=== PATIENT | male | born 1940 | race Caucasian/White ===

== ENCOUNTER 2016-10-26 12:14 | Emergency (ER) | payer MEDICARE, MEDICAID ==
[2016-10-26 12:51] VITALS: BP 154/45
--- NOTE | 2016-10-26 13:08 | EDM.PDOC ---
ED HPI DIZZINESS - General Time Seen by Provider: 10/26/16 12:30 Source of Information: Reports: Patient Exam Limitations: Reports: No limitations - History of Present Illness INITIAL COMMENTS - FREE TEXT/NARRATIVE: Patient presents with dizziness that has been worsening the last four days. A few days before that he noticed he felt dizzy when first standing up from sitting or lying; now he notices it when sitting up from lying but not from standing to sitting. He denies spinning but says it is lightheaded and almost like he could black out. This lasts 1-2 minutes if he remains standing but after resolving can recur while standing or walking. He has a chronic loose, unproductive cough that is unchanged with his COPD. Chronic dyspnea that seems a little worse lately. He denies any chest pain or pressure, N/V, diarrhea but has been constipated the last few days; did pass stool last night. He hasn't been eating much the last 2-3 days and says he just has no appetite. He had half a piece of chicken pot pie last night but really only fluids (water, manpreet- aid and milk) the last 2 days. He denies alcohol but smokes hand-rolled cigarettes about 20-30 a day for the last 65 years. For the last 18 months he has had a Pierce catheter that gets changed monthly; this is for prostate hypertrophy and cancer that was causing kidney failure due to urine retention/ obstruction. He hasn't noticed any cloudy urine but says he saw blood in it two weeks ago. He saw his PCP in [place] a week ago for the dizziness and when it worsened 4 days ago was told to stop his Atenolol which he did. He has hypertension, prostate cancer that failed treatment and is currently untreated, untreated kidney disease. He lived much of his life homeless, on the streets of [place] and [place], but has been living in a house provided by some friends the last 14 years. - Related Data Allergies/ADRs: Allergies Allergy/AdvReac Type Severity Reaction Status Date / Time No Known Drug Allergies Allergy Cannot Verified 03/11/15 13:55 Remember Home Meds: Home Meds Atenolol [Tenormin] 25 mg PO DAILY 03/11/15 [History] Finasteride [Proscar] 5 mg PO DAILY 03/11/15 [History] Hydrocodone/Acetaminophen [[place] 10-325] 1 each PO Q6H PRN 03/11/15 [History] Sertraline [Zoloft] 25 mg PO DAILY 03/11/15 [History] Tamsulosin [Flomax] 0.4 mg PO DAILY 03/11/15 [History] atorvaSTATin [Lipitor] 10 mg PO DAILY 03/11/15 [History] Warfarin [Coumadin] 2.5 mg PO DAILY 10/26/16 [History] Past Medical History Other Genitourinary History: chronic kidney disease, prostate CA Social & Family History - Tobacco Use Smoking Status *Q: Current Every Day Smoker Years of Tobacco use: 63 - Alcohol Use Days Per Week of Alcohol Use: 2 Number of Drinks Per Day: 5 Total Drinks Per Week: 10 - Recreational Drug Use Recreational Drug Use: No ED ROS GENERAL - Review of Systems Review Of Systems: See Below Constitutional: Denies: fever, diaphoresis HEENT: Denies: Vertigo, Vision change Respiratory: Reports: Shortness of Breath, Cough. Denies: Sputum Cardiovascular: Reports: Lightheadedness. Denies: Chest pain, Edema, Syncope Endocrine: Denies: fatigue GI/Abdominal: Reports: Anorexia, Constipation. Denies: Abdominal pain, Diarrhea , Nausea, Vomiting : Denies: dysuria, flank pain Musculoskeletal: Reports: no symptoms Skin: Denies: cyanosis, jaundice, mottled, pallor, diaphoresis Neurological: Reports: Dizziness. Denies: Confusion, Seizure, Trouble Speaking , Change in Speech Psychiatric: Denies: Agitation, Anxiety, Confusion ED EXAM, DIZZINESS - Physical Exam Exam: See Below Exam Limited By: No limitations General Appearance: alert, WD/WN, no apparent distress Eye Exam: bilateral eye: EOMI, normal inspection, PERRL Ears: normal external exam, hearing grossly normal Nose: normal inspection Throat/Mouth: Normal lips, Normal voice, No airway compromise Head Exam: atraumatic, normocephalic Neck: normal inspection, supple, non-tender, full range of motion Respiratory/Chest: no respiratory distress, no accessory muscle use, other ( mild crackles and transient inspiratory wheeze heard throughout). No: decreased breath sounds, stridor Cardiovascular: normal peripheral pulses, regular rate, rhythm, no murmur GI/Abdominal: normal bowel sounds, soft, non tender, no organomegaly, no distention, no mass Neurological: alert, normal mood/affect, CN II-XII intact, no motor/sensory deficits, oriented x 3 Extremities: normal inspection, normal range of motion, no pedal edema Psychiatric: normal affect, normal mood Skin Exam: Warm, Dry, Intact, Normal color, No rash EKG INTERPRETATION Rhythm: NSR Course - Vital Signs Last Recorded V/S: Last Vital Signs Temp 98.0 F 10/26/16 12:32 Pulse 98 10/26/16 12:32 Resp 22 H 10/26/16 12:32 BP 154/45 H 10/26/16 12:32 Pulse Ox 95 10/26/16 12:32 Orthostatic Blood Pressure [ 117/70 Standing] Orthostatic Blood Pressure [ 115/50 Sitting] Orthostatic Blood Pressure [ 146/59 Supine] - Orders/Labs/Meds Orders: Active Orders 24 hr Category Date Time Status EKG Documentation Completion [RC] ASDIRECTED Care 10/26/16 12:47 Active Chest 2V [CR] Stat Exams 10/26/16 12:44 Taken Chest wo Cont [CT] Stat Exams 10/26/16 14:09 Taken CULTURE URINE [RM] Stat Lab 10/26/16 13:40 Received EKG 12 Lead [EK] Routine Ther 10/26/16 12:44 Ordered Labs: Laboratory Tests 10/26/16 10/26/16 10/26/16 Range/Units 13:00 13:00 13:00 WBC 15.1 H (5.0-10.0) 10^3/uL RBC 3.57 L (4.50-6.00) 10^6/uL Hgb 10.7 L (13.0-17.0) g/dL Hct 32.5 L (40.0-52.0) % MCV 91.2 (82.0-92.0) fL MCH 30.1 (27.0-31.0) pg MCHC 33.0 (32.0-36.0) g/dL RDW 14.2 (11.5-14.5) % Plt Count 366 H (150-300) 10^3/uL MPV 8.1 (7.4-10.4) fL Neut % (Auto) 87.6 H (50.0-70.0) % Lymph % (Auto) 8.2 L (20.0-40.0) % [place] % (Auto) 3.9 (2.0-8.0) % Eos % (Auto) 0.3 L (1.0-3.0) % Baso % (Auto) 0.0 (0.0-1.0) % Neut # 13.3 H (2.5-7.0) 10^3/uL Lymph # 1.2 (1.0-4.0) 10^3/uL [place] # 0.6 (0.1-0.8) 10^3/uL Eos # 0.0 L (0.1-0.3) 10^3/uL Baso # 0.0 (0.0-0.1) 10^3/uL PT 37.5 H (8.9-11.4) SEC INR 3.5 H (0.9-1.1) Sodium 141 (136-145) mmol/L Potassium 5.4 H (3.3-5.3) mmol/L Chloride 102 (98-115) mmol/L Carbon Dioxide 20.7 L (21.0-32.0) mmol/L BUN 47 H (6-25) mg/dL Creatinine 2.38 H (0.51-1.17) mg/dL Est Cr Clr Drug Dosing 26.41 mL/min Estimated GFR (MDRD) 27 mL/min Glucose 125 H (70-110) mg/dL Calcium 8.4 L (8.7-10.3) mg/dL Total Bilirubin 0.2 (0.2-1.0) mg/dL AST 40 H (15-37) U/L ALT 20 (12-78) U/L Alkaline Phosphatase 730 H (46-116) IU/L Total Protein 6.4 (6.4-8.2) g/dL Albumin 2.30 L (3.00-4.80) g/dL Specimen Type Urine Color (YELLOW) Urine Appearance (CLEAR) Urine pH (5.0-9.0) Ur Specific [place] (1.005-1.030) Urine Protein (NEGATIVE) mg/dL Urine Glucose (UA) (NEGATIVE) mg/dL Urine Ketones (NEGATIVE) mg/dL Urine Occult Blood (NEGATIVE) Urine Nitrite (NEGATIVE) Urine Bilirubin (NEGATIVE) Urine Urobilinogen (0.2-1.0) E.U./dL Ur Leukocyte Esterase (NEGATIVE) Urine RBC /HPF Urine WBC /HPF Ur Epithelial Cells /LPF Other Crystals /HPF Amorphous Sediment (0/HPF) /HPF Urine Bacteria (NONE TO FEW) /HPF Urine Other Urine Yeast (NEGATIVE) /HPF Urinalysis Comment 10/26/16 Range/Units 13:40 WBC (5.0-10.0) 10^3/uL RBC (4.50-6.00) 10^6/uL Hgb (13.0-17.0) g/dL Hct (40.0-52.0) % MCV (82.0-92.0) fL MCH (27.0-31.0) pg MCHC (32.0-36.0) g/dL RDW (11.5-14.5) % Plt Count (150-300) 10^3/uL MPV (7.4-10.4) fL Neut % (Auto) (50.0-70.0) % Lymph % (Auto) (20.0-40.0) % [place] % (Auto) (2.0-8.0) % Eos % (Auto) (1.0-3.0) % Baso % (Auto) (0.0-1.0) % Neut # (2.5-7.0) 10^3/uL Lymph # (1.0-4.0) 10^3/uL [place] # (0.1-0.8) 10^3/uL Eos # (0.1-0.3) 10^3/uL Baso # (0.0-0.1) 10^3/uL PT (8.9-11.4) SEC INR (0.9-1.1) Sodium (136-145) mmol/L Potassium (3.3-5.3) mmol/L Chloride (98-115) mmol/L Carbon Dioxide (21.0-32.0) mmol/L BUN (6-25) mg/dL Creatinine (0.51-1.17) mg/dL Est Cr Clr Drug Dosing mL/min Estimated GFR (MDRD) mL/min Glucose (70-110) mg/dL Calcium (8.7-10.3) mg/dL Total Bilirubin (0.2-1.0) mg/dL AST (15-37) U/L ALT (12-78) U/L Alkaline Phosphatase (46-116) IU/L Total Protein (6.4-8.2) g/dL Albumin (3.00-4.80) g/dL Specimen Type Urinfol Urine Color Dark yellow H (YELLOW) Urine Appearance Turbid H (CLEAR) Urine pH >= 9.0 (5.0-9.0) Ur Specific [place] 1.015 (1.005-1.030) Urine Protein 100 H (NEGATIVE) mg/dL Urine Glucose (UA) Negative (NEGATIVE) mg/dL Urine Ketones Negative (NEGATIVE) mg/dL Urine Occult Blood Small H (NEGATIVE) Urine Nitrite Negative (NEGATIVE) Urine Bilirubin Negative (NEGATIVE) Urine Urobilinogen 0.2 (0.2-1.0) E.U./dL Ur Leukocyte Esterase Large H (NEGATIVE) Urine RBC 0-5 /HPF Urine WBC Packed /HPF Ur Epithelial Cells Rare /LPF Other Crystals Few /HPF Amorphous Sediment Few (0/HPF) /HPF Urine Bacteria Many H (NONE TO FEW) /HPF Urine Other See note H Urine Yeast Few H (NEGATIVE) /HPF Urinalysis Comment Meds: Medications Discontinued Medications Generic Name Dose Route Start Last Admin Trade Name Freq PRN Reason Stop Dose Admin Sodium Chloride 1,000 mls @ 999 mls/hr 10/26/16 14:00 10/26/16 13:55 Normal Saline IV 10/26/16 15:00 999 mls/hr .BOLUS ONE Administration Sodium Chloride 1,000 mls @ 999 mls/hr 10/26/16 13:42 10/26/16 15:11 Normal Saline IV 10/26/16 14:42 Not Given .BOLUS ONE Ciprofloxacin/Dextrose 400 mg/ 200 mls @ 200 mls/hr 10/26/16 14:24 10/26/16 14:45 Premix IV 10/26/16 15:23 200 mls/hr ONETIME ONE Administration - Re-Assessments/Exams Free Text/Narrative Re-Assessment/Exam: 10/26/16 16:10 CXR showed possible paratracheal mass but 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 CT does indicate concern for likely metastatic cancer from prostate to vertebrae and lung. Recommend bone scan. Discussed this with patient and he already has been aware of likely metastatic disease and continues to wish no further testing or treatment for it. Will treat the UTI and follow up with PCP. Orthostatic blood pressures have improved following IV fluids. Treated with IV Cipro in ER also. His dizziness is much improved as well. Patient discharged in stable condition. Departure - Departure Time of Disposition: 16:04 Disposition: Home, Self-Care 01 Condition: good Clinical Impression: Prostatic cancer UTI (urinary tract infection) Qualifiers: Urinary tract infection type: acute cystitis Hematuria presence: without hematuria Qualified Code(s): N30.00 - Acute cystitis without hematuria Additional Instructions: 1. Take the Cipro antibiotic as directed. 2. Drink 8 cups of water daily. 3. Follow up with your PCP in 7-10 days for recheck; sooner if worsening. 4. Call the Coumadin clinic to see when you should take coumadin based on your INR of 3.5 and treatment with Cipro. - My Orders Last 24 Hours: My Active Orders 10/26/16 12:44 Chest 2V [CR] Stat EKG 12 Lead [EK] Routine 10/26/16 12:47 EKG Documentation Completion [RC] ASDIRECTED 10/26/16 13:40 CULTURE URINE [RM] Stat 10/26/16 14:09 Chest wo Cont [CT] Stat - Assessment/Plan Last 24 Hours: My Active Orders 10/26/16 12:44 Chest 2V [CR] Stat EKG 12 Lead [EK] Routine 10/26/16 12:47 EKG Documentation Completion [RC] ASDIRECTED 10/26/16 13:40 CULTURE URINE [RM] Stat 10/26/16 14:09 Chest wo Cont [CT] Stat
[2016-10-26] MEDS ORDERED: Sodium Chloride 0.9% 1,000 ML IV ONE ×2 (13:42→14:00)
[2016-10-26] MEDS ORDERED: Ciprofloxacin in D5W 400 MG in Premix Bag 1 BAG IV ONE ×2 (14:24)
== END 2016-10-26 16:27 | disposition home or self-care (01) ==
LOC: KA.ED 12:14
DX: R42 Dizziness and giddiness (principal); N39.0 Urinary tract infection, site not specified; C61 Malignant neoplasm of prostate; J44.9 Chronic obstructive pulmonary disease, unspecified; N18.9 Chronic kidney disease, unspecified; Z79.01 Long term (current) use of anticoagulants; Z79.899 Other long term (current) drug therapy; F17.210 Nicotine dependence, cigarettes, uncomplicated; Z93.6 Other artificial openings of urinary tract status
CPT/HCPCS: 36415; 71020; 71250; 80053; 81001; 85025; 85610; 87086; J0744; J7030; 87088; 87186; 93005; 96361; 96365; 99284

== ENCOUNTER 2016-12-23 12:10 | Inpatient (IN) | payer MEDICARE, MEDICAID ==
[2016-12-23] MEDS ORDERED: Sodium Chloride 0.9% 1,000 ML IV ONE (12:54)
--- NOTE | 2016-12-23 13:19 | EDM.PDOC ---
ED HPI GENERAL MEDICAL PROBLEM - General Time Seen by Provider: 12/23/16 12:50 Source of Information: Reports: Patient History Limitations: Reports: No Limitations - History of Present Illness INITIAL COMMENTS - FREE TEXT/NARRATIVE: Patient presents with gross hematuria in his larry bag. He has had chronic anemia and is on warfarin. He denies any pain or fever. - Related Data Allergies Allergy/AdvReac Type Severity Reaction Status Date / Time No Known Drug Allergies Allergy Cannot Verified 12/23/16 13:03 Remember Home Meds: Home Meds Finasteride [Proscar] 5 mg PO DAILY 03/11/15 [History] Hydrocodone/Acetaminophen [[place] 10-325] 1 each PO Q6H PRN 03/11/15 [History] Sertraline [Zoloft] 25 mg PO DAILY 03/11/15 [History] Tamsulosin [Flomax] 0.4 mg PO DAILY 03/11/15 [History] atorvaSTATin [Lipitor] 10 mg PO DAILY 03/11/15 [History] Warfarin [Coumadin] 2.5 mg PO DAILY 10/26/16 [History] Past Medical History Cardiovascular History: Reports: Blood Clots/VTE/DVT Respiratory History: Reports: COPD Genitourinary History: Reports: Other (See Below) Other Genitourinary History: chronic kidney disease, prostate CA Musculoskeletal History: Reports: Arthritis Neurological History: Reports: Vertigo Oncologic (Cancer) History: Reports: Prostate - Past Surgical History HEENT Surgical History: Reports: Cataract Surgery Social & Family History - Family History Family Medical History: Noncontributory - Tobacco Use Smoking Status *Q: Current Every Day Smoker Years of Tobacco use: 63 Packs/Tins Daily: 1 Used Tobacco, but Quit: No Second Hand Smoke Exposure: No - Caffeine Use Caffeine Use: Reports: Coffee - Alcohol Use Days Per Week of Alcohol Use: 2 Number of Drinks Per Day: 5 Total Drinks Per Week: 10 - Recreational Drug Use Recreational Drug Use: No ED ROS GENERAL - Review of Systems Review Of Systems: See Below Constitutional: Denies: Fever, Chills, Malaise, Weakness HEENT: Denies: Throat Pain, Vision Change Respiratory: Denies: Shortness of Breath, Cough Cardiovascular: Denies: Chest Pain, Lightheadedness, Syncope GI/Abdominal: Denies: Abdominal Pain, Nausea, Vomiting : Reports: Hematuria. Denies: Dysuria, Flank Pain Musculoskeletal: Denies: Neck Pain, Shoulder Pain Skin: Reports: Pallor. Denies: Cyanosis, Jaundice, Mottled, Diaphoresis Neurological: Denies: Confusion, Dizziness, Headache, Seizure, Syncope Psychiatric: Denies: Agitation, Anxiety, Confusion ED EXAM, RENAL/ - Physical Exam Exam: See Below Exam Limited By: No Limitations General Appearance: Alert, WD/WN, No Apparent Distress Eye Exam: Bilateral Eye: EOMI, Normal Inspection, PERRL Ears: Normal External Exam, Hearing Grossly Normal Nose: Normal Inspection, No Blood Throat/Mouth: Normal Lips, Normal Voice, No Airway Compromise Head: Atraumatic, Normocephalic Neck: Normal Inspection, Full Range of Motion Respiratory/Chest: No Respiratory Distress, Lungs Clear Cardiovascular: Regular Rate, Rhythm, No Murmur GI/Abdominal: Normal Bowel Sounds, Soft, Non-Tender, No Organomegaly, No Distention Back Exam: CVA Tenderness (R) (mild to moderate). No: CVA Tenderness (L) Extremities: Normal Range of Motion, Non-Tender, No Pedal Edema Neurological: Alert, Oriented, Normal Cognition, No Motor/Sensory Deficits Psychiatric: Normal Affect, Normal Mood Skin Exam: Warm, Dry, Intact, No Rash, Pallor Course - Orders/Labs/Meds Orders: Active Orders 24 hr Category Date Time Status BASIC METABOLIC PANEL,BMP [CHEM] Stat Lab 12/23/16 12:10 Received INR,PT,PROTHROMBIN TIME [COAG] Stat Lab 12/23/16 12:10 Received RED BLOOD CELLS LP [BBK] Stat Lab 12/23/16 12:40 Ordered TYPE AND SCREEN [BBK] Stat Lab 12/23/16 12:40 Ordered TYPE AND SCREEN [BBK] Stat Lab 12/23/16 12:53 Ordered UA W/MICROSCOPIC [URIN] Stat Lab 12/23/16 12:35 Received Sodium Chloride 0.9% [Normal Saline] 1,000 ml Med 12/23/16 12:54 Active IV .BOLUS Blood Transfusion Reflex Orders [OM.PC] Routine Oth 12/23/16 12:53 Ordered Medication Orders Sodium Chloride (Normal Saline) 1,000 mls @ 999 mls/hr IV .BOLUS ONE Stop: 12/23/16 13:54 Last Admin: 12/23/16 13:04 Dose: 999 mls/hr Labs: Laboratory Tests 12/23/16 Range/Units 12:10 WBC 16.6 H (5.0-10.0) 10^3/uL RBC 2.61 L (4.50-6.00) 10^6/uL Hgb 7.7 L (13.0-17.0) g/dL Hct 23.2 L (40.0-52.0) % MCV 89.0 (82.0-92.0) fL MCH 29.4 (27.0-31.0) pg MCHC 33.0 (32.0-36.0) g/dL RDW 16.0 H (11.5-14.5) % Plt Count 330 H (150-300) 10^3/uL MPV 7.8 (7.4-10.4) fL Neut % (Auto) 88.0 H (50.0-70.0) % Lymph % (Auto) 6.4 L (20.0-40.0) % [place] % (Auto) 4.8 (2.0-8.0) % Eos % (Auto) 0.4 L (1.0-3.0) % Baso % (Auto) 0.4 (0.0-1.0) % Neut # (Auto) 14.5 H (2.5-7.0) 10^3/uL Lymph # (Auto) 1.1 (1.0-4.0) 10^3/uL [place] # (Auto) 0.8 (0.1-0.8) 10^3/uL Eos # (Auto) 0.1 (0.1-0.3) 10^3/uL Baso # (Auto) 0.1 (0.0-0.1) 10^3/uL Meds: Medications Generic Name Dose Route Start Last Admin Trade Name Freq PRN Reason Stop Dose Admin Sodium Chloride 1,000 mls @ 999 mls/hr 12/23/16 12:54 12/23/16 13:04 Normal Saline IV 12/23/16 13:54 999 mls/hr .BOLUS ONE Administration - Re-Assessments/Exams Free Text/Narrative Re-Assessment/Exam: 12/23/16 13:46 The gross hematuria made lab analysis difficult but was run on the supernatant they told me. We will give 2 units of blood after the type/cross. I talked with Dr. Dyer who will admit patient. He wants to use Vit K rather than FFP ( which is not in house currently). Giving a gram of Rocephin which showed susceptible on urine culture two months ago. Cipro was also susceptible but has higher risk of increasing the warfarin effect so will avoid today. Patient stable. 12/23/16 14:57 Patient will be admitted for transfusion and management of anemia, coumadin therapy and UTI. Departure - Departure Time of Disposition: 14:57 Disposition: Admitted As Inpatient 66 Condition: good Clinical Impression: Hematuria, Elevated international normalized ratio (INR) due to prior anticoagulant medication ingestion Anemia Qualifiers: Anemia type: iron deficiency Iron deficiency anemia type: chronic blood loss Qualified Code(s): D50.0 - Iron deficiency anemia secondary to blood loss ( chronic) UTI (urinary tract infection) due to urinary indwelling Larry catheter Qualifiers: Indwelling urinary catheter type: indwelling urethral catheter Encounter type: initial encounter Qualified Code(s): T83.511A - Infection and inflammatory reaction due to indwelling urethral catheter, initial encounter; N39.0 - Urinary tract infection, site not specified Chronic renal failure Qualifiers: Chronic kidney disease stage: unspecified stage Qualified Code(s): N18.9 - Chronic kidney disease, unspecified - Discharge Information - My Orders Last 24 Hours: My Active Orders 12/23/16 12:10 BASIC METABOLIC PANEL,BMP [CHEM] Stat INR,PT,PROTHROMBIN TIME [COAG] Stat 12/23/16 12:35 UA W/MICROSCOPIC [URIN] Stat 12/23/16 12:40 RED BLOOD CELLS LP [BBK] Stat TYPE AND SCREEN [BBK] Stat 12/23/16 12:53 TYPE AND SCREEN [BBK] Stat Blood Transfusion Reflex Orders [OM.PC] Routine 12/23/16 12:54 Sodium Chloride 0.9% [Normal Saline] 1,000 ml IV .BOLUS - Assessment/Plan Last 24 Hours: My Active Orders 12/23/16 12:10 BASIC METABOLIC PANEL,BMP [CHEM] Stat INR,PT,PROTHROMBIN TIME [COAG] Stat 12/23/16 12:35 UA W/MICROSCOPIC [URIN] Stat 12/23/16 12:40 RED BLOOD CELLS LP [BBK] Stat TYPE AND SCREEN [BBK] Stat 12/23/16 12:53 TYPE AND SCREEN [BBK] Stat Blood Transfusion Reflex Orders [OM.PC] Routine 12/23/16 12:54 Sodium Chloride 0.9% [Normal Saline] 1,000 ml IV .BOLUS
[2016-12-23 13:25] LABS: CHLORIDE,CL 106 mmol/L (98-115); SODIUM,NA 141 mmol/L (136-145)
[2016-12-23] MEDS: cefTRIAXone 1 GM Vial IVPUSH SCH (14:03)
[2016-12-23] MEDS ORDERED: Sodium Chloride 0.9% 250 ML IV SCH (15:30)
[2016-12-23] MEDS: Acetaminophen/HYDROcodone 325-10 MG Tab PO PRN (23:37)
[2016-12-24] MEDS: Finasteride 5 MG Tab PO SCH (09:32)
[2016-12-24] MEDS: Tamsulosin 0.4 MG Cap.ER PO SCH (09:32)
[2016-12-24] MEDS: Acetaminophen/HYDROcodone 325-10 MG Tab PO PRN ×2 (09:32→19:31)
[2016-12-24] MEDS: Sertraline 50 MG Tab PO SCH (09:34)
--- NOTE | 2016-12-24 09:42 | PCM.HP ---
H&P History of Present Illness - General Date of Service: 12/24/16 Admit Problem/Dx: Admission Diagnosis/Problem Admission Diagnosis/Problem Anemia due to blood loss Source of Information: Provider History Limitations: Reports: No Limitations Bilateral Shoulder Pain Score (Numeric/FACES): 6 - Related Data Allergies/Adverse Reactions: Allergies Allergy/AdvReac Type Severity Reaction Status Date / Time No Known Drug Allergies Allergy Cannot Verified 12/23/16 13:03 Remember Home Medications: Home Meds Finasteride [Proscar] 5 mg PO DAILY 03/11/15 [History] Hydrocodone/Acetaminophen [[place] 10-325] 1 each PO Q6H PRN 03/11/15 [History] Sertraline [Zoloft] 25 mg PO DAILY 03/11/15 [History] Tamsulosin [Flomax] 0.4 mg PO DAILY 03/11/15 [History] atorvaSTATin [Lipitor] 10 mg PO DAILY 03/11/15 [History] Warfarin [Coumadin] 2.5 mg PO DAILY 10/26/16 [History] Past Medical History HEENT History: Reports: Hard of Hearing Cardiovascular History: Reports: Blood Clots/VTE/DVT Respiratory History: Reports: COPD Other Respiratory History: Denies dyspnea today Genitourinary History: Reports: Other (See Below) Other Genitourinary History: chronic kidney disease, prostate CA Musculoskeletal History: Reports: Arthritis Neurological History: Reports: Vertigo Psychiatric History: Reports: Anxiety, Depression Hematologic History: Reports: Blood Transfusion(s) Oncologic (Cancer) History: Reports: Prostate - Infectious Disease History Infectious Disease History: Reports: Chicken Pox, Influenza, Measles, Mumps - Past Surgical History HEENT Surgical History: Reports: Cataract Surgery Social & Family History - Family History HEENT: Reports: None Cardiac: Reports: Other (See Below) (Both mother father unknown etiology) Respiratory: Reports: None GI: Reports: None : Reports: None OBGYN: Reports: None Musculoskeletal: Reports: None Neurological: Reports: None Psychiatric: Reports: None Endocrine/Metabolic: Reports: None Hematologic: Reports: None Immunologic: Reports: None Dermatologic: Reports: None Oncologic: Reports: None - Tobacco Use Smoking Status *Q: Current Every Day Smoker Years of Tobacco use: 63 Packs/Tins Daily: 1.5 Used Tobacco, but Quit: No Second Hand Smoke Exposure: No - Caffeine Use Caffeine Use: Reports: Coffee, Soda Caffeine Use Comment: coffee daily, seldom soda - Alcohol Use Days Per Week of Alcohol Use: 2 Number of Drinks Per Day: 1 Total Drinks Per Week: 2 Date of Last Drink: 12/20/16 - Recreational Drug Use Recreational Drug Use: No H&P Review of Systems - Review of Systems: Review Of Systems: See Below General: Reports: Weakness, Other (loss of balance at times, headaches on/off started about a week ago. ) HEENT: Reports: Headaches, Vertigo. Denies: Sore Throat Pulmonary: Reports: Cough, Sputum Cardiovascular: Denies: Chest Pain, Palpitations Gastrointestinal: Reports: Constipation (2 days last BM. ) Genitourinary: Reports: Other (Pierce catherter--chronic--gets changed monthly. ) Musculoskeletal: Reports: Shoulder Pain, Arm Pain, Back Pain, Muscle Pain. Denies: Muscle Stiffness Skin: Reports: Dryness, Bruising Psychiatric: Reports: No Symptoms Exam - Exam Exam: See Below - Vital Signs Vital Signs: Last Vital Signs Temp 97.0 F 12/24/16 06:51 Pulse 67 12/24/16 06:51 Resp 20 12/24/16 06:51 BP 123/67 12/24/16 06:51 Pulse Ox 97 12/24/16 06:51 Weight: 174 lb 11.2 oz - Exam General: Alert, Oriented, 4 HEENT: EOMI, Hearing Intact, Pupils Reactive, Other (mucous in eyes. ) Neck: Supple Lungs: Rhonchi. No: Wheezing Cardiovascular: Regular Rate, Regular Rhythm Abdomen: Normal Bowel Sounds, Soft (Male) Exam: Deferred Back Exam: No: CVA Tenderness (L), CVA Tenderness (R) Neurological: Cranial Nerves Intact, Reflexes Equal Bilateral Neuro Extensive - Mental Status: Alert, Oriented x3, Normal Mood/Affect, Normal Cognition Neuro Extensive - Motor, Sensory, Reflexes: CN II-XII Intact, Normal Gait, Normal Reflexes Psychiatric: Alert, Normal Affect, Normal Mood. No: Anxious - Patient Data Lab Results last 24 hrs: Laboratory Results - last 24 hr 12/24/16 12/24/16 Range/Units 07:00 07:00 WBC 14.0 H (5.0-10.0) 10^3/uL RBC 3.06 L (4.50-6.00) 10^6/uL Hgb 8.7 L (13.0-17.0) g/dL Hct 27.0 L (40.0-52.0) % MCV 88.3 (82.0-92.0) fL MCH 28.4 (27.0-31.0) pg MCHC 32.2 (32.0-36.0) g/dL RDW 15.3 H (11.5-14.5) % Plt Count 278 (150-300) 10^3/uL MPV 8.6 (7.4-10.4) fL Neut % (Auto) 78.5 H (50.0-70.0) % Lymph % (Auto) 13.7 L (20.0-40.0) % [place] % (Auto) 6.0 (2.0-8.0) % Eos % (Auto) 0.8 L (1.0-3.0) % Baso % (Auto) 1.0 (0.0-1.0) % Neut # (Auto) 11.1 H (2.5-7.0) 10^3/uL Lymph # (Auto) 1.9 (1.0-4.0) 10^3/uL [place] # (Auto) 0.8 (0.1-0.8) 10^3/uL Eos # (Auto) 0.1 (0.1-0.3) 10^3/uL Baso # (Auto) 0.1 (0.0-0.1) 10^3/uL PT 49.4 H (8.9-11.4) SEC INR 4.6 H* (0.9-1.1) Result Diagrams: 12/25/16 09:15 12/23/16 12:10 *Q Meaningful Use (ADM) - VTE *Q VTE Criteria *Q: - Stroke *Q Stroke Criteria *Q: - AMI *Q AMI Criteria *Q: Problem List Initiated/Reviewed/Updated: Yes Orders Last 24hrs: Active Orders 24 hr Category Date Time Status Patient Status [ADT] Routine ADT 12/23/16 14:51 Ordered Bedrest Bathroom Privileges [RC] ASDIRECTED Care 12/23/16 15:15 Active Intake and Output [RC] 1400,2200,0600 Care 12/23/16 15:15 Active Up ad Jana [RC] ASDIRECTED Care 12/23/16 15:15 Active Vital Signs [RC] 0300,0700,1100,1500,1900,2300 Care 12/23/16 15:15 Active Regular Diet [DIET] Diet 12/23/16 Dinner Active INR,PT,PROTHROMBIN TIME [COAG] AM Lab 12/25/16 05:11 Ordered Acetaminophen/HYDROcodone [[place] 325-10 MG] Med 12/23/16 19:45 Active 1 tab PO Q6H PRN Finasteride [Proscar] Med 12/24/16 09:00 Active 5 mg PO DAILY Sertraline [Zoloft] Med 12/24/16 09:00 Active 25 mg PO DAILY Sodium Chloride 0.9% [Normal Saline] 250 ml Med 12/23/16 15:30 Active IV ASDIRECTED Tamsulosin [Flomax] Med 12/24/16 09:00 Active 0.4 mg PO DAILY Transfuse RBC [Transfuse Red Blood Cells] [COMM] Urgent Oth 12/23/16 15:16 Ordered Medication Orders Hydrocodone Bitart/Acetaminophen ([place] 325-10 Mg) 1 tab PO Q6H PRN PRN Reason: Pain Last Admin: 12/23/16 23:37 Dose: 1 tab Ceftriaxone Sodium (Rocephin) 1 gm IVPUSH Q24H ANI Last Admin: 12/23/16 14:03 Dose: 1 gm Finasteride (Proscar) 5 mg PO DAILY ANI Sodium Chloride (Normal Saline) 250 mls @ 100 mls/hr IV ASDIRECTED ANI Sertraline HCl (Zoloft) 25 mg PO DAILY ANI Tamsulosin HCl (Flomax) 0.4 mg PO DAILY [facility] Assessment/Plan Comment:: HISTORY OF PRESENT ILLNESS 76-year-old gentleman was admitted through the ED do to gross hematuria in his indwelling Pierce catheter. He does have a history of anemia with prostate CA and renal disease however I do not see he has ever had an anemia workup. He no longer takes Lupron injections for prostate CA. He's had an indwelling Pierce catheter for over a year as he refused a suprapubic catheter. His initial hemoglobin was 7.7 and he did receive 2 units of transfusion upon admission. He does have a history of DVT right lower extremities (2 years ago due to edema right lower extremity) without pulmonary embolism history and he is been on 3 mg of Coumadin daily. His INR was elevated to 7 and since he did have some gross hematuria he was treated with vitamin K. UROLOGICAL HISTORY Most recent urological consultation was October 2015; due to the patient's castrate resistant metastatic prostate cancer, urologist recommended medical oncology evaluation at that time however Efrain had refused. He does have a history of bilateral hydroureteronephrosis along with a history of urinary retention however he has refused suprapubic catheter and has agreed for indwelling Pierce catheterization--to be changed monthly. CODE STATUS full code IMPRESSION/PLAN Hematuria, gross, elevated INR. Will hold Coumadin, monitor for any hemodynamic instability. Vitamin K given last night we'll assess INR in a.m. History of DVT; right, common femoral vein, proximal deep femoral vein, proximal to more vein and popliteal veins, has been on Coumadin since September, Chronic kidney disease, BUN elevated likely due to hemolysis/bleeding, baseline creatinine 2.2-2.4 History of bilateral hydroureteronephrosis along with a history of urinary retention, indwelling Pierce catheter, due for catheter change, Dizziness, with recent recent history of orthostatic hypotension, blood pressure slightly low, since indwelling Pierce catheter no longer requiring Alpha -minh medication, discontinue both finasteride and Flomax Tobacco dependency, 28 mg combined nicotine patch applied SECONDARY DIAGNOSIS Hyperlipidemia Hypertension, blood pressure slightly low, discontinue alpha-minh medication History of prostate CA, no longer on Lupron. Depression, Secondary hyperparathyroidism COPD, stable. Ongoing smoker
[2016-12-24] MEDS ORDERED: Nicotine 21 MG/24 Hr Patch TRDERM ONE (09:45)
[2016-12-24] MEDS: Nicotine 7 MG/24 Hr Patch TRDERM SCH (10:20)
[2016-12-24] MEDS: Magnesium Hydroxide 400 MG/5 ML Susp 30 ML Cup PO SCH (10:20)
[2016-12-24] MEDS: Docusate Sodium 100 MG Cap PO SCH (10:20)
[2016-12-24] MEDS: cefTRIAXone 1 GM Vial IVPUSH SCH (13:56)
[2016-12-25] MEDS: Magnesium Hydroxide 400 MG/5 ML Susp 30 ML Cup PO SCH (08:13)
[2016-12-25] MEDS: Acetaminophen/HYDROcodone 325-10 MG Tab PO PRN ×2 (08:14→18:48)
[2016-12-25] MEDS: Tamsulosin 0.4 MG Cap.ER PO SCH (08:15)
[2016-12-25] MEDS: Docusate Sodium 100 MG Cap PO SCH (08:15)
[2016-12-25] MEDS: Nicotine 7 MG/24 Hr Patch TRDERM SCH (08:15)
[2016-12-25] MEDS: Finasteride 5 MG Tab PO SCH (08:16)
[2016-12-25] MEDS: Sertraline 50 MG Tab PO SCH (08:17)
[2016-12-25] MEDS: Nicotine 21 MG/24 Hr Patch TRDERM SCH (08:19)
--- NOTE | 2016-12-25 10:09 | PCM.PN ---
- General Info Date of Service: 12/25/16 Functional Status: Reports: new symptoms (New symptoms including left elbow pain and bilateral shoulder pain,). Denies: pain controlled - Review of Systems General: Denies: Fever, Weakness HEENT: Reports: no symptoms Pulmonary: Reports: cough. Denies: shortness of breath, wheezing Cardiovascular: Reports: No Symptoms Gastrointestinal: Reports: No symptoms Genitourinary: Reports: hematuria, other (Indwelling Pierce catheter--bloody urine) Musculoskeletal: Reports: shoulder pain, arm pain (Right arm pain). Denies: joint swelling Skin: Reports: bruising Neurological: Reports: Dizziness, Difficulty Walking. Denies: Confusion, Change in Speech Psychiatric: Denies: agitation, cravings - Patient Data Vitals - most recent: Last Vital Signs Temp 96.8 F 12/25/16 06:52 Pulse 66 12/25/16 06:52 Resp 20 12/25/16 06:52 BP 124/65 12/25/16 06:52 Pulse Ox 98 12/25/16 06:52 Weight - most recent: 174 lb 11.2 oz I&O - last 24 hours: Intake & Output 12/24/16 12/25/16 12/25/16 22:59 06:59 14:59 Intake Total 990 200 Output Total 700 800 Balance 290 -600 Lab Results last 24 hrs: Laboratory Results - last 24 hr 12/25/16 12/25/16 Range/Units 07:49 09:15 WBC 14.4 H (5.0-10.0) 10^3/uL RBC 3.19 L (4.50-6.00) 10^6/uL Hgb 9.2 L (13.0-17.0) g/dL Hct 28.5 L (40.0-52.0) % MCV 89.4 (82.0-92.0) fL MCH 28.8 (27.0-31.0) pg MCHC 32.2 (32.0-36.0) g/dL RDW 16.0 H (11.5-14.5) % Plt Count 350 H (150-300) 10^3/uL MPV 8.1 (7.4-10.4) fL Neut % (Auto) 82.6 H (50.0-70.0) % Lymph % (Auto) 12.3 L (20.0-40.0) % [place] % (Auto) 3.8 (2.0-8.0) % Eos % (Auto) 0.9 L (1.0-3.0) % Baso % (Auto) 0.4 (0.0-1.0) % Neut # (Auto) 11.9 H (2.5-7.0) 10^3/uL Lymph # (Auto) 1.8 (1.0-4.0) 10^3/uL [place] # (Auto) 0.5 (0.1-0.8) 10^3/uL Eos # (Auto) 0.1 (0.1-0.3) 10^3/uL Baso # (Auto) 0.1 (0.0-0.1) 10^3/uL PT TNP INR 2.4 H (0.9-1.1) Med Orders - Current: Current Medications Hydrocodone Bitart/Acetaminophen ([place] 325-10 Mg) 1 tab PO Q6H PRN PRN Reason: Pain Last Admin: 12/25/16 08:14 Dose: 1 tab Ceftriaxone Sodium (Rocephin) 1 gm IVPUSH Q24H [facility] Last Admin: 12/24/16 13:56 Dose: 1 gm Docusate Sodium (Colace) 100 mg PO DAILY [facility] Last Admin: 12/25/16 08:15 Dose: 100 mg Finasteride (Proscar) 5 mg PO DAILY [facility] Last Admin: 12/25/16 08:16 Dose: 5 mg Magnesium Hydroxide (Milk Of Magnesia) 30 ml PO DAILY [facility] Last Admin: 12/25/16 08:13 Dose: 30 ml Nicotine (Habitrol) 7 mg TRDERM DAILY [facility] Last Admin: 12/25/16 08:15 Dose: 7 mg Nicotine (Habitrol) 21 mg TRDERM DAILY [facility] Last Admin: 12/25/16 08:19 Dose: 21 mg Sertraline HCl (Zoloft) 25 mg PO DAILY [facility] Last Admin: 12/25/16 08:17 Dose: 25 mg Tamsulosin HCl (Flomax) 0.4 mg PO DAILY [facility] Last Admin: 12/25/16 08:15 Dose: 0.4 mg Discontinued Medications Sodium Chloride (Normal Saline) 1,000 mls @ 999 mls/hr IV .BOLUS ONE Stop: 12/23/16 13:54 Last Admin: 12/23/16 13:04 Dose: 999 mls/hr Sodium Chloride (Normal Saline) 250 mls @ 100 mls/hr IV ASDIRECTED [facility] Nicotine (Habitrol) 21 mg TRDERM ONETIME ONE Stop: 12/24/16 09:46 Last Admin: 12/24/16 10:20 Dose: 21 mg Phytonadione (Aquamephyton) 5 mg SUBCUT ONETIME ONE Stop: 12/23/16 14:51 Last Admin: 12/23/16 16:21 Dose: 5 mg - Exam Quality Assessment: No: supplemental oxygen General: alert, oriented, cooperative, no acute distress Neck: supple Lungs: Rhonchi Cardiovascular: Regular Rate, Regular Rhythm (Male) Exam: Other (Suprapubic catheter intact) Back Exam: No: CVA Tenderness (L), CVA Tenderness (R) Extremities: normal pulses, other (Right elbow nonbloody this, no effusion-- tender to touch). No: edema Neurological: no new focal deficit Psy/Mental Status: alert, normal affect, normal mood - Problem List Review Problem List Initiated/Reviewed/Updated: Yes - My Orders Last 24 Hours: My Active Orders 12/24/16 09:45 Docusate Sodium [Colace] 100 mg PO DAILY Magnesium Hydroxide [Milk of Magnesia] 30 ml PO DAILY 12/24/16 10:00 Nicotine [Habitrol] 7 mg TRDERM DAILY 12/24/16 16:36 Resuscitation Status Routine 12/25/16 09:00 Nicotine [Habitrol] 21 mg TRDERM DAILY 12/25/16 09:15 SEDIMENTATION RATE MANUAL [HEME] Routine - Plan Plan:: HISTORY OF PRESENT ILLNESS 76-year-old gentleman was admitted through the ED do to gross hematuria in his indwelling Pierce catheter. He does have a history of anemia with prostate CA and renal disease however I do not see he has ever had an anemia workup. He no longer takes Lupron injections for prostate CA. He's had an indwelling Pierce catheter for over a year as he refused a suprapubic catheter. His initial hemoglobin was 7.7 and he did receive 2 units of transfusion upon admission. He does have a history of DVT right lower extremities (2 years ago due to edema right lower extremity) without pulmonary embolism history and he is been on 3 mg of Coumadin daily. His INR was elevated to 7 and since he did have some gross hematuria he was treated with vitamin K. UROLOGICAL HISTORY Most recent urological consultation was October 2015; due to the patient's castrate resistant metastatic prostate cancer, urologist recommended medical oncology evaluation at that time however Efrain had refused. He does have a history of bilateral hydroureteronephrosis along with a history of urinary retention however he has refused suprapubic catheter and has agreed for indwelling Pierce catheterization--to be changed monthly. CODE STATUS full code Update today, INR trending downward, hematuria remains however slightly improving, patient did not have a good night, had quite a bit of pain in his right arm and right elbow. Also complains of some dizziness was recently evaluated for orthostatic hypotension. IMPRESSION/PLAN Hematuria, gross, INR trending down, discontinue Coumadin. Blood pressure slightly low however no hemodynamic instability. History of DVT; right, common femoral vein, proximal deep femoral vein, proximal to more vein and popliteal veins, has been on Coumadin since September,. Undetermined provocation however patient did have prostate cancer, likely has received full benefit however risks versus benefit has been discussed with the patient will start him on aspirin upon discharge. Chronic kidney disease, stage 3/4 BUN elevated likely due to hemolysis/bleeding , baseline creatinine 2.2-2.4. Continuing to anemia status History of bilateral hydroureteronephrosis along with a history of urinary retention, indwelling Pierce catheter, due for catheter change, Dizziness, with recent recent history of orthostatic hypotension, blood pressure slightly low, since indwelling Pierce catheter no longer requiring Alpha -minh medication, discontinue both finasteride and Flomax Anemia; status post 2 units packed red blood cells--hemoglobin 9.2 with corresponding hematocrit, anisocytosis; normocytic, normochromic--likely ACD induced with reduced erythrpoietin response/synthesis--especially in patients with GFR less than 40 which he is 24. If this is the case expected to see normal to elevated ferritin, iron, with reduced TIBC. TIBC may be more valuable in this situation due to acute inflammatory state. Anemia workup-- also sedimentation rate today--will also assess for TSH level. Acute arthropathy, sedimentation rate today, begin 20 mg of prednisone daily. Added PPI Tobacco dependency, 28 mg combined nicotine patch applied SECONDARY DIAGNOSIS Hyperlipidemia Hypertension, blood pressure slightly low, discontinue alpha-minh medication History of prostate CA, no longer on Lupron. Depression, Secondary hyperparathyroidism COPD, stable. Ongoing smoker Overall plan today, start prednisone, added PPI, discontinue alpha-minh's, anemia study, discontinued Coumadin, will add aspirin on discharge
[2016-12-25] MEDS: Omeprazole 20 MG Cap.CR PO SCH (10:46)
[2016-12-25] MEDS: predniSONE 20 MG Tab PO SCH (10:46)
[2016-12-25] MEDS: cefTRIAXone 1 GM Vial IVPUSH SCH (13:46)
[2016-12-25] MEDS ORDERED: Simethicone 80 MG Tab.Chew PO PRN (23:18)
[2016-12-26] MEDS: Ondansetron 4 MG/2 ML SDV IVPUSH PRN ×5 (03:33→23:10)
[2016-12-26] MEDS: Sodium Chloride 0.9% 5 ML Syringe FLUSH PRN (03:33)
[2016-12-26] MEDS: Nicotine 7 MG/24 Hr Patch TRDERM SCH (08:00)
[2016-12-26] MEDS: Nicotine 21 MG/24 Hr Patch TRDERM SCH (08:00)
[2016-12-26] MEDS: predniSONE 20 MG Tab PO SCH (09:24)
[2016-12-26] MEDS: Sertraline 50 MG Tab PO SCH (09:25)
[2016-12-26] MEDS: Magnesium Hydroxide 400 MG/5 ML Susp 30 ML Cup PO SCH (09:25)
[2016-12-26] MEDS: Docusate Sodium 100 MG Cap PO SCH (09:25)
[2016-12-26] MEDS: Omeprazole 20 MG Cap.CR PO SCH ×2 (09:25→14:27)
--- NOTE | 2016-12-26 10:51 | PCM.PN ---
- General Info Date of Service: 12/26/16 Admission Dx/Problem (Free Text): Admission Diagnosis/Problem Admission Diagnosis/Problem Anemia due to blood loss Patient is a 76-year-old gentleman who was admitted after he emergency room evaluation secondary to gross hematuria-history of indwelling Pierce catheter. Patient has a history of anemia with prostate carcinoma and renal disease. No prior history or workup of anemia. Patient no longer takes Lupron injections for prostate carcinoma. Patient has had an indwelling Pierce catheter for greater than one year-refused suprapubic catheter. His initial hemoglobin was 7.7-thereafter received 2 units of blood transfusion upon admission. He does have a history of DVT right lower extremity-2 years ago due to edema right lower extremity-without pulmonary embolism history, he has been on Coumadin 3 mg every day. His INR was very elevated at 7 and since he did have gross hematuria he was treated with vitamin K. Urological history Most recent urology consultation October 2015-patient's resistant metastatic prostate carcinoma, urology recommended medical oncology evaluation and patient refused. He does have a history of bilateral hydroureteronephrosis along with a history of urinary retention however he has refused suprapubic catheter and therefore has indwelling Pierce catheter-changed monthly Patient was evaluated, admitted for further evaluation and treatment-also noted to have component of urinary tract infection-Enterobacter cloacae-treated with IV Rocephin-sensitive. Pierce catheter removed and due to be changed today Patient reports today: Patient reports he does not feel optimal today Very weak Increased nausea-dry heaves vomiting at different intervals-vomited multiple times while I was in the room-minimal production of clear phlegm Patient reports he has not defecated yet today although he is passing good flatus-simethicone really seem to help with the gas buildup Reports he chronically wheezes and short of breath-no acute change Denied any chest pain Abdominal pain-less marked today since he is moving gas Decreased appetite-not eating and drinking today-feels miserable Nurses report today: Pierce removed and now due to be replaced today-replaced Persistent hematuria-gross Intermittent nausea Functional Status: Reports: pain controlled, urinating (Per Pierce). Denies: tolerating diet - Review of Systems General: Reports: Weakness, Fatigue, Malaise, Appetite (Decreased significantly today-very minimal oral intake). Denies: Fever, Chills HEENT: Reports: no symptoms Pulmonary: Reports: shortness of breath (Chronic), cough (Chronic), wheezing ( Chronic) Cardiovascular: Denies: Chest Pain, Palpitations, Edema Gastrointestinal: Reports: Abdominal pain (Less marked), Constipation (Good stool yesterday but no blood stools today but passing flatus), Decreased appetite, Flatus, Nausea, Vomiting. Denies: Diarrhea, Hematochezia, Melena Genitourinary: Reports: other (Pierce catheter in place) Musculoskeletal: Reports: no symptoms Skin: Reports: no symptoms Neurological: Reports: No Symptoms Psychiatric: Reports: no symptoms - Patient Data Vitals - most recent: Last Vital Signs Temp 97.5 F 12/26/16 06:39 Pulse 97 12/26/16 06:39 Resp 20 12/26/16 06:39 BP 147/79 H 12/26/16 06:39 Pulse Ox 94 L 12/26/16 06:39 Weight - most recent: 174 lb 11.2 oz I&O - last 24 hours: Intake & Output 12/25/16 12/26/16 12/26/16 22:59 06:59 14:59 Intake Total 560 100 Output Total 25 1250 Balance 535 -1150 Med Orders - Current: Current Medications Hydrocodone Bitart/Acetaminophen ([place] 325-10 Mg) 1 tab PO Q6H PRN PRN Reason: Pain Last Admin: 12/25/16 18:48 Dose: 1 tab Ceftriaxone Sodium (Rocephin) 1 gm IVPUSH Q24H [facility] Last Admin: 12/25/16 13:46 Dose: 1 gm Docusate Sodium (Colace) 100 mg PO DAILY [facility] Last Admin: 12/26/16 09:25 Dose: Not Given Magnesium Hydroxide (Milk Of Magnesia) 30 ml PO DAILY [facility] Last Admin: 12/26/16 09:25 Dose: Not Given Nicotine (Habitrol) 7 mg TRDERM DAILY [facility] Last Admin: 12/26/16 08:00 Dose: 7 mg Nicotine (Habitrol) 21 mg TRDERM DAILY [facility] Last Admin: 12/26/16 08:00 Dose: 21 mg Omeprazole (Omeprazole) 20 mg PO DAILY [facility] Last Admin: 12/26/16 09:25 Dose: Not Given Ondansetron HCl (Zofran) 4 mg IVPUSH Q4H PRN PRN Reason: Nausea/Vomiting Last Admin: 12/26/16 08:03 Dose: 4 mg Prednisone (Prednisone) 20 mg PO WITHBREAKFAST [facility] Stop: 12/28/16 23:59 Last Admin: 12/26/16 09:24 Dose: Not Given Sertraline HCl (Zoloft) 25 mg PO DAILY [facility] Last Admin: 12/26/16 09:25 Dose: Not Given Simethicone (Simethicone) 80 mg PO QIDACANDBED PRN PRN Reason: stomach upset Last Admin: 12/26/16 07:57 Dose: 80 mg Sodium Chloride (Syrex Flush) 5 ml FLUSH Q8HR PRN PRN Reason: Keep Vein Open Last Admin: 12/26/16 03:33 Dose: 5 ml Discontinued Medications Finasteride (Proscar) 5 mg PO DAILY [facility] Last Admin: 12/25/16 08:16 Dose: 5 mg Sodium Chloride (Normal Saline) 1,000 mls @ 999 mls/hr IV .BOLUS ONE Stop: 12/23/16 13:54 Last Admin: 12/23/16 13:04 Dose: 999 mls/hr Sodium Chloride (Normal Saline) 250 mls @ 100 mls/hr IV ASDIRECTED [facility] Nicotine (Habitrol) 21 mg TRDERM ONETIME ONE Stop: 12/24/16 09:46 Last Admin: 12/24/16 10:20 Dose: 21 mg Phytonadione (Aquamephyton) 5 mg SUBCUT ONETIME ONE Stop: 12/23/16 14:51 Last Admin: 12/23/16 16:21 Dose: 5 mg Tamsulosin HCl (Flomax) 0.4 mg PO DAILY [facility] Last Admin: 12/25/16 08:15 Dose: 0.4 mg - Exam General: alert, oriented, cooperative, no acute distress, other (Audible wheezing-patient reports that his chronic secondary to his COPD history, appears much older than expected for age, very weak in general) HEENT: Pupils equal, Pupils reactive, EOMI, Mucous membr. moist/pink. No: Scleral icterus Neck: supple, trachea midline, no JVD, no thyromegaly. No: lymphadenopathy Lungs: Decreased breath sounds, Crackles, Wheezing. No: Rhonchi Cardiovascular: Regular Rate, Regular Rhythm, Murmurs (Questionable 1/6 systolic ) Abdomen: bowel sounds present, soft, no tenderness, no distension. No: rigidity , rebound, guarding, tenderness, distension, abnormal bowel sounds, organomegaly Extremities: no edema Skin: warm, dry, intact Neurological: no new focal deficit, other (Generalized increased weakness) Psy/Mental Status: alert, normal affect, normal mood - Problem List Review Problem List Initiated/Reviewed/Updated: Yes - My Orders Last 24 Hours: My Active Orders 12/25/16 23:18 Ondansetron [Zofran] 4 mg IVPUSH Q4H PRN Simethicone 80 mg PO QIDACANDBED PRN - Assessment Assessment:: Olztjzutv-[id number] Nausea/Vomiting-persistent over last about 18 hours-question extending infection versus other etiology-constipation, metabolic abnormality, etc. Hyperanticoagulation Anemia-marked secondary to blood loss and chronic disease Post blood transfusion-tolerated well Urinary tract infection-question if extending considering nausea and vomiting Chronic kidney disease-stage III Bilateral hydroureteral nephrosis Chronic urinary retention-secondary Pierce Chronic Pierce catheter Acute arthropathy-doing well-no complaints Tobacco abuse disorder Dizziness secondary to hypotension Previous history of DVT Complex medical picture Secondary diagnoses: Chronic corticosteroid therapy Hyperlipidemia Hypertension Prostate carcinoma Depression Secondary hyperparathyroidism COPD-rule out exacerbation - Plan Plan:: Reviewed present treatment regimen-continue same regimen except changes as listed below CBC, CMP, INR today CBC, BMP, INR in a.m. Add Levaquin 500 mg IV every 24 hours Dulcolax 10 mg per rectum every 24 hours as needed for constipation
[2016-12-26] MEDS ORDERED: Levofloxacin/Dextrose 5%-Water 500 MG in Premix Bag 1 BAG IV SCH (11:00)
[2016-12-26] MEDS ORDERED: Bisacodyl 10 MG Supp RECTAL PRN (11:11)
[2016-12-26] MEDS: Sodium Chloride 0.9% 1,000 ML IV SCH ×2 (11:25→22:32)
[2016-12-26 12:08] LABS: CHLORIDE,CL 106 mmol/L (98-115); SODIUM,NA 138 mmol/L (136-145)
[2016-12-26] MEDS: cefTRIAXone 1 GM Vial IVPUSH SCH (13:09)
[2016-12-27] MEDS: Ondansetron 4 MG/2 ML SDV IVPUSH PRN ×2 (06:27→18:11)
[2016-12-27] MEDS: Acetaminophen/HYDROcodone 325-10 MG Tab PO PRN ×2 (06:31→20:47)
[2016-12-27] MEDS: Sodium Chloride 0.9% 1,000 ML IV SCH (07:22)
[2016-12-27] MEDS: predniSONE 20 MG Tab PO SCH (08:10)
[2016-12-27] MEDS: Docusate Sodium 100 MG Cap PO SCH (08:10)
[2016-12-27] MEDS: Omeprazole 20 MG Cap.CR PO SCH (08:11)
[2016-12-27] MEDS: Magnesium Hydroxide 400 MG/5 ML Susp 30 ML Cup PO SCH (08:12)
[2016-12-27] MEDS: Sertraline 50 MG Tab PO SCH (08:12)
[2016-12-27] MEDS: Nicotine 7 MG/24 Hr Patch TRDERM SCH (08:13)
[2016-12-27] MEDS: Nicotine 21 MG/24 Hr Patch TRDERM SCH (08:13)
[2016-12-27 08:42] LABS: CHLORIDE,CL 106 mmol/L (98-115); SODIUM,NA 137 mmol/L (136-145)
--- NOTE | 2016-12-27 09:40 | PCM.PN ---
- General Info Date of Service: 12/27/16 Admission Dx/Problem (Free Text): Admission Diagnosis/Problem Admission Diagnosis/Problem Anemia due to blood loss Patient is a 76-year-old gentleman who was admitted after he emergency room evaluation secondary to gross hematuria-history of indwelling Pierce catheter. Patient has a history of anemia with prostate carcinoma and renal disease. No prior history or workup of anemia. Patient no longer takes Lupron injections for prostate carcinoma. Patient has had an indwelling Pierce catheter for greater than one year-refused suprapubic catheter. His initial hemoglobin was 7.7-thereafter received 2 units of blood transfusion upon admission. He does have a history of DVT right lower extremity-2 years ago due to edema right lower extremity-without pulmonary embolism history, he has been on Coumadin 3 mg every day. His INR was very elevated at 7 and since he did have gross hematuria he was treated with vitamin K. Urological history Most recent urology consultation October 2015-patient's resistant metastatic prostate carcinoma, urology recommended medical oncology evaluation and patient refused. He does have a history of bilateral hydroureteronephrosis along with a history of urinary retention however he has refused suprapubic catheter and therefore has indwelling Pierce catheter-changed monthly Patient was evaluated, admitted for further evaluation and treatment-also noted to have component of urinary tract infection-Enterobacter cloacae-treated with IV Rocephin-sensitive. Pierce catheter removed and due to be changed today On 12/26/16 patient appeared ill-nausea, vomiting, appeared more septic-getting dehydrated-started IV fluids, added IV Levaquin Patient doing quite a bit better today-responding well to IV fluids and IV antibiotics-Levaquin/Rocephin-Levaquin really seem to make the difference Patient reports today: Patient reports he feels much much better today Coughed up a little clear phlegm but no significant nausea, vomiting today No good bowel movement yet Drinking a lot of oral fluids and tolerating them well Not eating a lot but did take a piece of toast and milk for breakfast and retaining it so far Passing good flatus Nurses report today: Pierce still blood tinged but improving-less marked Complains of some right shoulder and back pain at times-chronic No other complaints of significant nausea or vomiting Infection fighting cells count/WBC yesterday was 24.8 and down to 17.2 today, hemoglobin 8.9, INR 1.3 Functional Status: Reports: pain controlled, tolerating diet (Mainly oral fluids but did tolerate some toast), ambulating (To bathroom), urinating (Per Pierce-gross hematuria but less marked) - Review of Systems General: Reports: Weakness (Persistent but less marked), Fatigue (Less marked), Appetite (Improving). Denies: Fever, Chills, Night Sweats HEENT: Reports: no symptoms Pulmonary: Reports: no symptoms, wheezing (Chronic wheezing-no acute change) Cardiovascular: Reports: No Symptoms Gastrointestinal: Reports: No symptoms, Decreased appetite (But improving), Flatus, Other (Has not passed any good stool yet). Denies: Abdominal pain, Diarrhea, Nausea, Vomiting Genitourinary: Reports: hematuria, other (Chronic Pierce) Musculoskeletal: Reports: no symptoms Neurological: Reports: No Symptoms Psychiatric: Reports: no symptoms - Patient Data Vitals - most recent: Last Vital Signs Temp 97.4 F 12/27/16 07:00 Pulse 71 12/27/16 07:00 Resp 20 12/27/16 07:00 BP 124/48 L 12/27/16 07:00 Pulse Ox 96 12/27/16 07:00 Weight - most recent: 174 lb 11.2 oz I&O - last 24 hours: Intake & Output 12/26/16 12/27/16 12/27/16 22:59 06:59 14:59 Intake Total 935 1400 Output Total 700 375 Balance 235 1025 Lab Results last 24 hrs: Laboratory Results - last 24 hr 12/26/16 12/26/16 12/26/16 Range/Units 11:23 11:23 11:59 WBC 24.8 H (5.0-10.0) 10^3/uL RBC 3.12 L (4.50-6.00) 10^6/uL Hgb 9.2 L (13.0-17.0) g/dL Hct 27.5 L (40.0-52.0) % MCV 88.3 (82.0-92.0) fL MCH 29.5 (27.0-31.0) pg MCHC 33.4 (32.0-36.0) g/dL RDW 15.5 H (11.5-14.5) % Plt Count 365 H (150-300) 10^3/uL MPV 7.8 (7.4-10.4) fL Neut % (Auto) 93.8 H (50.0-70.0) % Lymph % (Auto) 4.1 L (20.0-40.0) % [place] % (Auto) 2.0 (2.0-8.0) % Eos % (Auto) 0.1 L (1.0-3.0) % Baso % (Auto) 0.0 (0.0-1.0) % Neut # (Auto) 23.3 H (2.5-7.0) 10^3/uL Lymph # (Auto) 1.0 (1.0-4.0) 10^3/uL [place] # (Auto) 0.5 (0.1-0.8) 10^3/uL Eos # (Auto) 0.0 L (0.1-0.3) 10^3/uL Baso # (Auto) 0.0 (0.0-0.1) 10^3/uL PT TNP INR 1.6 H (0.9-1.1) Sodium 138 (136-145) mmol/L Potassium 5.6 H (3.3-5.3) mmol/L Chloride 106 (98-115) mmol/L Carbon Dioxide 21.8 (21.0-32.0) mmol/L BUN 58 H* (6-25) mg/dL Creatinine 2.91 H (0.51-1.17) mg/dL Est Cr Clr Drug Dosing TNP Estimated GFR (MDRD) 21 mL/min Glucose 116 H (70-110) mg/dL Calcium 7.9 L (8.7-10.3) mg/dL Total Bilirubin 0.3 (0.2-1.0) mg/dL AST 59 H (15-37) U/L ALT 17 (12-78) U/L Alkaline Phosphatase 820 H (46-116) IU/L Total Protein 5.5 L (6.4-8.2) g/dL Albumin 1.61 L (3.00-4.80) g/dL 12/27/16 12/27/16 12/27/16 Range/Units 07:35 07:35 07:35 WBC 17.2 H (5.0-10.0) 10^3/uL RBC 3.16 L (4.50-6.00) 10^6/uL Hgb 8.9 L (13.0-17.0) g/dL Hct 28.0 L (40.0-52.0) % MCV 88.6 (82.0-92.0) fL MCH 28.3 (27.0-31.0) pg MCHC 31.9 L (32.0-36.0) g/dL RDW 15.8 H (11.5-14.5) % Plt Count 369 H (150-300) 10^3/uL MPV 8.5 (7.4-10.4) fL Neut % (Auto) 88.1 H (50.0-70.0) % Lymph % (Auto) 7.8 L (20.0-40.0) % [place] % (Auto) 3.2 (2.0-8.0) % Eos % (Auto) 0.4 L (1.0-3.0) % Baso % (Auto) 0.5 (0.0-1.0) % Neut # (Auto) 15.1 H (2.5-7.0) 10^3/uL Lymph # (Auto) 1.3 (1.0-4.0) 10^3/uL [place] # (Auto) 0.6 (0.1-0.8) 10^3/uL Eos # (Auto) 0.1 (0.1-0.3) 10^3/uL Baso # (Auto) 0.1 (0.0-0.1) 10^3/uL PT 13.2 H INR 1.3 H (0.9-1.1) Sodium 137 (136-145) mmol/L Potassium 5.1 (3.3-5.3) mmol/L Chloride 106 (98-115) mmol/L Carbon Dioxide 21.4 (21.0-32.0) mmol/L BUN 52 H* (6-25) mg/dL Creatinine 2.83 H (0.51-1.17) mg/dL Est Cr Clr Drug Dosing TNP Estimated GFR (MDRD) 22 mL/min Glucose 92 (70-110) mg/dL Calcium 7.6 L (8.7-10.3) mg/dL Total Bilirubin (0.2-1.0) mg/dL AST (15-37) U/L ALT (12-78) U/L Alkaline Phosphatase (46-116) IU/L Total Protein (6.4-8.2) g/dL Albumin (3.00-4.80) g/dL Med Orders - Current: Current Medications Hydrocodone Bitart/Acetaminophen ([place] 325-10 Mg) 1 tab PO Q6H PRN PRN Reason: Pain Last Admin: 12/27/16 06:31 Dose: 1 tab Bisacodyl (Dulcolax) 10 mg RECTAL DAILY PRN PRN Reason: Constipation Ceftriaxone Sodium (Rocephin) 1 gm IVPUSH Q24H [facility] Last Admin: 12/26/16 13:09 Dose: 1 gm Docusate Sodium (Colace) 100 mg PO DAILY [facility] Last Admin: 12/27/16 08:10 Dose: 100 mg Sodium Chloride (Normal Saline) 1,000 mls @ 100 mls/hr IV ASDIRECTED [facility] Last Admin: 12/27/16 07:22 Dose: 100 mls/hr Levofloxacin/Dextrose 250 mg/ (Premix) 50 mls @ 50 mls/hr IV Q24H [facility] Magnesium Hydroxide (Milk Of Magnesia) 30 ml PO DAILY [facility] Last Admin: 12/27/16 08:12 Dose: Not Given Nicotine (Habitrol) 7 mg TRDERM DAILY [facility] Last Admin: 12/27/16 08:13 Dose: 7 mg Nicotine (Habitrol) 21 mg TRDERM DAILY [facility] Last Admin: 12/27/16 08:13 Dose: 21 mg Omeprazole (Omeprazole) 20 mg PO DAILY [facility] Last Admin: 12/27/16 08:11 Dose: 20 mg Ondansetron HCl (Zofran) 4 mg IVPUSH Q4H PRN PRN Reason: Nausea/Vomiting Last Admin: 12/27/16 06:27 Dose: 4 mg Prednisone (Prednisone) 20 mg PO WITHBREAKFAST [facility] Stop: 12/28/16 23:59 Last Admin: 12/27/16 08:10 Dose: 20 mg Sertraline HCl (Zoloft) 25 mg PO DAILY [facility] Last Admin: 12/27/16 08:12 Dose: 25 mg Simethicone (Simethicone) 80 mg PO QIDACANDBED PRN PRN Reason: stomach upset Last Admin: 12/26/16 07:57 Dose: 80 mg Sodium Chloride (Syrex Flush) 5 ml FLUSH Q8HR PRN PRN Reason: Keep Vein Open Last Admin: 12/26/16 03:33 Dose: 5 ml Discontinued Medications Finasteride (Proscar) 5 mg PO DAILY [facility] Last Admin: 12/25/16 08:16 Dose: 5 mg Sodium Chloride (Normal Saline) 1,000 mls @ 999 mls/hr IV .BOLUS ONE Stop: 12/23/16 13:54 Last Admin: 12/23/16 13:04 Dose: 999 mls/hr Sodium Chloride (Normal Saline) 250 mls @ 100 mls/hr IV ASDIRECTED [facility] Levofloxacin/Dextrose 500 mg/ (Premix) 100 mls @ 100 mls/hr IV Q24H [facility] Last Admin: 12/26/16 11:37 Dose: 100 mls/hr Nicotine (Habitrol) 21 mg TRDERM ONETIME ONE Stop: 12/24/16 09:46 Last Admin: 12/24/16 10:20 Dose: 21 mg Phytonadione (Aquamephyton) 5 mg SUBCUT ONETIME ONE Stop: 12/23/16 14:51 Last Admin: 12/23/16 16:21 Dose: 5 mg Tamsulosin HCl (Flomax) 0.4 mg PO DAILY [facility] Last Admin: 12/25/16 08:15 Dose: 0.4 mg - Exam General: alert, oriented, cooperative, no acute distress, other (Patient looks markedly better today-appears better hydrated, less septic or toxic, no nausea or vomiting while I was in the room) HEENT: Pupils equal, Pupils reactive, EOMI, Mucous membr. moist/pink. No: Scleral icterus Neck: supple, trachea midline, no JVD, no thyromegaly. No: lymphadenopathy Lungs: Normal respiratory effort, Decreased breath sounds, Rhonchi (Chronic at times), Wheezing (Chronic) Cardiovascular: Regular Rate, Regular Rhythm, Murmurs (1/6 systolic) Abdomen: bowel sounds present, soft, no tenderness, no distension. No: rigidity , rebound, guarding, tenderness, distension Extremities: no edema, no calf tenderness Skin: warm, dry, intact, other (Appears better hydrated overall) Neurological: no new focal deficit Psy/Mental Status: alert, normal affect, normal mood - Problem List Review Problem List Initiated/Reviewed/Updated: Yes - My Orders Last 24 Hours: My Active Orders 12/26/16 11:11 Bisacodyl [Dulcolax] 10 mg RECTAL DAILY PRN 12/26/16 11:15 Sodium Chloride 0.9% [Normal Saline] 1,000 ml IV ASDIRECTED 12/27/16 11:00 Levofloxacin/Dextrose 5%-Water [Levaquin in D5W 250 MG/50 ML] 250 mg Premix Bag 1 bag IV Q24H - Assessment Assessment:: Nenmwjwkm-gcypj-ztnoxwbtsl-but improving-less marked hematuria-lightening in the Pierce tubing/bag Nausea/Vomiting/gastroenteritis-suspect infection was extending-responding well to IV fluids and IV Levaquin Drcsasaegiwh-quetie-iaezxeh secondary to urinary tract infection and above- responding nicely to IV Levaquin Hyperanticoagulation-resolved Dehydration-clinical component from yesterday-clinically much better today Anemia-marked secondary to blood loss and chronic disease-hemoglobin 8.9-slight decrease Post blood transfusion-tolerated well Urinary tract infection-suspect extended-improving clinically now Chronic kidney disease-stage III Bilateral hydroureteral her way to nephrosis Chronic urinary retention-secondary Pierce Chronic Pierce catheter Acute arthropathy-doing well-no complaints Tobacco abuse disorder Dizziness secondary to hypotension Previous history of DVT Complex medical picture Secondary diagnoses: Chronic corticosteroid therapy Hyperlipidemia Hypertension Prostate carcinoma Depression Secondary hyperparathyroidism COPD-rule out exacerbation - Plan Plan:: Reviewed present treatment regimen-continue same regimen except changes as listed below CBC, CMP, INR in am Continue Levaquin but decrease to 250 mg IV every 24 hours Discontinue IV fluids Saline lock Continue to work on increasing by mouth fluids and food intake
[2016-12-27] MEDS ORDERED: Sodium Chloride 0.9% 5 ML Syringe FLUSH PRN (09:54)
[2016-12-27] MEDS: Levofloxacin/Dextrose 5%-Water 250 MG in Premix Bag 1 BAG IV SCH (10:22)
[2016-12-27] MEDS: cefTRIAXone 1 GM Vial IVPUSH SCH (13:30)
[2016-12-27] MEDS ORDERED: Ondansetron 4 MG/2 ML SDV IVPUSH ONE (20:39)
[2016-12-27] MEDS: Sodium Chloride 0.9% 5 ML Syringe FLUSH PRN (20:46)
[2016-12-28] MEDS: Acetaminophen/HYDROcodone 325-10 MG Tab PO PRN ×3 (02:26→20:58)
[2016-12-28] MEDS: Ondansetron 4 MG/2 ML SDV IVPUSH PRN ×2 (02:26→06:16)
[2016-12-28] MEDS: Sodium Chloride 0.9% 5 ML Syringe FLUSH PRN ×2 (02:28→06:18)
[2016-12-28 07:55] LABS: CHLORIDE,CL 106 mmol/L (98-115); SODIUM,NA 140 mmol/L (136-145)
[2016-12-28] MEDS: Nicotine 7 MG/24 Hr Patch TRDERM SCH (08:25)
[2016-12-28] MEDS: Docusate Sodium 100 MG Cap PO SCH (08:25)
[2016-12-28] MEDS: predniSONE 20 MG Tab PO SCH (08:25)
[2016-12-28] MEDS: Omeprazole 20 MG Cap.CR PO SCH (08:29)
[2016-12-28] MEDS: Nicotine 21 MG/24 Hr Patch TRDERM SCH (08:29)
[2016-12-28] MEDS: Sertraline 50 MG Tab PO SCH (08:30)
[2016-12-28] MEDS: Magnesium Hydroxide 400 MG/5 ML Susp 30 ML Cup PO SCH (08:30)
--- NOTE | 2016-12-28 11:18 | PCM.PN ---
- General Info Date of Service: 12/28/16 Functional Status: Reports: pain controlled - Review of Systems General: Reports: Weakness Pulmonary: Reports: shortness of breath, wheezing. Denies: cough Cardiovascular: Reports: Dyspnea on Exertion Gastrointestinal: Reports: No symptoms Genitourinary: Reports: hematuria. Denies: retention Musculoskeletal: Reports: no symptoms Skin: Reports: pallor Neurological: Reports: No Symptoms Psychiatric: Reports: no symptoms - Patient Data Vitals - most recent: Last Vital Signs Temp 97.2 F 12/28/16 06:47 Pulse 75 12/28/16 06:47 Resp 20 12/28/16 06:47 BP 119/61 12/28/16 06:47 Pulse Ox 95 12/28/16 06:47 Weight - most recent: 174 lb 11.2 oz I&O - last 24 hours: Intake & Output 12/27/16 12/28/16 12/28/16 22:59 06:59 14:59 Intake Total 350 150 Output Total 100 1400 Balance 250 -1250 Lab Results last 24 hrs: Laboratory Results - last 24 hr 12/28/16 12/28/16 12/28/16 Range/Units 07:10 07:10 07:10 WBC 20.9 H (5.0-10.0) 10^3/uL RBC 2.68 L (4.50-6.00) 10^6/uL Hgb 7.7 L (13.0-17.0) g/dL Hct 23.8 L (40.0-52.0) % MCV 88.9 (82.0-92.0) fL MCH 28.7 (27.0-31.0) pg MCHC 32.3 (32.0-36.0) g/dL RDW 16.3 H (11.5-14.5) % Plt Count 353 H (150-300) 10^3/uL MPV 8.0 (7.4-10.4) fL Neut % (Auto) 89.7 H (50.0-70.0) % Lymph % (Auto) 5.1 L (20.0-40.0) % [place] % (Auto) 4.3 (2.0-8.0) % Eos % (Auto) 0.5 L (1.0-3.0) % Baso % (Auto) 0.4 (0.0-1.0) % Neut # (Auto) 18.7 H (2.5-7.0) 10^3/uL Lymph # (Auto) 1.1 (1.0-4.0) 10^3/uL [place] # (Auto) 0.9 H (0.1-0.8) 10^3/uL Eos # (Auto) 0.1 (0.1-0.3) 10^3/uL Baso # (Auto) 0.1 (0.0-0.1) 10^3/uL PT 12.5 H (8.9-11.4) SEC INR 1.2 H (0.9-1.1) Sodium 140 (136-145) mmol/L Potassium 5.6 H (3.3-5.3) mmol/L Chloride 106 (98-115) mmol/L Carbon Dioxide 21.3 (21.0-32.0) mmol/L BUN 55 H* (6-25) mg/dL Creatinine 3.14 H (0.51-1.17) mg/dL Est Cr Clr Drug Dosing TNP Estimated GFR (MDRD) 19 mL/min Glucose 82 (70-110) mg/dL Calcium 7.9 L (8.7-10.3) mg/dL Total Bilirubin 0.3 (0.2-1.0) mg/dL AST 42 H (15-37) U/L ALT 16 (12-78) U/L Alkaline Phosphatase 701 H (46-116) IU/L Total Protein 5.0 L (6.4-8.2) g/dL Albumin 1.58 L (3.00-4.80) g/dL Med Orders - Current: Current Medications Hydrocodone Bitart/Acetaminophen ([place] 325-10 Mg) 1 tab PO Q6H PRN PRN Reason: Pain Last Admin: 12/28/16 02:26 Dose: 1 tab Bisacodyl (Dulcolax) 10 mg RECTAL DAILY PRN PRN Reason: Constipation Last Admin: 12/27/16 20:49 Dose: 10 mg Ceftriaxone Sodium (Rocephin) 1 gm IVPUSH Q24H ANI Last Admin: 12/27/16 13:30 Dose: 1 gm Docusate Sodium (Colace) 100 mg PO DAILY ANI Last Admin: 12/28/16 08:25 Dose: 100 mg Levofloxacin/Dextrose 250 mg/ (Premix) 50 mls @ 50 mls/hr IV Q24H [facility] Last Admin: 12/27/16 10:22 Dose: 50 mls/hr Magnesium Hydroxide (Milk Of Magnesia) 30 ml PO DAILY [facility] Last Admin: 12/28/16 08:30 Dose: 30 ml Nicotine (Habitrol) 7 mg TRDERM DAILY [facility] Last Admin: 12/28/16 08:25 Dose: 7 mg Nicotine (Habitrol) 21 mg TRDERM DAILY [facility] Last Admin: 12/28/16 08:29 Dose: 21 mg Omeprazole (Omeprazole) 20 mg PO DAILY [facility] Last Admin: 12/28/16 08:29 Dose: 20 mg Ondansetron HCl (Zofran) 4 mg IVPUSH Q4H PRN PRN Reason: Nausea/Vomiting Last Admin: 12/28/16 06:16 Dose: 4 mg Prednisone (Prednisone) 20 mg PO WITHBREAKFAST [facility] Stop: 12/28/16 23:59 Last Admin: 12/28/16 08:25 Dose: 20 mg Sertraline HCl (Zoloft) 25 mg PO DAILY [facility] Last Admin: 12/28/16 08:30 Dose: 25 mg Simethicone (Simethicone) 80 mg PO QIDACANDBED PRN PRN Reason: stomach upset Last Admin: 12/26/16 07:57 Dose: 80 mg Sodium Chloride (Syrex Flush) 5 ml FLUSH Q8HR PRN PRN Reason: Keep Vein Open Last Admin: 12/28/16 06:18 Dose: 5 ml Discontinued Medications Finasteride (Proscar) 5 mg PO DAILY [facility] Last Admin: 12/25/16 08:16 Dose: 5 mg Sodium Chloride (Normal Saline) 1,000 mls @ 999 mls/hr IV .BOLUS ONE Stop: 12/23/16 13:54 Last Admin: 12/23/16 13:04 Dose: 999 mls/hr Sodium Chloride (Normal Saline) 250 mls @ 100 mls/hr IV ASDIRECTED [facility] Levofloxacin/Dextrose 500 mg/ (Premix) 100 mls @ 100 mls/hr IV Q24H [facility] Last Admin: 12/26/16 11:37 Dose: 100 mls/hr Sodium Chloride (Normal Saline) 1,000 mls @ 100 mls/hr IV ASDIRECTED [facility] Last Admin: 12/27/16 07:22 Dose: 100 mls/hr Nicotine (Habitrol) 21 mg TRDERM ONETIME ONE Stop: 12/24/16 09:46 Last Admin: 12/24/16 10:20 Dose: 21 mg Ondansetron HCl (Zofran) 4 mg IVPUSH ONETIME ONE Stop: 12/27/16 20:40 Last Admin: 12/27/16 20:46 Dose: 4 mg Phytonadione (Aquamephyton) 5 mg SUBCUT ONETIME ONE Stop: 12/23/16 14:51 Last Admin: 12/23/16 16:21 Dose: 5 mg Sodium Chloride (Syrex Flush) 5 ml FLUSH Q8HR PRN PRN Reason: Keep Vein Open Tamsulosin HCl (Flomax) 0.4 mg PO DAILY [facility] Last Admin: 12/25/16 08:15 Dose: 0.4 mg - Exam General: alert, oriented Neck: supple Lungs: Rhonchi, Wheezing Cardiovascular: Tachycardia Abdomen: bowel sounds present, soft, no tenderness, no distension (Male) Exam: Other (Significant hematuria) Back Exam: No: CVA Tenderness (L), CVA Tenderness (R) Extremities: no edema Skin: other (bruising) Psy/Mental Status: alert, normal affect, normal mood - Problem List Review Problem List Initiated/Reviewed/Updated: Yes - My Orders Last 24 Hours: My Active Orders 12/28/16 11:07 RED BLOOD CELLS LP [BBK] Routine TYPE AND SCREEN [BBK] Routine Transfuse Red Blood Cells [COMM] Routine 12/28/16 11:08 RT Aerosol Therapy [RC] ASDIRECTED 12/28/16 17:00 Albuterol/Ipratropium [DuoNeb 3.0-0.5 MG/3 ML] 3 ml NEB Q6HRRT - Plan Plan:: IMPRESSION/PLAN Fdjzkthii-ihgyl-qbzbogpzsz, was clear a day or 2 ago now back to gross hematuria. Transfused one unit packed red blood cells today. We'll set him up for cystoscopy, no longer on Coumadin. INR 1.2. Nausea/Vomiting/gastroenteritis-suspect infection was extending-responding well to IV fluids and IV Levaquin Kjzpzgwrudov-vlussy-mkzehos secondary to urinary tract infection and above- responding nicely to IV Levaquin COPD,appears stable however he is on no medication for this, and shortness of breath today we'll start duo nebs however he will need long-term beta 2 agonist Anemia-marked secondary to blood loss and chronic disease-hemoglobin 8.9-slight decrease Urinary tract infection, likely colonization since ongoing Pierce catheter however in light of pending cystoscopy/urological procedure will continue with Levaquin Chronic kidney disease-stage 3, history of Bilateral hydroureteral, indwelling Pierce. Draining well Chronic urinary retention-secondary Pierce Acute arthropathy-doing well-no complaints Tobacco abuse disorder Dizziness secondary to hypotension Previous history of DVT Secondary diagnoses: Chronic corticosteroid therapy Hyperlipidemia Hypertension Prostate carcinoma Depression Secondary hyperparathyroidism COPD-rule out exacerbation overall plan today, start duo nebs, continue IV antibiotics his urological procedure Wednesday. Set patient up for cystoscopy. Transfuse today 1 unit monitor hemoglobin the a.m.
[2016-12-28] MEDS: Levofloxacin/Dextrose 5%-Water 250 MG in Premix Bag 1 BAG IV SCH (11:40)
[2016-12-28] MEDS: cefTRIAXone 1 GM Vial IVPUSH SCH (15:11)
[2016-12-28] MEDS: Albuterol/Ipratropium 3.0-0.5 MG/3 ML Neb Soln NEB SCH ×2 (17:25→22:08)
[2016-12-29] MEDS: Albuterol/Ipratropium 3.0-0.5 MG/3 ML Neb Soln NEB SCH ×5 (06:08→21:20)
[2016-12-29] MEDS: Ondansetron 4 MG/2 ML SDV IVPUSH PRN (06:14)
[2016-12-29 07:56] LABS: CHLORIDE,CL 108 mmol/L (98-115); SODIUM,NA 141 mmol/L (136-145)
[2016-12-29] MEDS: Nicotine 21 MG/24 Hr Patch TRDERM SCH (09:03)
[2016-12-29] MEDS: Docusate Sodium 100 MG Cap PO SCH (09:03)
[2016-12-29] MEDS: Omeprazole 20 MG Cap.CR PO SCH (09:05)
[2016-12-29] MEDS: Sertraline 50 MG Tab PO SCH (09:05)
[2016-12-29] MEDS: Magnesium Hydroxide 400 MG/5 ML Susp 30 ML Cup PO SCH (09:42)
[2016-12-29] MEDS: Acetaminophen/HYDROcodone 325-10 MG Tab PO PRN ×2 (10:12→21:22)
--- NOTE | 2016-12-29 10:45 | PCM.PN ---
- General Info Date of Service: 12/29/16 Functional Status: Reports: pain controlled, tolerating diet, ambulating, incentive spirometry, other (respiratory status he is to be improving--does have hyperkalemia today beta-2 agonist did not bring it down). Denies: new symptoms - Review of Systems General: Denies: Fever, Weakness HEENT: Reports: no symptoms Pulmonary: Denies: shortness of breath (shortness of breath usually on exertion) , wheezing Cardiovascular: Reports: Dyspnea on Exertion Gastrointestinal: Reports: No symptoms Genitourinary: Reports: no symptoms Musculoskeletal: Reports: no symptoms Skin: Reports: bruising Neurological: Reports: No Symptoms Psychiatric: Reports: no symptoms - Patient Data Vitals - most recent: Last Vital Signs Temp 97.8 F 12/29/16 06:22 Pulse 64 12/29/16 06:22 Resp 18 12/29/16 06:22 BP 157/56 H 12/29/16 06:22 Pulse Ox 96 12/29/16 06:22 Weight - most recent: 174 lb 11.2 oz I&O - last 24 hours: Intake & Output 12/28/16 12/29/16 12/29/16 22:59 06:59 14:59 Intake Total 977 75 Output Total 725 1150 Balance 252 -1075 Lab Results last 24 hrs: Laboratory Results - last 24 hr 12/28/16 12/29/16 12/29/16 Range/Units 11:40 07:15 07:15 WBC 20.4 H (5.0-10.0) 10^3/uL RBC 3.05 L (4.50-6.00) 10^6/uL Hgb 8.8 L (13.0-17.0) g/dL Hct 27.2 L (40.0-52.0) % MCV 89.1 (82.0-92.0) fL MCH 28.6 (27.0-31.0) pg MCHC 32.2 (32.0-36.0) g/dL RDW 15.6 H (11.5-14.5) % Plt Count 345 H (150-300) 10^3/uL MPV 8.3 (7.4-10.4) fL Neut % (Auto) 86.4 H (50.0-70.0) % Lymph % (Auto) 8.8 L (20.0-40.0) % [place] % (Auto) 3.7 (2.0-8.0) % Eos % (Auto) 0.3 L (1.0-3.0) % Baso % (Auto) 0.8 (0.0-1.0) % Neut # (Auto) 17.5 H (2.5-7.0) 10^3/uL Lymph # (Auto) 1.8 (1.0-4.0) 10^3/uL [place] # (Auto) 0.8 (0.1-0.8) 10^3/uL Eos # (Auto) 0.1 (0.1-0.3) 10^3/uL Baso # (Auto) 0.2 H (0.0-0.1) 10^3/uL Sodium 141 (136-145) mmol/L Potassium 6.4 H (3.3-5.3) mmol/L Chloride 108 (98-115) mmol/L Carbon Dioxide 25.2 (21.0-32.0) mmol/L BUN 52 H* (6-25) mg/dL Creatinine 3.14 H (0.51-1.17) mg/dL Est Cr Clr Drug Dosing TNP Estimated GFR (MDRD) 19 mL/min Glucose 92 (70-110) mg/dL Calcium 7.9 L (8.7-10.3) mg/dL Blood Type A POSITIVE Gel Antibody Screen Negative Crossmatch See Detail Med Orders - Current: Current Medications Hydrocodone Bitart/Acetaminophen ([place] 325-10 Mg) 1 tab PO Q6H PRN PRN Reason: Pain Last Admin: 12/29/16 10:12 Dose: 1 tab Albuterol/Ipratropium (Duoneb 3.0-0.5 Mg/3 Ml) 3 ml NEB Q6HRRT ANI Last Admin: 12/29/16 06:08 Dose: 3 ml Bisacodyl (Dulcolax) 10 mg RECTAL DAILY PRN PRN Reason: Constipation Last Admin: 12/27/16 20:49 Dose: 10 mg Ceftriaxone Sodium (Rocephin) 1 gm IVPUSH Q24H ANI Last Admin: 12/28/16 15:11 Dose: 1 gm Docusate Sodium (Colace) 100 mg PO DAILY ANI Last Admin: 12/29/16 09:03 Dose: 100 mg Levofloxacin/Dextrose 250 mg/ (Premix) 50 mls @ 50 mls/hr IV Q24H [facility] Last Admin: 12/28/16 11:40 Dose: 50 mls/hr Lactated Ringer's (Ringers, Lactated) 1,000 mls @ 50 mls/hr IV ASDIRECTED [facility] Magnesium Hydroxide (Milk Of Magnesia) 30 ml PO DAILY [facility] Last Admin: 12/29/16 09:42 Dose: Not Given Nicotine (Habitrol) 21 mg TRDERM DAILY [facility] [place] Last Admin: 12/29/16 09:03 Dose: 21 mg Omeprazole (Omeprazole) 20 mg PO DAILY [facility] [place] Last Admin: 12/29/16 09:05 Dose: 20 mg Ondansetron HCl (Zofran) 4 mg IVPUSH Q4H PRN PRN Reason: Nausea/Vomiting Last Admin: 12/29/16 06:14 Dose: 4 mg Sertraline HCl (Zoloft) 25 mg PO DAILY [facility] Last Admin: 12/29/16 09:05 Dose: 25 mg Simethicone (Simethicone) 80 mg PO QIDACANDBED PRN PRN Reason: stomach upset Last Admin: 12/26/16 07:57 Dose: 80 mg Sodium Chloride (Syrex Flush) 5 ml FLUSH Q8HR PRN PRN Reason: Keep Vein Open Last Admin: 12/28/16 06:18 Dose: 5 ml Sodium Polystyrene Sulfonate (Kayexalate) 15 gm PO Q6H [facility] Stop: 12/29/16 23:59 Discontinued Medications Finasteride (Proscar) 5 mg PO DAILY [facility] Last Admin: 12/25/16 08:16 Dose: 5 mg Sodium Chloride (Normal Saline) 1,000 mls @ 999 mls/hr IV .BOLUS ONE Stop: 12/23/16 13:54 Last Admin: 12/23/16 13:04 Dose: 999 mls/hr Sodium Chloride (Normal Saline) 250 mls @ 100 mls/hr IV ASDIRECTED [facility] [place] Levofloxacin/Dextrose 500 mg/ (Premix) 100 mls @ 100 mls/hr IV Q24H [facility] [place] Last Admin: 12/26/16 11:37 Dose: 100 mls/hr Sodium Chloride (Normal Saline) 1,000 mls @ 100 mls/hr IV ASDIRECTED [facility] [place] Last Admin: 12/27/16 07:22 Dose: 100 mls/hr Nicotine (Habitrol) 21 mg TRDERM ONETIME ONE Stop: 12/24/16 09:46 Last Admin: 12/24/16 10:20 Dose: 21 mg Nicotine (Habitrol) 7 mg TRDERM DAILY [facility] Last Admin: 12/28/16 08:25 Dose: 7 mg Ondansetron HCl (Zofran) 4 mg IVPUSH ONETIME ONE Stop: 12/27/16 20:40 Last Admin: 12/27/16 20:46 Dose: 4 mg Phytonadione (Aquamephyton) 5 mg SUBCUT ONETIME ONE Stop: 12/23/16 14:51 Last Admin: 12/23/16 16:21 Dose: 5 mg Prednisone (Prednisone) 20 mg PO WITHBREAKFAST [facility] Stop: 12/28/16 23:59 Last Admin: 12/28/16 08:25 Dose: 20 mg Sodium Chloride (Syrex Flush) 5 ml FLUSH Q8HR PRN PRN Reason: Keep Vein Open Tamsulosin HCl (Flomax) 0.4 mg PO DAILY [facility] [place] Last Admin: 12/25/16 08:15 Dose: 0.4 mg - Exam Quality Assessment: No: supplemental oxygen General: alert, oriented Neck: supple Lungs: Rhonchi Cardiovascular: Regular Rate, Regular Rhythm Abdomen: bowel sounds present, soft, no tenderness, other Back Exam: No: CVA Tenderness (L), CVA Tenderness (R) (low bowel tones) Extremities: normal pulses Neurological: no new focal deficit Psy/Mental Status: alert, normal affect, normal mood - Problem List Review Problem List Initiated/Reviewed/Updated: Yes - My Orders Last 24 Hours: My Active Orders 12/28/16 11:07 Transfuse Red Blood Cells [COMM] Routine 12/28/16 11:08 RT Aerosol Therapy [RC] ASDIRECTED 12/28/16 17:00 Albuterol/Ipratropium [DuoNeb 3.0-0.5 MG/3 ML] 3 ml NEB Q6HRRT 12/29/16 08:58 CXR [Chest 2V] [CR] Routine 12/29/16 09:01 EKG Documentation Completion [RC] ASDIRECTED 12/29/16 10:30 Sodium Polystyrene Sulfonate [Kayexalate] 15 gm PO Q6H - Plan Plan:: update day today, potassium increasing, mild constipation, received one unit packed red blood cells yesterday, hemoglobin responded appropriately--however ongoing hematuria. hemodynamically stable, placed on duo nebs yesterday, stopped Coumadin a few days ago, BUN 52 creatinine critical at 3.14--critical GFR of 19. continue with Rocephin however discontinue levofloxacin, stop milk of magnesia do to renal indices IMPRESSION/PLAN hyperkalemia, telemetry, EKG with sinus arrhythmia, Kayexalate every 8 hours today. continue with duo nebs however schedule him every 4 to help with this. change from LR to normal saline Btinxalwq-otxsm-yflrwqajec, was clear a day or 2 ago now back to gross hematuria. Transfused one unit packed red blood cells today. We'll set him up for cystoscopy, no longer on Coumadin. INR 1.2. Yicxeewxyxgn-algcfh-zvqrrpu secondary to urinary tract infection and above--on Rocephin, discontinue levofloxacin COPD,appears stable however he is on no medication for this, and shortness of breath today we'll start duo nebs however he will need long-term beta 2 agonist Anemia-marked secondary to blood loss and chronic disease-hemoglobin improved. Urinary tract infection, likely colonization since ongoing Pierce catheter however in light of pending cystoscopy/urological procedure will continue with Levaquin Chronic kidney disease-stage 3, history of Bilateral hydroureteral, indwelling Pierce. Draining well Chronic urinary retention-secondary Pierce Acute arthropathy-doing well-no complaints Tobacco abuse disorder Dizziness secondary to hypotension Previous history of DVT Secondary diagnoses: Chronic corticosteroid therapy Hyperlipidemia Hypertension Prostate carcinoma Depression Secondary hyperparathyroidism COPD-rule out exacerbation overall plan today, placed on duo nebs yesterday, stopped Coumadin a few days ago, BUN 52 creatinine critical at 3.14--critical GFR of 19. continue with Rocephin however discontinue levofloxacin, stop milk of magnesia due to renal indices--pharmacy consultation to review all medications for potential nephrotoxic complications. continue with duo nebs as this will help to bring down potassium. gentle IV fluids today. cystoscopy tomorrow if we can get potassium under control with Kayexalate. changed from lactated Ringer to normal saline today. place on telemetry, assess potassium again tonight and tomorrow morning. add low potassium diet however n.p.o. tonight for possible cystoscopy tomorrow
[2016-12-29] MEDS: Sodium Chloride 0.9% 1,000 ML IV SCH (10:55)
[2016-12-29] MEDS: Sodium Polystyrene Sulfonate 15 GM/60 ML Susp 60 ML Bot PO SCH ×3 (11:18→21:30)
[2016-12-29] MEDS: cefTRIAXone 1 GM Vial IVPUSH SCH (13:29)
[2016-12-30] MEDS: Sodium Chloride 0.9% 1,000 ML IV SCH ×2 (00:23→16:26)
[2016-12-30] MEDS: Albuterol/Ipratropium 3.0-0.5 MG/3 ML Neb Soln NEB SCH ×6 (03:00→21:37)
[2016-12-30] MEDS ORDERED: Lidocaine 2% Jelly 5 ML Tube ONE (07:36)
[2016-12-30] MEDS ORDERED: fentaNYL 100 MCG/2 ML SDV ONE (07:44)
[2016-12-30] MEDS ORDERED: Midazolam 1 MG/ML 2 ML SDV ONE (07:44)
[2016-12-30] MEDS ORDERED: Ketamine 500 mg/10 ML MDV ONE (07:44)
[2016-12-30] MEDS ORDERED: Propofol 200 MG/20 ML SDV ONE ×2 (07:45→08:14)
[2016-12-30] MEDS ORDERED: Lactated Ringers 1,000 ML IV SCH ×2 (08:00→08:15)
[2016-12-30 08:01] LABS: CHLORIDE,CL 110 mmol/L (98-115); SODIUM,NA 144 mmol/L (136-145)
[2016-12-30] MEDS ORDERED: Albuterol/Ipratropium 3.0-0.5 MG/3 ML Neb Soln NEB ONE (08:14)
[2016-12-30] MEDS ORDERED: fentaNYL 100 MCG/2 ML SDV IV ONE (08:48)
[2016-12-30] MEDS ORDERED: Ketamine 500 mg/10 ML MDV IV ONE (08:48)
[2016-12-30] MEDS ORDERED: Propofol 200 MG/20 ML SDV IV ONE (08:48)
[2016-12-30] MEDS ORDERED: Midazolam 1 MG/ML 2 ML SDV IV ONE (08:48)
[2016-12-30] MEDS ORDERED: Lidocaine 2% Jelly 10 ML Urojet ONE (09:05)
--- NOTE | 2016-12-30 09:24 | PCM.PN ---
- General Info Date of Service: 12/30/16 Functional Status: Reports: pain controlled. Denies: tolerating diet (NPO prior to cystoscopy) - Review of Systems General: Denies: Fever, Weakness, Fatigue Pulmonary: Reports: no symptoms Cardiovascular: Reports: No Symptoms Gastrointestinal: Reports: No symptoms Genitourinary: Reports: other (Gross hematuria a Pierce indwelling) Musculoskeletal: Reports: no symptoms Skin: Reports: bruising, other (Skin tear, right posterior forearm) Psychiatric: Reports: no symptoms - Patient Data Vitals - most recent: Last Vital Signs Temp 99 F 12/30/16 06:16 Pulse 80 12/30/16 06:28 Resp 18 12/30/16 06:16 BP 153/70 H 12/30/16 06:16 Pulse Ox 97 12/30/16 08:21 Weight - most recent: 174 lb 11.2 oz I&O - last 24 hours: Intake & Output 12/29/16 12/30/16 12/30/16 22:59 06:59 14:59 Intake Total 1607 598 Output Total 900 1200 Balance 707 -602 Lab Results last 24 hrs: Laboratory Results - last 24 hr 12/29/16 12/30/16 12/30/16 Range/Units 15:55 07:35 07:35 WBC (5.0-10.0) 10^3/uL RBC (4.50-6.00) 10^6/uL Hgb (13.0-17.0) g/dL Hct (40.0-52.0) % MCV (82.0-92.0) fL MCH (27.0-31.0) pg MCHC (32.0-36.0) g/dL RDW (11.5-14.5) % Plt Count (150-300) 10^3/uL MPV (7.4-10.4) fL Neut % (Auto) (50.0-70.0) % Lymph % (Auto) (20.0-40.0) % [place] % (Auto) (2.0-8.0) % Eos % (Auto) (1.0-3.0) % Baso % (Auto) (0.0-1.0) % Neut # (Auto) (2.5-7.0) 10^3/uL Lymph # (Auto) (1.0-4.0) 10^3/uL [place] # (Auto) (0.1-0.8) 10^3/uL Eos # (Auto) (0.1-0.3) 10^3/uL Baso # (Auto) (0.0-0.1) 10^3/uL PT 11.6 H (8.9-11.4) SEC INR 1.1 (0.9-1.1) Sodium 144 (136-145) mmol/L Potassium 5.7 H 4.8 (3.3-5.3) mmol/L Chloride 110 (98-115) mmol/L Carbon Dioxide 23.1 (21.0-32.0) mmol/L BUN 47 H (6-25) mg/dL Creatinine 2.81 H (0.51-1.17) mg/dL Est Cr Clr Drug Dosing TNP Estimated GFR (MDRD) 22 mL/min Glucose 86 (70-110) mg/dL Calcium 7.1 L (8.7-10.3) mg/dL 12/30/16 Range/Units 07:35 WBC 18.1 H (5.0-10.0) 10^3/uL RBC 2.87 L (4.50-6.00) 10^6/uL Hgb 8.4 L (13.0-17.0) g/dL Hct 25.3 L (40.0-52.0) % MCV 88.2 (82.0-92.0) fL MCH 29.3 (27.0-31.0) pg MCHC 33.2 (32.0-36.0) g/dL RDW 15.6 H (11.5-14.5) % Plt Count 320 H (150-300) 10^3/uL MPV 7.0 L (7.4-10.4) fL Neut % (Auto) 83.5 H (50.0-70.0) % Lymph % (Auto) 9.5 L (20.0-40.0) % [place] % (Auto) 5.8 (2.0-8.0) % Eos % (Auto) 0.9 L (1.0-3.0) % Baso % (Auto) 0.3 (0.0-1.0) % Neut # (Auto) 15.1 H (2.5-7.0) 10^3/uL Lymph # (Auto) 1.7 (1.0-4.0) 10^3/uL [place] # (Auto) 1.0 H (0.1-0.8) 10^3/uL Eos # (Auto) 0.2 (0.1-0.3) 10^3/uL Baso # (Auto) 0.1 (0.0-0.1) 10^3/uL PT (8.9-11.4) SEC INR (0.9-1.1) Sodium (136-145) mmol/L Potassium (3.3-5.3) mmol/L Chloride (98-115) mmol/L Carbon Dioxide (21.0-32.0) mmol/L BUN (6-25) mg/dL Creatinine (0.51-1.17) mg/dL Est Cr Clr Drug Dosing Estimated GFR (MDRD) mL/min Glucose (70-110) mg/dL Calcium (8.7-10.3) mg/dL Med Orders - Current: Current Medications Hydrocodone Bitart/Acetaminophen ([place] 325-10 Mg) 1 tab PO Q6H PRN PRN Reason: Pain Last Admin: 12/29/16 21:22 Dose: 1 tab Albuterol/Ipratropium (Duoneb 3.0-0.5 Mg/3 Ml) 3 ml NEB Q4HRRT [facility] Last Admin: 12/30/16 08:18 Dose: 3 ml Bisacodyl (Dulcolax) 10 mg RECTAL DAILY PRN PRN Reason: Constipation Last Admin: 12/27/16 20:49 Dose: 10 mg Ceftriaxone Sodium (Rocephin) 1 gm IVPUSH Q24H [facility] Last Admin: 12/29/16 13:29 Dose: 1 gm Docusate Sodium (Colace) 100 mg PO DAILY [facility] Last Admin: 12/29/16 09:03 Dose: 100 mg Sodium Chloride (Normal Saline) 1,000 mls @ 75 mls/hr IV ASDIRECTED [facility] Last Admin: 12/30/16 00:23 Dose: 75 mls/hr Lactated Ringer's (Ringers, Lactated) 1,000 mls @ 50 mls/hr IV ASDIRECTED [facility] Nicotine (Habitrol) 21 mg TRDERM DAILY [facility] Last Admin: 12/29/16 09:03 Dose: 21 mg Omeprazole (Omeprazole) 20 mg PO DAILY [facility] Last Admin: 12/29/16 09:05 Dose: 20 mg Ondansetron HCl (Zofran) 4 mg IVPUSH Q4H PRN PRN Reason: Nausea/Vomiting Last Admin: 12/29/16 06:14 Dose: 4 mg Sertraline HCl (Zoloft) 25 mg PO DAILY [facility] Last Admin: 12/29/16 09:05 Dose: 25 mg Simethicone (Simethicone) 80 mg PO QIDACANDBED PRN PRN Reason: stomach upset Last Admin: 12/26/16 07:57 Dose: 80 mg Sodium Chloride (Syrex Flush) 5 ml FLUSH Q8HR PRN PRN Reason: Keep Vein Open Last Admin: 12/28/16 06:18 Dose: 5 ml Discontinued Medications Albuterol/Ipratropium (Duoneb 3.0-0.5 Mg/3 Ml) 3 ml NEB Q6HRRT [facility] Last Admin: 12/29/16 11:19 Dose: 3 ml Albuterol/Ipratropium (Duoneb 3.0-0.5 Mg/3 Ml) 3 ml NEB ONETIME ONE Stop: 12/30/16 08:15 Fentanyl (Sublimaze) Confirm Administered Dose 100 mcg .ROUTE .STK-MED ONE Stop: 12/30/16 07:45 Finasteride (Proscar) 5 mg PO DAILY [facility] Last Admin: 12/25/16 08:16 Dose: 5 mg Sodium Chloride (Normal Saline) 1,000 mls @ 999 mls/hr IV .BOLUS ONE Stop: 12/23/16 13:54 Last Admin: 12/23/16 13:04 Dose: 999 mls/hr Sodium Chloride (Normal Saline) 250 mls @ 100 mls/hr IV ASDIRECTED [facility] Levofloxacin/Dextrose 500 mg/ (Premix) 100 mls @ 100 mls/hr IV Q24H [facility] Last Admin: 12/26/16 11:37 Dose: 100 mls/hr Sodium Chloride (Normal Saline) 1,000 mls @ 100 mls/hr IV ASDIRECTED [facility] Last Admin: 12/27/16 07:22 Dose: 100 mls/hr Levofloxacin/Dextrose 250 mg/ (Premix) 50 mls @ 50 mls/hr IV Q24H [facility] Last Admin: 12/28/16 11:40 Dose: 50 mls/hr Lactated Ringer's (Ringers, Lactated) 1,000 mls @ 50 mls/hr IV ASDIRECTED [facility] Ketamine HCl (Ketalar) Confirm Administered Dose 500 mg .ROUTE .STK-MED ONE Stop: 12/30/16 07:45 Lidocaine HCl (Xylocaine 2% Jelly) Confirm Administered Dose 5 ml .ROUTE .STK- MED ONE Stop: 12/30/16 07:37 Magnesium Hydroxide (Milk Of Magnesia) 30 ml PO DAILY [facility] Last Admin: 12/29/16 09:42 Dose: Not Given Midazolam HCl (Versed 1 Mg/Ml) Confirm Administered Dose 2 mg .ROUTE .STK-MED ONE Stop: 12/30/16 07:45 Nicotine (Habitrol) 21 mg TRDERM ONETIME ONE Stop: 12/24/16 09:46 Last Admin: 12/24/16 10:20 Dose: 21 mg Nicotine (Habitrol) 7 mg TRDERM DAILY [facility] Last Admin: 12/28/16 08:25 Dose: 7 mg Ondansetron HCl (Zofran) 4 mg IVPUSH ONETIME ONE Stop: 12/27/16 20:40 Last Admin: 12/27/16 20:46 Dose: 4 mg Phytonadione (Aquamephyton) 5 mg SUBCUT ONETIME ONE Stop: 12/23/16 14:51 Last Admin: 12/23/16 16:21 Dose: 5 mg Prednisone (Prednisone) 20 mg PO WITHBREAKFAST [facility] Stop: 12/28/16 23:59 Last Admin: 12/28/16 08:25 Dose: 20 mg Propofol (Diprivan 20 Ml) Confirm Administered Dose 200 mg .ROUTE .STK-MED ONE Stop: 12/30/16 07:46 Propofol (Diprivan 20 Ml) Confirm Administered Dose 200 mg .ROUTE .STK-MED ONE Stop: 12/30/16 08:15 Sodium Chloride (Syrex Flush) 5 ml FLUSH Q8HR PRN PRN Reason: Keep Vein Open Sodium Polystyrene Sulfonate (Kayexalate) 15 gm PO Q6H [facility] Stop: 12/29/16 23:59 Last Admin: 12/29/16 21:30 Dose: 15 gm Tamsulosin HCl (Flomax) 0.4 mg PO DAILY [facility] Last Admin: 12/25/16 08:15 Dose: 0.4 mg - Exam Quality Assessment: supplemental oxygen General: alert, oriented Neck: supple Lungs: Rhonchi. No: Wheezing Cardiovascular: Regular Rate, Regular Rhythm (Male) Exam: Other (Indwelling Pierce catheter) Skin: other (Mild skin tear right forearm, posterior, covered with OpSite) Wound/Incisions: drainage (Skin tear right forearm, ) Psy/Mental Status: alert, normal affect, normal mood - Problem List Review Problem List Initiated/Reviewed/Updated: Yes - My Orders Last 24 Hours: My Active Orders 12/29/16 09:01 EKG Documentation Completion [RC] ASDIRECTED 12/29/16 10:30 Telemetry Monitoring [Cardiac Monitoring] [RC] . DIRECTED 12/29/16 10:45 Sodium Chloride 0.9% [Normal Saline] 1,000 ml IV ASDIRECTED 12/29/16 13:00 Albuterol/Ipratropium [DuoNeb 3.0-0.5 MG/3 ML] 3 ml NEB Q4HRRT 12/29/16 Lunch Potassium [DIET] - Plan Plan:: update day today, potassium now normal, BUN creatinine trending downward, remains on Rocephin, NPO pending cystoscopy today IMPRESSION/PLAN Hyperkalemia, now normalized, telemetry, changed to daily Kayexalate continue with duo nebs, Fcecujrqz-hodnp-wijyxnjepk, recent blood transfusion, cystoscopy today. INR 1.1--no longer on Coumadin Stxatqeiqiev-ppvzbz-khlpsbk secondary to urinary tract infection and above--on Rocephin, this is improving COPD,appears stable however he was on no home beta-2 agonist. Started on duo nebs here. will need long-term beta 2 agonist--likely Symbicort Anemia-marked secondary to blood loss and chronic disease-hemoglobin improved. Urinary tract infection, likely colonization since ongoing Pierce catheter however in light of pending cystoscopy/urological procedure will continue with Rocephin. Chronic kidney disease-stage 3, renal indices pending, avoid nephrotoxins agents if possible history of Bilateral hydroureteral, indwelling Pierce. Draining well Chronic urinary retention-secondary Pierce--removed alpha blockers Acute arthropathy-doing well-no complaints Tobacco abuse disorder--decrease nicotine to 21 mg patch Dizziness secondary to hypotension--this has improved Previous history of DVT Secondary diagnoses: Chronic corticosteroid therapy Hyperlipidemia Hypertension Prostate carcinoma Depression Secondary hyperparathyroidism COPD-rule out exacerbation overall plan today, keep n.p.o. until cystoscopy. Cystoscopy today.
--- NOTE | 2016-12-30 09:38 | PCM.OPNOTE ---
- General Post-Op/Procedure Note Date of Surgery/Procedure: 12/30/16 Operative Procedure(s): Cystoscopy and cauterization of bladder neck bleeders. Findings: This patient is found to have hematuria. Multiple bleeders were recognized on the bladder neck. These were cauterized for extension. A new Pierce catheter was placed. Anesthesia Technique: MAC Primary Surgeon: Gianfranco Cabrera Complications: None Condition: Good Free Text/Narrative:: preoperative diagnosis: Hematuria Postoperative diagnosis: hematuria do to bleeding from the bladder neck and prostate. Intake & Output Procedure performed: Cystoscopy and cauterization of bladder neck and prostate bleeders. 12/29/16 12/30/16 12/30/16 22:59 06:59 14:59 Intake Total 1607 598 Output Total 900 1200 Balance 707 -602 informed consent was obtained the patient regarding this procedure. All possible complications were thoroughly discussed with the patient. He was taken to the operative room and wrist in the supine position. A satisfactory anesthetic was administered by the sand system operator. He was then kept in the lithotomy position. His genitals were thoroughly prepped and draped in the usual fashion. Rectal exam which was first of all performed. This showed a highly irregular prostate discussion the left lateral lobe. This was distinct of prostate carcinoma. This area was somewhat fixed. After that introduced a Zeiss cystoscope over a 21 [place] obturator sheath. There were many bleeders at the bladder neck and prostate. The scope was introduced the bladder. the rest of the bladder was essentially normal. The bleeders of the bladder neck and prostate were cauterized. The bladder was irrigated. A 14 [place] Pierce catheter was placed. The patient tolerated the procedure with no complications. He was transferred to the recover room in an excellent condition..
[2016-12-30] MEDS: Docusate Sodium 100 MG Cap PO SCH (10:34)
[2016-12-30] MEDS: Nicotine 21 MG/24 Hr Patch TRDERM SCH (10:34)
[2016-12-30] MEDS: Omeprazole 20 MG Cap.CR PO SCH (10:35)
[2016-12-30] MEDS: Sertraline 50 MG Tab PO SCH (10:35)
[2016-12-30] MEDS: cefTRIAXone 1 GM Vial IVPUSH SCH (12:51)
[2016-12-30] MEDS: Acetaminophen/HYDROcodone 325-10 MG Tab PO PRN (12:51)
[2016-12-30] MEDS: Sodium Chloride 0.9% 5 ML Syringe FLUSH PRN (12:53)
[2016-12-31] MEDS: Acetaminophen/HYDROcodone 325-10 MG Tab PO PRN (00:05)
[2016-12-31] MEDS: Albuterol/Ipratropium 3.0-0.5 MG/3 ML Neb Soln NEB SCH ×3 (01:09→09:09)
[2016-12-31] MEDS: Sodium Chloride 0.9% 1,000 ML IV SCH (05:27)
[2016-12-31] MEDS: Docusate Sodium 100 MG Cap PO SCH (09:09)
[2016-12-31] MEDS: Nicotine 21 MG/24 Hr Patch TRDERM SCH (09:09)
[2016-12-31] MEDS: Omeprazole 20 MG Cap.CR PO SCH (09:10)
[2016-12-31] MEDS: Sertraline 50 MG Tab PO SCH (09:10)
[2016-12-31] MEDS ORDERED: SODIUM CHLORIDE 0.9% IV ONE (09:24)
[2016-12-31] MEDS ORDERED: AMINOCAPROIC ACID IV ONE (09:24)
[2016-12-31] MEDS ORDERED: Albuterol/Ipratropium 3.0-0.5 MG/3 ML Neb Soln NEB PRN (09:36)
--- NOTE | 2016-12-31 09:45 | PCM.PN ---
- General Info Date of Service: 12/31/16 Functional Status: Denies: pain controlled (pain today right arm extending into her right elbow and shoulder) - Review of Systems General: Reports: Weakness HEENT: Reports: post nasal drip, sore throat. Denies: headaches, rhinitis Pulmonary: Reports: cough, sputum Cardiovascular: Reports: Dyspnea on Exertion Gastrointestinal: Reports: No symptoms Genitourinary: Reports: hematuria Skin: Reports: bruising Neurological: Reports: No Symptoms Psychiatric: Reports: no symptoms - Patient Data Vitals - most recent: Last Vital Signs Temp 98.9 F 12/31/16 06:24 Pulse 89 12/31/16 06:24 Resp 20 12/31/16 06:24 BP 129/64 12/31/16 06:24 Pulse Ox 97 12/31/16 06:24 Weight - most recent: 174 lb 11.2 oz I&O - last 24 hours: Intake & Output 12/30/16 12/31/16 12/31/16 22:59 06:59 14:59 Intake Total 1477 900 Output Total 900 1350 Balance 577 -450 Lab Results last 24 hrs: Laboratory Results - last 24 hr 12/31/16 Range/Units 07:10 WBC 20.0 H (5.0-10.0) 10^3/uL RBC 2.81 L (4.50-6.00) 10^6/uL Hgb 8.2 L (13.0-17.0) g/dL Hct 24.7 L (40.0-52.0) % MCV 88.2 (82.0-92.0) fL MCH 29.1 (27.0-31.0) pg MCHC 33.0 (32.0-36.0) g/dL RDW 15.2 H (11.5-14.5) % Plt Count 296 (150-300) 10^3/uL MPV 7.7 (7.4-10.4) fL Neut % (Auto) 85.9 H (50.0-70.0) % Lymph % (Auto) 8.4 L (20.0-40.0) % [place] % (Auto) 4.0 (2.0-8.0) % Eos % (Auto) 1.4 (1.0-3.0) % Baso % (Auto) 0.3 (0.0-1.0) % Neut # (Auto) 17.1 H (2.5-7.0) 10^3/uL Lymph # (Auto) 1.7 (1.0-4.0) 10^3/uL [place] # (Auto) 0.8 (0.1-0.8) 10^3/uL Eos # (Auto) 0.3 (0.1-0.3) 10^3/uL Baso # (Auto) 0.1 (0.0-0.1) 10^3/uL Med Orders - Current: Current Medications Hydrocodone Bitart/Acetaminophen ([place] 325-10 Mg) 1 tab PO Q6H PRN PRN Reason: Pain Last Admin: 12/31/16 00:05 Dose: 1 tab Albuterol/Ipratropium (Duoneb 3.0-0.5 Mg/3 Ml) 3 ml NEB Q4HRRT [facility] Last Admin: 12/31/16 09:09 Dose: Not Given Bisacodyl (Dulcolax) 10 mg RECTAL DAILY PRN PRN Reason: Constipation Last Admin: 12/27/16 20:49 Dose: 10 mg Ceftriaxone Sodium (Rocephin) 1 gm IVPUSH Q24H [facility] Last Admin: 12/30/16 12:51 Dose: 1 gm Docusate Sodium (Colace) 100 mg PO DAILY [facility] Last Admin: 12/31/16 09:09 Dose: 100 mg Sodium Chloride (Normal Saline) 1,000 mls @ 75 mls/hr IV ASDIRECTED [facility] Last Admin: 12/31/16 05:27 Dose: 75 mls/hr Aminocaproic Acid 5 gm/ Sodium (Chloride) 270 mls @ 250 mls/hr IV ONETIME ONE Stop: 12/31/16 10:28 Nicotine (Habitrol) 21 mg TRDERM DAILY [facility] Last Admin: 12/31/16 09:09 Dose: 21 mg Omeprazole (Omeprazole) 20 mg PO DAILY [facility] Last Admin: 12/31/16 09:10 Dose: 20 mg Ondansetron HCl (Zofran) 4 mg IVPUSH Q4H PRN PRN Reason: Nausea/Vomiting Last Admin: 12/29/16 06:14 Dose: 4 mg Sertraline HCl (Zoloft) 25 mg PO DAILY [facility] Last Admin: 12/31/16 09:10 Dose: 25 mg Simethicone (Simethicone) 80 mg PO QIDACANDBED PRN PRN Reason: stomach upset Last Admin: 12/26/16 07:57 Dose: 80 mg Sodium Chloride (Syrex Flush) 5 ml FLUSH Q8HR PRN PRN Reason: Keep Vein Open Last Admin: 12/30/16 12:53 Dose: 5 ml Discontinued Medications Albuterol/Ipratropium (Duoneb 3.0-0.5 Mg/3 Ml) 3 ml NEB Q6HRRT [facility] Last Admin: 12/29/16 11:19 Dose: 3 ml Albuterol/Ipratropium (Duoneb 3.0-0.5 Mg/3 Ml) 3 ml NEB ONETIME ONE Stop: 12/30/16 08:15 Last Admin: 12/30/16 09:58 Dose: Not Given Fentanyl (Sublimaze) Confirm Administered Dose 100 mcg .ROUTE .STK-MED ONE Stop: 12/30/16 07:45 Last Admin: 12/30/16 09:56 Dose: Not Given Fentanyl (Sublimaze) 100 mcg IV .STK-MED ONE Stop: 12/30/16 08:49 Finasteride (Proscar) 5 mg PO DAILY [facility] Last Admin: 12/25/16 08:16 Dose: 5 mg Sodium Chloride (Normal Saline) 1,000 mls @ 999 mls/hr IV .BOLUS ONE Stop: 12/23/16 13:54 Last Admin: 12/23/16 13:04 Dose: 999 mls/hr Sodium Chloride (Normal Saline) 250 mls @ 100 mls/hr IV ASDIRECTED [facility] Levofloxacin/Dextrose 500 mg/ (Premix) 100 mls @ 100 mls/hr IV Q24H [facility] Last Admin: 12/26/16 11:37 Dose: 100 mls/hr Sodium Chloride (Normal Saline) 1,000 mls @ 100 mls/hr IV ASDIRECTED [facility] Last Admin: 12/27/16 07:22 Dose: 100 mls/hr Levofloxacin/Dextrose 250 mg/ (Premix) 50 mls @ 50 mls/hr IV Q24H [facility] Last Admin: 12/28/16 11:40 Dose: 50 mls/hr Lactated Ringer's (Ringers, Lactated) 1,000 mls @ 50 mls/hr IV ASDIRECTED [facility] Lactated Ringer's (Ringers, Lactated) 1,000 mls @ 50 mls/hr IV ASDIRECTED [facility] Last Admin: 12/30/16 08:20 Dose: 50 mls/hr Ketamine HCl (Ketalar) Confirm Administered Dose 500 mg .ROUTE .STK-MED ONE Stop: 12/30/16 07:45 Last Admin: 12/30/16 09:56 Dose: Not Given Ketamine HCl (Ketalar) 25 mg IV .STK-MED ONE Stop: 12/30/16 08:49 Lidocaine HCl (Xylocaine 2% Jelly) Confirm Administered Dose 5 ml .ROUTE .STK- MED ONE Stop: 12/30/16 07:37 Last Admin: 12/30/16 09:56 Dose: Not Given Lidocaine HCl (Xylocaine 2% Jelly) 5 ml .XX .STK-MED ONE Stop: 12/30/16 09:06 Last Admin: 12/30/16 09:05 Dose: 5 ml Magnesium Hydroxide (Milk Of Magnesia) 30 ml PO DAILY [facility] Last Admin: 12/29/16 09:42 Dose: Not Given Midazolam HCl (Versed 1 Mg/Ml) Confirm Administered Dose 2 mg .ROUTE .STK-MED ONE Stop: 12/30/16 07:45 Last Admin: 12/30/16 09:57 Dose: Not Given Midazolam HCl (Versed 1 Mg/Ml) 2 mg IV .STK-MED ONE Stop: 12/30/16 08:49 Nicotine (Habitrol) 21 mg TRDERM ONETIME ONE Stop: 12/24/16 09:46 Last Admin: 12/24/16 10:20 Dose: 21 mg Nicotine (Habitrol) 7 mg TRDERM DAILY [facility] Last Admin: 12/28/16 08:25 Dose: 7 mg Ondansetron HCl (Zofran) 4 mg IVPUSH ONETIME ONE Stop: 12/27/16 20:40 Last Admin: 12/27/16 20:46 Dose: 4 mg Phytonadione (Aquamephyton) 5 mg SUBCUT ONETIME ONE Stop: 12/23/16 14:51 Last Admin: 12/23/16 16:21 Dose: 5 mg Prednisone (Prednisone) 20 mg PO WITHBREAKFAST [facility] Stop: 12/28/16 23:59 Last Admin: 12/28/16 08:25 Dose: 20 mg Propofol (Diprivan 20 Ml) Confirm Administered Dose 200 mg .ROUTE .STK-MED ONE Stop: 12/30/16 07:46 Last Admin: 12/30/16 09:57 Dose: Not Given Propofol (Diprivan 20 Ml) Confirm Administered Dose 200 mg .ROUTE .STK-MED ONE Stop: 12/30/16 08:15 Last Admin: 12/30/16 09:57 Dose: Not Given Propofol (Diprivan 20 Ml) 250 mg IV .STK-MED ONE Stop: 12/30/16 08:49 Sodium Chloride (Syrex Flush) 5 ml FLUSH Q8HR PRN PRN Reason: Keep Vein Open Sodium Polystyrene Sulfonate (Kayexalate) 15 gm PO Q6H [facility] Stop: 12/29/16 23:59 Last Admin: 12/29/16 21:30 Dose: 15 gm Tamsulosin HCl (Flomax) 0.4 mg PO DAILY [facility] Last Admin: 12/25/16 08:15 Dose: 0.4 mg - Exam Quality Assessment: No: supplemental oxygen General: alert, oriented, cooperative, no acute distress Neck: no JVD Lungs: Rhonchi Cardiovascular: Regular Rate, Regular Rhythm Abdomen: bowel sounds present, soft, no tenderness, no distension (Male) Exam: Other (ongoing hematuria, clots last night in Pierce) Extremities: edema (slight edema right mid forearm) Skin: other (slight erythema, right mid forearm, multiple areas of bruising) Neurological: other (patient uses a front wheeled walker). No: normal gait Psy/Mental Status: alert, normal affect, normal mood - Problem List Review Problem List Initiated/Reviewed/Updated: Yes - My Orders Last 24 Hours: My Active Orders 12/31/16 09:23 Transfuse Red Blood Cells [COMM] Routine 12/31/16 09:24 Aminocaproic Acid [Amicar] 5 gm Sodium Chloride 0.9% [Normal Saline] 250 ml IV ONETIME 12/31/16 09:29 Bladder Irrigation [RC] ASDIRECTED - Plan Plan:: update today, the patient underwent cystoscopy yesterday without complications-- found to have hematuria with multiple bladder neck bleeders--cauterized, A new Pierce catheter was placed. urine seem to clear up however last night more clots and more hematuria. Hemoglobin dropped to 8.2 new symptoms today, sore throat, pain in right arm extending into her right shoulder. IMPRESSION/PLAN Fhmnqmbwg-uzmqc-edqenlequk, INR 1.1--no longer on Coumadin, Pierce catheter changed yesterday post cystoscopy, Amicar 5g IV today. Bladder irrigation. acute pharyngitis, likely viral, added mucinex, Bytnqwgrbkyg-oxedzc-evym reactive thrombocytosis, suspect secondary to urinary tract infection--on Rocephin, COPD,appears stable however he was on no home beta-2 agonist. Started on duo nebs here. will need long-term beta 2 agonist--likely Symbicort Anemia-marked secondary to blood loss and chronic disease, since ongoing hematuria we'll transfuse 1 unit packed red blood cells today. Hyperkalemia, now normalized, no longer needing, changed to daily Kayexalate, discontinue duo nebs, place on Brovana, Urinary tract infection, likely colonization since ongoing Pierce catheter however in light of possible pending urological instrumentation will continue with Rocephin. Chronic kidney disease-stage 3, renal indices improving, avoid nephrotoxins agents if possible History of Bilateral hydroureteral, indwelling Pierce. Draining well Chronic urinary retention-secondary Pierce--removed alpha blockers Acute arthropathy, seems to be worse in right arm and right shoulder. Avoid NSAIDs, continue with tylenol Tobacco abuse disorder--decreased nicotine to 21 mg patch--doing well. Dizziness secondary to hypotension--this has improved some but will need blood transfusion. Previous history of DVT, risk versus benefit taking patient off of Coumadin. He is in agreement with discontinuing this Secondary diagnoses: Chronic corticosteroid therapy Hyperlipidemia Hypertension Prostate carcinoma Depression Secondary hyperparathyroidism COPD-rule out exacerbation overall plan today, Amicar, duo nebs change from scheduled to when necessary, Brovana, long discussion with patient regarding goals, mobility at home, he does not think he quite ready for assisted living however he does have an application for long-term care eventually. patient refused PT consult today. May have to be discharged tomorrow or consult/transfer to urological service at higher tertiary care if hematuria is ongoing.
[2016-12-31] MEDS ORDERED: Sodium Chloride 0.9% 5 ML Syringe FLUSH PRN (09:47)
[2016-12-31] MEDS: guaiFENesin 600 MG Tab.ER PO SCH ×2 (10:10→21:11)
[2016-12-31] MEDS: Arformoterol 15 MCG/2 ML Neb Soln NEB SCH ×2 (10:10→19:48)
[2016-12-31] MEDS: cefTRIAXone 1 GM Vial IVPUSH SCH (12:48)
[2016-12-31] MEDS: Sodium Chloride 0.9% 5 ML Syringe FLUSH PRN (21:11)
[2017-01-01] MEDS: Acetaminophen/HYDROcodone 325-10 MG Tab PO PRN (03:06)
[2017-01-01] MEDS: Arformoterol 15 MCG/2 ML Neb Soln NEB SCH (07:55)
[2017-01-01 08:04] LABS: CHLORIDE,CL 106 mmol/L (98-115); SODIUM,NA 142 mmol/L (136-145)
[2017-01-01] MEDS: Nicotine 21 MG/24 Hr Patch TRDERM SCH (08:58)
[2017-01-01] MEDS: Docusate Sodium 100 MG Cap PO SCH (08:58)
[2017-01-01] MEDS: guaiFENesin 600 MG Tab.ER PO SCH (08:59)
[2017-01-01] MEDS: Sertraline 50 MG Tab PO SCH (09:00)
[2017-01-01] MEDS: Omeprazole 20 MG Cap.CR PO SCH (09:00)
[2017-01-01 11:20] VITALS: BP 137/75
--- NOTE | 2017-01-05 10:08 | PN ---
01/01/2017 PATIENT NAME: MAHI VILLA SUBJECTIVE: This is a 76-year-old gentleman, who is being seen today for followup. He continues to have some hematuria. He had a cystoscopy and cauterization; however, it appears that the scabbed area at the bladder neck may have been irritated by the Pierce catheter, and he has continued to have a slow hematuria. His hemoglobin is 10.1. He did receive a packed cell transfusion. OBJECTIVE: VITAL SIGNS: His vital signs are stable. Blood pressure is 124/71, pulse 70, and temperature 96.8. His intake and output are satisfactory. Last 24 hours was 3467 in, and 3550 out. The Pierce catheter bag still is somewhat red. GENERAL: Examination reveals him to be alert. HEAD: Negative. HEART AND LUNGS: Stable. ABDOMEN: Soft. EXTREMITIES: Normal. NEUROLOGIC: Intact. IMPRESSIONS: Persistent hematuria due to bladder and neck bleeders and scabs at the area of the bladder neck that seemed to have been disrupted. The patient has been placed on IV Amicar, and today we will start him on oral Amicar at 5 g now, and 1 g every 8 hours. We will plan on putting a suprapubic catheter which would relieve his hematuria because of lack of irritation of the Pierce catheter at the bladder neck. This will be arranged for next week after his condition stabilizes. I have spoken him about this procedure, and he is understanding of it. We will continue with other medications as before. We will recheck a hemoglobin in a.m. /[id number]/MODL MTDD
--- NOTE | 2017-01-11 07:50 | DISCH ---
INPATIENT TO SWING BED STATUS ADMITTING DIAGNOSIS: Gross hematuria. FINAL DIAGNOSIS: Hematuria improved. BRIEF HISTORY AND ESSENTIAL FINDINGS: This is a 76-year-old gentleman who presented to the emergency room with gross hematuria through his indwelling Pierce catheter. The patient has a long history of prostate cancer and was receiving Lupron injections, but he had since stopped taking those. The patient's hemoglobin on admission was down to 7.7, he was transfused 2 units of packed RBCs. The patient also has a history of a DVT to his right lower extremity. He has been on Coumadin. On admission, his INR was elevated at 7. The patient was given vitamin K also. The patient also does have a history of bilateral hydroureteronephrosis and has the Pierce catheter in place. He has refused suprapubic catheter placement in the past. SIGNIFICANT LABS XRAYS AND CONSULTATION FINDINGS: The patient's EKG that was obtained upon admission was sinus rhythm with marked sinus arrhythmia at 77 beats per minute. The patient's chest x-ray that was also obtained on admission. The impression reads as follows per Radiology, question of faint infiltrate right middle lobe. The patient's lab work that was obtained upon admission: CBC showed a white count elevated at 14.0, hemoglobin 8.7, that was after he was transfused 2 units of packed RBCs. INR was 4.6, PT was 49.4. COURSE IN HOSPITAL WITH COMPLICATIONS IF ANY: The patient did receive vitamin K for his high INR. He did receive 2 units of packed RBCs. Hemoglobin did come up. The patient is doing well. Nursing staff has been irrigating Pierce catheter for some clots. The patient's pain has been well controlled. CONDITION TREATMENT AND FINAL DISPOSITION ON DISCHARGE AND PROGNOSIS: Condition is stable. Final disposition would be swing bed status. IMPRESSION AND PLAN: 1. History of prostate cancer with bilateral hydroureteronephrosis with gross hematuria requiring blood transfusion. Plan: We will continue the patient on IV fluids of lactated Ringer's at 50 mL/h. Nursing staff can irrigate Pierce catheter as needed for clots. Continue to monitor INRs. We are going to hold Coumadin at this time. Start the patient on Amicar. 2. History of deep vein thrombosis. Plan: Holding the patient's Coumadin. 3. Chronic kidney disease. Plan: We will continue to monitor. 4. Current smoker with history of chronic obstructive pulmonary disease. Plan: Continue with DuoNeb every 6 hours. Nicotine patch is on the patient. Continue with Brovana nebulizers twice a day. 5. History of hyperlipidemia. The patient's atorvastatin is on hold at this time. 6. History of depression. Plan: Continue with Zoloft 25 mg daily. 7. Pain. Continue with hydrocodone as needed. Pain has been well controlled. 8. History of gastroesophageal reflux disease. Plan: Continue with omeprazole 20 mg daily. /[id number]/MODL MTDD
== END 2017-01-01 11:17 | disposition home or self-care (01) | DRG 654 ==
LOC: KA.ED 12:10 → KA.MS 14:50 → UNDOADMOB 14:50 → OBSVTOIN 12-25 10:29 → KA.MS 12-25 10:29 → INTOOBSV 12-25 10:29
PROVIDERS: ADMIT Nurse Practitioner Family; ATTEND Nurse Practitioner Family
PROC: 30233N1 Transfusion of Nonautologous Red Blood Cells into Peripheral Vein, Percutaneous Approach (ICD-10-PCS; principal; 2016-12-23)
PROC: 0TQ Urinary System, Repair (ICD-10-PCS; 2016-12-30)
PROC: 0TJB8ZZ Inspection of Bladder, Via Natural or Artificial Opening Endoscopic (ICD-10-PCS; 2016-12-30)
PROC: 0T2BX0Z Change Drainage Device in Bladder, External Approach (ICD-10-PCS; 2016-12-30)
DX: R31.9 Hematuria, unspecified (principal); D50.0 Iron deficiency anemia secondary to blood loss (chronic); T83.518A Infection and inflammatory reaction due to other urinary catheter, initial encounter; T83.511A Infection and inflammatory reaction due to indwelling urethral catheter, initial encounter; R79.1 Abnormal coagulation profile; N18.9 Chronic kidney disease, unspecified; J44.9 Chronic obstructive pulmonary disease, unspecified; R42 Dizziness and giddiness; I12.9 Hypertensive chronic kidney disease with stage 1 through stage 4 chronic kidney disease, or unspecified chronic kidney disease; N18.3 Chronic kidney disease, stage 3 (moderate); F41.8 Other specified anxiety disorders; E78.5 Hyperlipidemia, unspecified; E21.3 Hyperparathyroidism, unspecified; F17.200 Nicotine dependence, unspecified, uncomplicated; J02.9 Acute pharyngitis, unspecified; M79.601 Pain in right arm; M25.511 Pain in right shoulder; E87.5 Hyperkalemia; N39.0 Urinary tract infection, site not specified; M12.9 Arthropathy, unspecified; N13.4 Hydroureter; I95.9 Hypotension, unspecified; Z79.01 Long term (current) use of anticoagulants; Z86.718 Personal history of other venous thrombosis and embolism; Z85.46 Personal history of malignant neoplasm of prostate; Z79.899 Other long term (current) drug therapy
CPT/HCPCS: 00910 ×2; 36415 ×3; 36430; 80048; 81001; 82728; 82746; 83540; 84466; 85025 ×3; 85045; 85610 ×3; 85651; 86850; 86900; 86901; 86920; 86922; 87086; 87088; 96361; 96374; 96376; 99283; 99284; A9270 ×16; G0378; J0696 ×2; J3430; J7030; P9016 ×2; 36416; 71020; 80053; 84132; 85018; 87186; 93005; J1956; J2250; J2405; J2704; J3010; J7050; J7120; S0017

== ENCOUNTER 2017-01-01 08:00 | Inpatient (IN) | payer MEDICARE, MEDICAID ==
[2017-01-01] MEDS ORDERED: Acetaminophen/HYDROcodone 325-10 MG Tab PO PRN (13:31)
[2017-01-01] MEDS ORDERED: Bisacodyl 10 MG Supp RECTAL PRN (13:45)
[2017-01-01] MEDS ORDERED: Albuterol/Ipratropium 3.0-0.5 MG/3 ML Neb Soln NEB PRN (13:47)
[2017-01-01] MEDS ORDERED: Ondansetron 4 MG Tab.DIS PO PRN (13:55)
[2017-01-01] MEDS ORDERED: AMINOCAPROIC ACID IV ONE (14:11)
[2017-01-01] MEDS ORDERED: SODIUM CHLORIDE 0.9% IV ONE (14:11)
[2017-01-01] MEDS ORDERED: cefTRIAXone 1 GM Vial IVPUSH SCH (14:30)
[2017-01-01] MEDS ORDERED: Simethicone 80 MG Tab.Chew PO PRN (15:00)
[2017-01-01] MEDS ORDERED: Sodium Chloride 0.9% 100 ML ONE (15:26)
[2017-01-01] MEDS ORDERED: Simethicone 80 MG Tab.Chew PO SCH (17:00)
[2017-01-01] MEDS: Arformoterol 15 MCG/2 ML Neb Soln NEB SCH (21:21)
[2017-01-01] MEDS: guaiFENesin 600 MG Tab.ER PO SCH (21:25)
[2017-01-02] MEDS: Sodium Chloride 0.9% 5 ML Syringe FLUSH PRN (05:52)
[2017-01-02] MEDS: AMINOCAPROIC ACID IV SCH ×3 (05:53→21:48)
[2017-01-02] MEDS: SODIUM CHLORIDE 0.9% IV SCH ×3 (05:53→21:48)
[2017-01-02] MEDS ORDERED: Aminocaproic Acid 1 GM in Sodium Chloride 0.9% 250 ML IV SCH (06:00)
[2017-01-02] MEDS: Arformoterol 15 MCG/2 ML Neb Soln NEB SCH ×2 (07:36→19:59)
[2017-01-02] MEDS ORDERED: SERTRALINE 25 MG PO SCH (09:00)
[2017-01-02] MEDS: Nicotine 21 MG/24 Hr Patch TRDERM SCH (09:17)
[2017-01-02] MEDS: Sertraline 50 MG Tab PO SCH (09:18)
[2017-01-02] MEDS: Omeprazole 20 MG Cap.CR PO SCH (09:18)
[2017-01-02] MEDS: Docusate Sodium 100 MG Cap PO SCH (09:19)
[2017-01-02] MEDS: guaiFENesin 600 MG Tab.ER PO SCH ×2 (09:20→19:59)
[2017-01-02] MEDS: Acetaminophen/HYDROcodone 325-10 MG Tab PO PRN (17:37)
[2017-01-02] MEDS: diphenhydrAMINE 25 MG Cap PO SCH (21:19)
[2017-01-03] MEDS: diphenhydrAMINE 25 MG Cap PO SCH ×3 (05:45→21:30)
[2017-01-03] MEDS: Acetaminophen/HYDROcodone 325-10 MG Tab PO PRN ×2 (05:53→19:16)
[2017-01-03] MEDS: Sodium Chloride 0.9% 5 ML Syringe FLUSH PRN ×2 (06:12→21:57)
[2017-01-03] MEDS: AMINOCAPROIC ACID IV SCH ×3 (06:15→21:57)
[2017-01-03] MEDS: SODIUM CHLORIDE 0.9% IV SCH ×3 (06:15→21:57)
[2017-01-03] MEDS: Arformoterol 15 MCG/2 ML Neb Soln NEB SCH ×2 (07:38→19:17)
[2017-01-03] MEDS: Nicotine 21 MG/24 Hr Patch TRDERM SCH (08:08)
[2017-01-03] MEDS: Omeprazole 20 MG Cap.CR PO SCH (08:10)
[2017-01-03] MEDS: Docusate Sodium 100 MG Cap PO SCH (08:10)
[2017-01-03] MEDS: Sertraline 50 MG Tab PO SCH (08:10)
[2017-01-03] MEDS: guaiFENesin 600 MG Tab.ER PO SCH ×2 (08:10→21:32)
[2017-01-04] MEDS: Docusate Sodium 100 MG Cap PO SCH (08:19)
[2017-01-04] MEDS: guaiFENesin 600 MG Tab.ER PO SCH ×2 (08:19→21:04)
[2017-01-04] MEDS: Omeprazole 20 MG Cap.CR PO SCH (08:20)
[2017-01-04] MEDS: Arformoterol 15 MCG/2 ML Neb Soln NEB SCH ×2 (08:20→21:04)
[2017-01-04] MEDS: Sertraline 50 MG Tab PO SCH (08:20)
[2017-01-04] MEDS: Nicotine 21 MG/24 Hr Patch TRDERM SCH (08:20)
[2017-01-04] MEDS: Acetaminophen/HYDROcodone 325-10 MG Tab PO PRN (21:18)
[2017-01-05] MEDS: Docusate Sodium 100 MG Cap PO SCH (08:09)
[2017-01-05] MEDS: Acetaminophen/HYDROcodone 325-10 MG Tab PO PRN (08:09)
[2017-01-05] MEDS: Nicotine 21 MG/24 Hr Patch TRDERM SCH (08:09)
[2017-01-05] MEDS: Sertraline 50 MG Tab PO SCH (08:10)
[2017-01-05] MEDS: Omeprazole 20 MG Cap.CR PO SCH (08:10)
[2017-01-05] MEDS: guaiFENesin 600 MG Tab.ER PO SCH ×2 (08:10→21:02)
[2017-01-05] MEDS: Arformoterol 15 MCG/2 ML Neb Soln NEB SCH ×2 (08:33→20:47)
--- NOTE | 2017-01-05 11:35 | PN ---
01/05/2017 PATIENT NAME: MAHI VILLA SUBJECTIVE: This is a 76-year-old gentleman, who originally was admitted to the hospital with gross hematuria. The patient has a history of bladder cancer along with having history of DVT. He was on anticoagulation therapy of Coumadin at home. He also has a Pierce catheter that was placed for bilateral hydroureteronephrosis by Urology. On admission, the patient's hemoglobin was down to 7.7, requiring blood transfusion. Now today, the patient states he is feeling good, he states they are just a little bit of blood in the urine, but there is no clots, much better than it has been. He denies any pain. He denies any chest pain, any shortness of breath, or heart palpitations. The patient states he feels pretty good today. OBJECTIVE: VITAL SIGNS: Today, temperature is 99.5, pulse is 88, blood pressure is 131/77, respiratory rate is 20, oxygen saturations are 97% on room air. GENERAL: This is a white male, in no acute distress. LUNGS: Sounds are clear in all lung hernandez. HEART: Tones are regular rate and rhythm. No murmurs identified. ABDOMEN: Soft, nontender, and nondistended. Bowel sounds present x4. GENITOURINARY: Pierce catheter is draining slightly blood tinged clear urine at this time. LABORATORY DATA: The patient's lab work that was obtained yesterday showed a white count elevated at 17.5 and hemoglobin 9.8. IMPRESSION AND PLAN: 1. History of prostate cancer, and bilateral hydroureteronephrosis, with gross hematuria, requiring blood transfusion. Plan: We will continue with lactated Ringer's at 50 mL an hour for hydration. We will repeat a CBC and CMP today. We will also repeat the urinalysis today. We will obtain an INR today. Also, the patient is scheduled for surgery tomorrow to have a suprapubic catheter placed by Dr. Gianfranco Cabrera. The patient has completed his course of Amicar. We are currently holding Coumadin at this time. Bleeding in the patient's Pierce catheter is been controlled. No clots or requiring irrigation for the last 48 hours. 2. History of DVT Plan: Continuing the patient's Coumadin at this time. 3. Chronic kidney disease. Plan: We will obtain a comprehensive metabolic panel today. 4. Current smoker with history of chronic obstructive pulmonary disease. Plan: We will continue with DuoNeb every 6 hours as needed. He does have a nicotine patch on at this time. We will continue with Brovana nebulizers twice a day. 5. History of hyperlipidemia. We are holding the patient's atorvastatin 10 mg daily that he was taking at home. 6. History of depression. Plan: Continue with Zoloft 25 mg daily. 7. Pain. Plan: Continue with hydrocodone as needed. 8. Gastroesophageal reflux disease. Plan: Continue with omeprazole 20 mg daily. He can have Zofran 4 mg as needed. Also, he can have simethicone as needed for gas or bloating. 9. Leukocytosis of unknown etiology. Plan: Repeat CBC today. /[id number]/MODL MTDD
[2017-01-06] MEDS: Acetaminophen/HYDROcodone 325-10 MG Tab PO PRN ×3 (06:19→22:03)
[2017-01-06] MEDS ORDERED: Lidocaine 2% Jelly 5 ML Tube ONE (06:41)
[2017-01-06] MEDS ORDERED: Bupivacaine 0.5%/EPINEPHrine 1:200,000 30 ML SDV ONE (06:41)
[2017-01-06] MEDS: Arformoterol 15 MCG/2 ML Neb Soln NEB SCH ×2 (06:59→19:43)
[2017-01-06] MEDS ORDERED: Lactated Ringers 1,000 ML IV SCH (07:00)
[2017-01-06] MEDS ORDERED: fentaNYL 100 MCG/2 ML SDV ONE (07:00)
[2017-01-06] MEDS ORDERED: Ketamine 500 mg/10 ML MDV ONE (07:00)
[2017-01-06] MEDS ORDERED: Midazolam 1 MG/ML 2 ML SDV ONE (07:00)
[2017-01-06] MEDS ORDERED: Propofol 200 MG/20 ML SDV ONE (07:01)
[2017-01-06] MEDS ORDERED: ceFAZolin 1 GM Vial ONE (07:43)
[2017-01-06] MEDS ORDERED: Propofol 200 MG/20 ML SDV IV ONE (08:15)
[2017-01-06] MEDS ORDERED: ceFAZolin 1 GM Vial IV ONE (08:15)
[2017-01-06] MEDS ORDERED: Midazolam 1 MG/ML 2 ML SDV IV ONE (08:15)
[2017-01-06] MEDS ORDERED: fentaNYL 100 MCG/2 ML SDV IV ONE (08:15)
[2017-01-06] MEDS ORDERED: Ketamine 500 mg/10 ML MDV IV ONE (08:15)
[2017-01-06] MEDS ORDERED: Bupivacaine 0.5%/EPINEPHrine 1:200,000 30 ML SDV INFILT ONE (08:48)
--- NOTE | 2017-01-06 09:19 | PCM.OPNOTE ---
- General Post-Op/Procedure Note Date of Surgery/Procedure: 01/06/17 Operative Procedure(s): suprapubic cystotomy Findings: Bladder was distended. Small clots noted within the bladder. Pre Op Diagnosis: Persistent bleeding due to indwelling catheter irritation at the bladder neck. prostate carcinoma, untreated. Anesthesia Technique: MAC Primary Surgeon: Gianfranco Cabrera Complications: None Condition: Good Free Text/Narrative:: preoperative diagnosis: persistent bleeding from prostate and the 2 prostate carcinoma. Liters are at the bladder neck. Cauterization performed but clots are not stable due to the presence of the indwelling Pierce catheter. Intake & Output 01/05/17 01/06/17 01/06/17 22:59 06:59 14:59 Intake Total 770 0 Output Total 600 900 Balance 170 -900 Preoperative diagnosis : Persistent bleeding from the bladder neck due to prostate cancer Postoperative diagnosis: As above. Procedure performed: Suprapubic cystotomy Procedure: informed consent was obtained the patient regarding this procedure. All possible complications were discussed. These include internal organ injuries. The patient was taken to the operative room and sedation was administered by the maintenance construction helper. The suprapubic area was thoroughly prepped and draped in the usual fashion. The bladder was distended with saline up to 350 cc. using ultrasound and introduced a 3-1/2 inch 20-gauge spinal needle into the bladder and determine the depth and position. I then made a small suprapubic incision and inserted a suprapubic catheter using the trocar technique.The bulb was filled with 50 cc of saline. The patient tolerated the procedure well.
[2017-01-06] MEDS: Omeprazole 20 MG Cap.CR PO SCH (09:20)
[2017-01-06] MEDS: Docusate Sodium 100 MG Cap PO SCH (09:20)
[2017-01-06] MEDS: guaiFENesin 600 MG Tab.ER PO SCH ×3 (10:02→20:33)
[2017-01-06] MEDS: Nicotine 21 MG/24 Hr Patch TRDERM SCH (10:02)
[2017-01-06] MEDS: Sertraline 50 MG Tab PO SCH (10:03)
[2017-01-06] MEDS: Sodium Chloride 0.9% 5 ML Syringe FLUSH PRN (16:01)
[2017-01-07] MEDS: Omeprazole 20 MG Cap.CR PO SCH (06:13)
[2017-01-07] MEDS: Arformoterol 15 MCG/2 ML Neb Soln NEB SCH ×2 (07:05→20:04)
[2017-01-07] MEDS ORDERED: SODIUM CHLORIDE 0.9% IV ONE ×2 (08:39→09:00)
[2017-01-07] MEDS ORDERED: AMINOCAPROIC ACID IV ONE ×2 (08:39→09:00)
[2017-01-07] MEDS ORDERED: cefTRIAXone 1 GM in Sodium Chloride 0.9% 50 ML IV SCH (08:45)
[2017-01-07] MEDS ORDERED: cefTRIAXone 1 GM Vial IV SCH (09:00)
[2017-01-07] MEDS: diphenhydrAMINE 50 MG/ML SDV IVPUSH SCH ×2 (09:31→17:00)
[2017-01-07] MEDS: Nicotine 21 MG/24 Hr Patch TRDERM SCH (09:35)
[2017-01-07] MEDS: Docusate Sodium 100 MG Cap PO SCH (09:35)
[2017-01-07] MEDS: Sertraline 50 MG Tab PO SCH (09:36)
[2017-01-07] MEDS: guaiFENesin 600 MG Tab.ER PO SCH ×2 (09:36→20:13)
[2017-01-07] MEDS: cefTRIAXone 1 GM Vial IVPUSH SCH (09:50)
--- NOTE | 2017-01-07 10:20 | PN ---
01/07/2017 PATIENT NAME: MAHI VILLA SUBJECTIVE: The patient underwent suprapubic catheter placement yesterday in the OR. Today, he says that there is still quite a few clots coming out of the catheter. He denies any significant pain at this time. He says the pain is pretty well controlled. He denies any cough for shortness of breath. OBJECTIVE: VITAL SIGNS: Today, temperature is 97.9, pulse is 79, blood pressure is 132/60, respiratory rate is 18, oxygen saturations are 96% to 98% on room air. GENERAL: The patient is alert and orientated, in no acute distress. LUNGS: Sounds are clear in upper lobes, but diminished at bilateral bases. HEART: Tones are regular rate and rhythm. ABDOMEN: Soft, nontender, and nondistended. Bowel sounds present x4. GENITOURINARY: Suprapubic catheter site appears to be doing well. No drainage noted. Urine is blood tinged with some small clots. LABORATORY DATA: The patient's lab work that was obtained on 01/05/2017, CBC showed a white count elevated at 20.7, hemoglobin 9.1. Chemistry panel showed sodium slightly low at 134, BUN 34, creatinine 2.53, GFR was 25, albumin low at 1.48, total protein low at 5.2, and alkaline phosphatase 883. IMPRESSION AND PLAN: 1. History of prostate cancer and bilateral hydroureteronephrosis with gross hematuria. Plan: Dr. Gianfranco Cabrera, had placed a suprapubic catheter yesterday. The patient continues to have some blood clots in his urine. Requiring frequent irrigation by nursing staff. We will repeat a CBC and a CMP tomorrow morning. INRs have been steady at 1.2 the last two days. The patient's Coumadin is on hold. We are going to start the patient back on a course of Amicar. He is going to receive Amicar 5 g IV one time, followed by 1 g IV every 8 hours for a total of eight doses. 2. History of deep venous thrombosis. Plan: Continue holding the patient's Coumadin at this time. 3. Chronic kidney disease. The patient's GFR is still low at 25. We will repeat a CMP tomorrow morning. 4. Current smoker with history of chronic obstructive pulmonary disease. Plan: Continue with DuoNeb every 6 hours as needed. He does have a nicotine patch in place. We will continue with Brovana nebulizers twice a day. 5. History of hyperlipidemia. We are holding patient's atorvastatin at this time 10 mg daily. Alk phos elevated at 883. 6. History of depression. Plan: Continue with Zoloft 25 mg daily. 7. Pain. Plan: The patient's pain seemed to be pretty controlled at this time. He does have hydrocodone and he can take as needed if he needs to. 8. Gastroesophageal reflux disease. Plan: Continue with omeprazole 20 mg daily. He also has some Zofran 4 mg as needed if he has nausea and also simethicone as needed for gas and bloating. 9. Leukocytosis of unknown etiology. Plan: The patient's last CBC showed a white count elevated at 20.7. We did obtain a chest x-ray yesterday, which the impression per Radiology read question of faint infiltrate right middle lobe. The patient denies any cough or shortness of breath. We are going to start the patient on Rocephin 1 g IV daily and repeat a CBC tomorrow morning. /[id number]/MODL MTDD
[2017-01-07] MEDS: SODIUM CHLORIDE 0.9% IV SCH (17:32)
[2017-01-07] MEDS: AMINOCAPROIC ACID IV SCH (17:32)
[2017-01-08] MEDS: diphenhydrAMINE 50 MG/ML SDV IVPUSH SCH ×3 (00:45→16:56)
[2017-01-08] MEDS: Acetaminophen/HYDROcodone 325-10 MG Tab PO PRN (01:16)
[2017-01-08] MEDS: AMINOCAPROIC ACID IV SCH ×3 (01:17→17:33)
[2017-01-08] MEDS: SODIUM CHLORIDE 0.9% IV SCH ×3 (01:17→17:33)
[2017-01-08] MEDS: Omeprazole 20 MG Cap.CR PO SCH (06:13)
[2017-01-08] MEDS: Sertraline 50 MG Tab PO SCH (08:03)
[2017-01-08] MEDS: Docusate Sodium 100 MG Cap PO SCH (08:03)
[2017-01-08] MEDS: guaiFENesin 600 MG Tab.ER PO SCH ×2 (08:04→20:24)
[2017-01-08] MEDS: Nicotine 21 MG/24 Hr Patch TRDERM SCH (08:07)
[2017-01-08] MEDS: Arformoterol 15 MCG/2 ML Neb Soln NEB SCH ×2 (08:52→20:13)
[2017-01-08] MEDS: cefTRIAXone 1 GM Vial IVPUSH SCH (09:29)
--- NOTE | 2017-01-08 14:46 | HP ---
CHIEF COMPLAINT: Gross hematuria. HISTORY OF PRESENT ILLNESS: This is a 76-year-old gentleman, who was admitted through the emergency room back on 12/23 with concerns about gross hematuria in his indwelling Pierce catheter. The patient does have a long history of prostate cancer and he was receiving Lupron injections, but he had quit taking the Lupron injections. The patient also does have a history of a DVT to his right lower extremity. He has been taking Coumadin for the last two years. The patient also was seen by Urology, last he was seen was 10/2015. At this time, he was diagnosed with hydroureteronephrosis bilaterally, and Pierce catheter was then placed at that time. The patient came in to the emergency room. Originally, his hemoglobin was low at 7.7, and his INR was elevated at 7. He was transfused 2 units of packed RBCs and given some vitamin K, he has been doing well, so he can be transferred from inpatient to swing bed status at this time. PAST MEDICAL HISTORY: Prostate cancer, hydroureteronephrosis, DVT, chronic kidney disease, COPD, smoker, hyperlipidemia, depression, chronic pain, GERD. MEDICATIONS: Hydrocodone as needed, DuoNeb as needed, he is receiving Amicar infusions at this time, Brovana nebulizer twice a day, Dulcolax as needed, nicotine patch, omeprazole 20 mg daily, Zofran as needed, Zoloft 25 mg daily. ALLERGIES: No known allergies at this time. SOCIAL/PERSONAL HISTORY: The patient is retired. He does live in a house in [place], [place]. Denies any alcohol. The patient does have a long history of smoking. REVIEW OF SYSTEMS: CONSTITUTIONAL: No weight loss. No fever. No chills. No night sweats. Appetite is good. No fatigue. EYES: No recent visual changes. ENT: No sinus congestion or hoarseness. CARDIOVASCULAR: No chest pain or palpitations. RESPIRATORY: No cough. No shortness of breath. GI: No vomiting, diarrhea, or melena. : Hematuria with clots through his Pierce catheter. MUSCULOSKELETAL: No new bone pain or joint swelling. INTEGUMENTARY: No rash or pruritus. NEUROLOGIC/PSYCHIATRIC: No recent headache or focal weakness. No depressive symptoms. ENDOCRINE: No heat or cold intolerances or polydipsia. HEMATOLOGIC/LYMPHATIC: No excessive bruising or lymph node swelling. ALLERGIC/IMMUNOLOGIC: No hives or recurrent infections. PHYSICAL EXAMINATION: GENERAL: This is an elderly white male, in no acute distress. VITAL SIGNS: Blood pressure 123/56, pulse 71, temperature is 97.1, respiratory rate is 20, oxygen saturation 97% on room air. HEENT: Head is normocephalic. EOMs intact. Pupils equal, round, and reactive to light and accommodation. Bilateral tympanic membranes are intact. Nose is clear. No pharyngeal erythema noted. NECK: Supple with no JVD. Trachea midline. LUNGS: Clear in the upper lobes. Diminished at bilateral bases. CARDIAC: Regular rate and rhythm. No murmurs identified. ABDOMEN: Soft, nontender, nondistended. Bowel sounds present. EXTREMITIES: Full range of motion. No joint effusions noted. NEUROLOGIC: He is grossly intact. DIAGNOSTIC: The patient's hemoglobin stable at 8.7, WBC of 14.0. INR 4.6. IMPRESSION/PLAN: 1. History of prostate cancer with bilateral hydroureteronephrosis with gross hematuria. Plan: The patient may undergo suprapubic catheter placement by Dr. Gomez Cabrera. Nurses have to continue irrigating Pierce catheter for blood clots. We will do a repeat CBC. Continue to monitor INRs, Coumadin is on hold at this time. Amicar course as IV will be given. 2. History of deep vein thrombosis. Plan: Continue holding the patient's Coumadin at this time. 3. Chronic kidney disease. Continue to monitor. 4. Current smoker with history of chronic obstructive pulmonary disease. Continue with Brovana nebulizers twice a day and DuoNeb every 6 hours as needed. Nicotine patch is in place. 5. History of hyperlipidemia. Holding the patient's atorvastatin at this time. 6. History of depression. Plan: Continue with Zoloft 25 mg daily. 7. Pain control. Plan: Continue with hydrocodone as needed. 8. History of gastroesophageal reflux disease. Plan: Continue with omeprazole 20 mg daily. Overall plan: Transferred from in-patient status to swing bed. /[id number]/MODL MTDD
[2017-01-09] MEDS: diphenhydrAMINE 50 MG/ML SDV IVPUSH SCH ×3 (00:31→17:16)
[2017-01-09] MEDS: AMINOCAPROIC ACID IV SCH ×3 (01:33→17:51)
[2017-01-09] MEDS: Acetaminophen/HYDROcodone 325-10 MG Tab PO PRN (01:33)
[2017-01-09] MEDS: SODIUM CHLORIDE 0.9% IV SCH ×3 (01:33→17:51)
[2017-01-09] MEDS: Omeprazole 20 MG Cap.CR PO SCH (06:08)
[2017-01-09] MEDS: Arformoterol 15 MCG/2 ML Neb Soln NEB SCH ×2 (08:35→20:01)
[2017-01-09] MEDS: Nicotine 21 MG/24 Hr Patch TRDERM SCH (08:36)
[2017-01-09] MEDS: guaiFENesin 600 MG Tab.ER PO SCH ×2 (08:38→20:01)
[2017-01-09] MEDS: cefTRIAXone 1 GM Vial IVPUSH SCH (08:38)
[2017-01-09] MEDS: Docusate Sodium 100 MG Cap PO SCH (08:39)
[2017-01-09] MEDS: Sertraline 50 MG Tab PO SCH (08:39)
[2017-01-10] MEDS: Omeprazole 20 MG Cap.CR PO SCH (06:03)
[2017-01-10] MEDS: Nicotine 21 MG/24 Hr Patch TRDERM SCH (08:08)
[2017-01-10] MEDS: Docusate Sodium 100 MG Cap PO SCH (08:09)
[2017-01-10] MEDS: Sertraline 50 MG Tab PO SCH (08:09)
[2017-01-10] MEDS: Arformoterol 15 MCG/2 ML Neb Soln NEB SCH ×2 (08:11→22:49)
[2017-01-10] MEDS: guaiFENesin 600 MG Tab.ER PO SCH ×2 (08:11→22:49)
[2017-01-10] MEDS: cefTRIAXone 1 GM Vial IVPUSH SCH (08:13)
--- NOTE | 2017-01-10 13:21 | PCM.PN ---
- General Info Date of Service: 01/10/17 Admission Dx/Problem (Free Text): Chief complaint: History of present illness: Patient is a 76-year-old gentleman who was admitted on 12/23 with concerns of gross hematuria-history of indwelling Pierce catheter. Patient has a long history of prostate carcinoma and had been receiving Lupron injections but had quit these injections. Patient also has a history of DVT to his right lower extremity. He had been taking Coumadin for the last 2 years. Patient was seen by Urology on October 2015. At that time he was diagnosed with hydroureteronephrosis bilaterally and Pierce catheter was then placed at that time. In the emergency room room patient was noted to be quite anemic-7.7, INR 7. Patient was transfused with 2 units of packed RBCs and given some vitamin K. He has been doing quite well so he was transferred from inpatient to swing bed for further rehabilitation, monitoring and strength building prior to discharge ____ Patient reports today: Feels great except for the rash Rash started again about 2 days ago it has continued and progressed-all over- erythematous, bilateral arms swollen, itches, on his back and chest Denied any nausea, vomiting, cough Still some slight abdominal discomfort associated with recent surgery Urine bag clear Appetite fair-not optimal Denied any chest pain Shortness of breath at his baseline-especially with exertion Nurses report today: Rash has returned-question medication related to Amicar Pre-medicating him with Benadryl last time Functional Status: Reports: pain controlled, tolerating diet (Appetite only fair ), ambulating, urinating (Per suprapubic catheter) - Review of Systems General: Reports: Weakness, Fatigue, Malaise, Appetite (Not optimal). Denies: Fever, Chills HEENT: Reports: no symptoms Pulmonary: Reports: shortness of breath (Chronic especially with exertion). Denies: cough, wheezing Cardiovascular: Reports: No Symptoms Gastrointestinal: Reports: Abdominal pain (Suprapubic somewhat), Decreased appetite. Denies: Constipation, Diarrhea, Hematochezia, Melena, Nausea, Vomiting Genitourinary: Reports: other (Suprapubic catheter draining clear yellow urine) Musculoskeletal: Reports: no symptoms Skin: Reports: rash Neurological: Reports: No Symptoms, Weakness Psychiatric: Reports: no symptoms - Patient Data Vitals - most recent: Last Vital Signs Temp 98.6 F 01/10/17 06:14 Pulse 75 01/10/17 06:14 Resp 16 01/10/17 06:14 BP 110/56 L 01/10/17 06:14 Pulse Ox 97 01/10/17 06:14 Weight - most recent: 181 lb 9.6 oz I&O - last 24 hours: Intake & Output 01/09/17 01/10/17 01/10/17 22:59 06:59 14:59 Intake Total 350 250 Output Total 800 700 Balance -450 -450 Lab Results last 24 hrs: Laboratory Results - last 24 hr 01/10/17 01/10/17 Range/Units 07:18 07:18 WBC 16.7 H (5.0-10.0) 10^3/uL RBC 3.17 L (4.50-6.00) 10^6/uL Hgb 9.4 L (13.0-17.0) g/dL Hct 27.9 L (40.0-52.0) % MCV 88.1 (82.0-92.0) fL MCH 29.6 (27.0-31.0) pg MCHC 33.6 (32.0-36.0) g/dL RDW 15.8 H (11.5-14.5) % Plt Count 268 (150-300) 10^3/uL MPV 8.9 (7.4-10.4) fL Neut % (Auto) 80.6 H (50.0-70.0) % Lymph % (Auto) 4.5 L (20.0-40.0) % [place] % (Auto) 2.7 (2.0-8.0) % Eos % (Auto) 11.5 H (1.0-3.0) % Baso % (Auto) 0.7 (0.0-1.0) % Neut # (Auto) 13.4 H (2.5-7.0) 10^3/uL Lymph # (Auto) 0.8 L (1.0-4.0) 10^3/uL [place] # (Auto) 0.5 (0.1-0.8) 10^3/uL Eos # (Auto) 1.9 H (0.1-0.3) 10^3/uL Baso # (Auto) 0.1 (0.0-0.1) 10^3/uL Sodium 138 (136-145) mmol/L Potassium 4.3 (3.3-5.3) mmol/L Chloride 107 (98-115) mmol/L Carbon Dioxide 14.8 L (21.0-32.0) mmol/L BUN 26 H (6-25) mg/dL Creatinine 2.42 H (0.51-1.17) mg/dL Est Cr Clr Drug Dosing 25.98 mL/min Estimated GFR (MDRD) 26 mL/min Glucose 84 (70-110) mg/dL Calcium 7.3 L (8.7-10.3) mg/dL Med Orders - Current: Current Medications Hydrocodone Bitart/Acetaminophen (Howard 325-10 Mg) 1 tab PO Q6H PRN PRN Reason: Pain Last Admin: 01/09/17 01:33 Dose: 1 tab Albuterol/Ipratropium (Duoneb 3.0-0.5 Mg/3 Ml) 3 ml NEB Q4H PRN PRN Reason: Dyspnea Last Admin: 01/06/17 07:49 Dose: 3 ml Arformoterol Tartrate (Brovana) 15 mcg NEB BIDRT [facility] Last Admin: 01/10/17 08:11 Dose: 15 mcg Bisacodyl (Dulcolax) 10 mg RECTAL DAILY PRN PRN Reason: Constipation Ceftriaxone Sodium (Rocephin) 1 gm IVPUSH Q24H [facility] Last Admin: 01/10/17 08:13 Dose: 1 gm Docusate Sodium (Colace) 100 mg PO DAILY [facility] Last Admin: 01/10/17 08:09 Dose: 100 mg Guaifenesin (Mucinex) 600 mg PO BID [facility] Last Admin: 01/10/17 08:11 Dose: 600 mg Nicotine (Habitrol) 21 mg TRDERM DAILY [facility] Last Admin: 01/10/17 08:08 Dose: 21 mg Omeprazole (Omeprazole) 20 mg PO ACBREAKFAST [facility] Last Admin: 01/10/17 06:03 Dose: 20 mg Ondansetron HCl (Zofran Odt) 4 mg PO Q6H PRN PRN Reason: Nausea/Vomiting Sertraline HCl (Zoloft) 25 mg PO DAILY [facility] Last Admin: 01/10/17 08:09 Dose: 25 mg Simethicone (Simethicone) 80 mg PO QIDACANDBED PRN PRN Reason: Indigestion Sodium Chloride (Syrex Flush) 5 ml FLUSH Q8HR PRN PRN Reason: Keep Vein Open Last Admin: 01/06/17 16:01 Dose: 5 ml Discontinued Medications Hydrocodone Bitart/Acetaminophen (Howard 325-10 Mg) tab PO Q6H PRN PRN Reason: Pain Bupivacaine HCl/Epinephrine Bitart (Marcaine 0.5%/Epinephrine 1:200,000) Confirm Administered Dose 30 ml .ROUTE .STK-MED ONE Stop: 01/06/17 06:42 Last Admin: 01/06/17 09:20 Dose: Not Given Bupivacaine HCl/Epinephrine Bitart (Marcaine 0.5%/Epinephrine 1:200,000) 7 ml INFILT .STK-MED ONE Stop: 01/06/17 08:49 Last Admin: 01/06/17 08:48 Dose: 7 ml Cefazolin Sodium (Ancef) Confirm Administered Dose 1 gm .ROUTE .STK-MED ONE Stop: 01/06/17 07:44 Last Admin: 01/06/17 10:41 Dose: Not Given Cefazolin Sodium (Ancef) 1 gm IV .STK-MED ONE Stop: 01/06/17 08:16 Ceftriaxone Sodium (Rocephin) 1 gm IVPUSH Q24H [facility] Last Admin: 01/01/17 14:05 Dose: 1 gm Ceftriaxone Sodium (Rocephin) 1 gm IV Q24H [facility] Diphenhydramine HCl (Benadryl) 25 mg PO Q8H [facility] Last Admin: 01/03/17 21:30 Dose: 25 mg Diphenhydramine HCl (Benadryl) 25 mg IVPUSH Q8H [facility] Stop: 01/09/17 17:01 Last Admin: 01/09/17 17:16 Dose: 25 mg Fentanyl (Sublimaze) Confirm Administered Dose 100 mcg .ROUTE .STK-MED ONE Stop: 01/06/17 07:01 Last Admin: 01/06/17 10:40 Dose: Not Given Fentanyl (Sublimaze) 100 mcg IV .[facility] Stop: 01/06/17 08:16 Aminocaproic Acid 5 gm/ Sodium (Chloride) 270 mls @ 250 mls/hr IV ONETIME ONE Stop: 01/01/17 15:15 Last Admin: 01/01/17 15:41 Dose: 250 mls/hr Aminocaproic Acid 1 gm/ Sodium (Chloride) 254 mls @ 250 mls/hr IV Q8HR [facility] Stop: 01/03/17 23:59 Aminocaproic Acid 1 gm/ Sodium (Chloride) 54 mls @ 53.144 mls/hr IV Q8HR [facility] Stop: 01/03/17 23:59 Last Admin: 01/03/17 21:57 Dose: 53.144 mls/hr Sodium Chloride (Normal Saline) Confirm Administered Dose 100 mls @ as directed .ROUTE .[facility] ONE Stop: 01/01/17 15:27 Last Admin: 01/01/17 15:47 Dose: 25 ml Sodium Chloride (Normal Saline) Confirm Administered Dose 150 mls @ as directed .ROUTE .[facility] ONE Stop: 01/02/17 05:49 Last Admin: 01/02/17 05:53 Dose: 100 ml Sodium Chloride (Normal Saline) 150 mls @ 55 mls/hr IV DAILY [facility] Last Admin: 01/03/17 08:11 Dose: Not Given Lactated Ringer's (Ringers, Lactated) 1,000 mls @ 50 mls/hr IV ASDIRECTED [facility] Stop: 01/06/17 11:00 Last Admin: 01/06/17 06:11 Dose: 50 mls/hr Aminocaproic Acid 5 gm/ Sodium (Chloride) 270 mls @ 250 mls/hr IV ONETIME ONE Stop: 01/07/17 09:43 Last Admin: 01/07/17 10:10 Dose: Not Given Aminocaproic Acid 5 gm/ Sodium (Chloride) 270 mls @ 270 mls/hr IV ONETIME ONE Stop: 01/07/17 09:59 Last Admin: 01/07/17 10:23 Dose: 270 mls/hr Aminocaproic Acid 1 gm/ Sodium (Chloride) 54 mls @ 54 mls/hr IV Q8H [facility] Stop: 01/09/17 17:31 Last Admin: 01/09/17 17:51 Dose: 54 mls/hr Ketamine HCl (Ketalar) Confirm Administered Dose 500 mg .ROUTE .[facility] ONE Stop: 01/06/17 07:01 Last Admin: 01/06/17 10:40 Dose: Not Given Ketamine HCl (Ketalar) 25 mg IV .[facility] ONE Stop: 01/06/17 08:16 Lidocaine HCl (Xylocaine 2% Jelly) Confirm Administered Dose 5 ml .ROUTE .[facility] ONE Stop: 01/06/17 06:42 Last Admin: 01/06/17 09:20 Dose: Not Given Midazolam HCl (Versed 1 Mg/Ml) Confirm Administered Dose 2 mg .ROUTE .[facility] ONE Stop: 01/06/17 07:01 Last Admin: 01/06/17 10:40 Dose: Not Given Midazolam HCl (Versed 1 Mg/Ml) 2 mg IV .[facility] ONE Stop: 01/06/17 08:16 Omeprazole (Omeprazole) 20 mg PO DAILY [facility] Last Admin: 01/05/17 08:10 Dose: 20 mg Propofol (Diprivan 20 Ml) Confirm Administered Dose 200 mg .ROUTE .[facility] ONE Stop: 01/06/17 07:02 Last Admin: 01/06/17 10:40 Dose: Not Given Propofol (Diprivan 20 Ml) 200 mg IV .[facility] ONE Stop: 01/06/17 08:16 Simethicone (Simethicone) 80 mg PO QIDACANDBED [facility] - Exam General: alert, oriented, cooperative, no acute distress, other (Lying in bed with head of bed increase 30, patient looks much better than a couple weeks ago when I saw him, does not appear septic or toxic) HEENT: Pupils equal, Pupils reactive, EOMI, Mucous membr. moist/pink. No: Scleral icterus Neck: supple, trachea midline, no JVD, no thyromegaly. No: lymphadenopathy Lungs: Normal respiratory effort, Decreased breath sounds, Rales, Wheezing ( Occasional slight) Cardiovascular: Regular Rate, Regular Rhythm, Murmurs (1/6 systolic) Abdomen: bowel sounds present, soft, no distension, tenderness (Very slight tenderness around suprapubic area but no unusual induration), other (Suprapubic catheter appears in place-draining clear yellow urine). No: rigidity, rebound, guarding, distension, organomegaly Skin: rash (Diffuse body erythematous rash no open or draining lesions) Neurological: no new focal deficit, other (Generalized weakness/fatigue but better than 2 weeks ago) Psy/Mental Status: alert, normal affect, normal mood - Problem List Review Problem List Initiated/Reviewed/Updated: Yes - Assessment Assessment:: Rash-suspect medication related-Amicar versus Rocephin Bilateral hydroureteronephrosis Hematuria-controlled Leukocytosis-persistent Anemia-persistent Post blood transfusion Urinary tract infection-clinically seems to be doing well at present Chronic kidney disease Chronic urinary retention-secondary suprapubic catheter Previous history DVT Other diagnoses: Chronic corticosteroid therapy history Hypertension Hyperlipidemia Prostate carcinoma Depression COPD Secondary hyperparathyroidism Complex medical case - Plan Plan:: Plan: Reviewed present treatment regimen-continue same regimen except changes as below Solu-Medrol 40 mg IV now Discontinue Rocephin Talked with patient at length and he agrees with this evaluation and treatment plan
[2017-01-10] MEDS ORDERED: methylPREDNISolone Sodium Succinate 125 MG/2 ML SDV IVPUSH ONE (13:34)
[2017-01-11] MEDS: Omeprazole 20 MG Cap.CR PO SCH ×2 (05:50→06:06)
[2017-01-11 06:10] VITALS: BP 123/65
[2017-01-11] MEDS: Sertraline 50 MG Tab PO SCH (08:23)
[2017-01-11] MEDS: Docusate Sodium 100 MG Cap PO SCH (08:23)
[2017-01-11] MEDS: Nicotine 21 MG/24 Hr Patch TRDERM SCH (08:24)
[2017-01-11] MEDS: guaiFENesin 600 MG Tab.ER PO SCH (08:26)
[2017-01-11] MEDS: Arformoterol 15 MCG/2 ML Neb Soln NEB SCH (08:57)
--- NOTE | 2017-01-12 07:44 | DISCH ---
ADMITTING DIAGNOSIS: Gross hematuria with anemia secondary to prostate cancer. FINAL DIAGNOSES: Prostate cancer with bilateral hydroureteronephrosis with recent suprapubic catheter placement with hematuria, anemia resolved. BRIEF HISTORY AND ESSENTIAL FINDINGS: This is a 76-year-old gentleman who was at home with a Pierce catheter. He notes large amount of blood coming from the catheter with large amount of clots. He was feeling weak. At that time, he presented to the emergency room. At that time, he was found to have a hemoglobin low at 7.7, he is on Coumadin for history of a DVT. His INR was elevated at 7.0. The patient was given vitamin K along with transfused 2 units of packed RBCs. He did improve, then he was placed in swing bed status for rehabilitation. While he was in swing bed, he did also receive a suprapubic catheter and Amicar IV which helped with the hematuria. SIGNIFICANT LABS XRAYS AND CONSULTATION FINDINGS: The patient's CBC on 01/05/2017 showed a white count elevated at 20.7, hemoglobin low at 9.1, INR was 1.2. Chemistry panel at that time showed a sodium slightly low 134, BUN 34, creatinine 2.53, GFR was 25. The patient's alkaline phosphatase was very elevated at 883 albumin low at 1.48. The patient's repeat lab work on 01/10/2017, CBC showed a white count continue to be elevated at 16.7, hemoglobin was stable at 9.4, platelet count was at 268. The patient's absolute neutrophil percentage was slightly elevated at 80.6. The patient's last INR here in the hospital was on 01/07/2017, which was at 1.2. The patient had a chemistry panel on 01/10/2017, which was unremarkable except for BUN, continued to be elevated at 26; creatinine 2.48; GFR was stable at 26. Repeat alkaline phosphatase that was obtained on 01/08/2017 was still elevated at 785. Albumin was low at 1.28. Repeat urinalysis that was obtained on 01/05/2017, continued to show a large amount of blood, few bacteria. The patient had a chest x-ray obtained on 01/06/2017 which the impression reads question of faint infiltrate right middle lobe, read by Andres Lee, otherwise unremarkable. COURSE IN HOSPITAL WITH COMPLICATIONS IF ANY: The patient was admitted. When he was admitted, his hemoglobin was low, he was transfused 2 units packed RBCs. INR was elevated. Coumadin was held, he was given vitamin K. The patient's strength has improved. He was seen and evaluated by physical therapy. The patient did have a suprapubic catheter placed by Dr. Gianfranco Cabrera, sites has been doing well, it has been draining well. Urine is clear on date of discharge. No signs of hematuria. CONDITION TREATMENT AND FINAL DISPOSITION ON DISCHARGE AND PROGNOSIS: Condition is stable. Final disposition will be home. IMPRESSION AND PLAN: 1. History of prostate cancer with bilateral hydroureteronephrosis with recent episode of gross hematuria. Plan: The patient had a suprapubic catheter placed while here in the hospital. He also did get two courses of Amicar. The patient's urine is clear in the Pierce bag today. The patient's last hemoglobin stable at 9.4. The patient's INR is 1.2. The patient seems to be doing well at this time. Suprapubic catheter site looks well. 2. History of deep vein thrombosis to his right lower leg. Plan: We are going to continue to hold patient's Coumadin at this time. His last INR was 1.2. This needs to be revaluated in one week. 3. Chronic Kidney Disease, stage 4. Plan: The patient's GFR has been stable in mid 20 since admission. Continue to monitor. 4. History of chronic obstructive pulmonary disease, patient is a current smoker. Plan: We will send the patient home on Brovana nebulizer twice a day along with DuoNeb as needed. 5. History of hyperlipidemia. Plan: The patient's atorvastatin has been on hold while in the hospital here due to elevated alkaline phosphatase. Restart patient back on atorvastatin 10 mg daily and repeat lab work in one week at followup. 6. History of depression. Plan: Continue with Zoloft 25 mg daily. 7. Pain control. Plan: Continue with hydrocodone as needed. 8. History of gastroesophageal reflux disease. Plan: Continue with omeprazole 20 mg daily. OVERALL PLAN: The patient will follow Lamin Evans in [place] in one week. At that time, obtain INR and reassess if need to restart back on the patient's Coumadin and see if he has any further hematuria at that time. Secondly, reassess the patient's renal panel, monitor patient's GFR, also may repeat patient's liver enzymes along with alkaline phosphatase to monitor his GFR. Restarting atorvastatin has effect on the patient's alkaline phosphatase and liver enzymes. Patient will be sent home with Home Health. Patient needs nursing assists with dressing changes, medications, and assessment of newly placed suprapubic catheter, along with irrigation of his recently placed suprapubic catheter. Patient does have multiple disease conditions. patient has been weak with decreased strength and endurance, along with fatigue. Patient will need in home health nursing assistance. /[id number]/MODL MTDD
== END 2017-01-11 15:45 | disposition home health service (06) | DRG 696 ==
LOC: KA.MS 11:17
PROVIDERS: ADMIT Family Medicine; ATTEND Family Medicine
PROC: 0TPB70Z Removal of Drainage Device from Bladder, Via Natural or Artificial Opening (ICD-10-PCS; 2017-01-05)
PROC: 0T9B30Z Drainage of Bladder with Drainage Device, Percutaneous Approach (ICD-10-PCS; principal; 2017-01-06)
DX: R31.0 Gross hematuria (principal); C61 Malignant neoplasm of prostate; N13.30 Unspecified hydronephrosis; D64.9 Anemia, unspecified; Z79.01 Long term (current) use of anticoagulants; N18.4 Chronic kidney disease, stage 4 (severe); J44.9 Chronic obstructive pulmonary disease, unspecified; E78.5 Hyperlipidemia, unspecified; F32.9 Major depressive disorder, single episode, unspecified; Z79.899 Other long term (current) drug therapy; K21.9 Gastro-esophageal reflux disease without esophagitis; Z86.718 Personal history of other venous thrombosis and embolism; G89.29 Other chronic pain; F17.210 Nicotine dependence, cigarettes, uncomplicated; E21.3 Hyperparathyroidism, unspecified; D72.829 Elevated white blood cell count, unspecified; R33.9 Retention of urine, unspecified
CPT/HCPCS: 00800; 36415; 71010; 80048; 80053; 81001; 85014; 85018; 85025; 85610; 85730; 94640; 97110-GP; 97162-GP; 97530-GP; A9270-GY; J0690; J0696; J1200; J2250; J2704; J2930; J3010; J7030; J7050; J7120; S0017

== ENCOUNTER 2017-01-25 14:15 | Observation (INO) | payer MEDICARE, MEDICAID ==
[2017-01-25] MEDS ORDERED: Sodium Chloride 0.9% 5 ML Syringe FLUSH PRN (14:55)
[2017-01-25] MEDS ORDERED: Sodium Chloride 0.9% 10 ML Syringe FLUSH PRN (15:05)
[2017-01-25] MEDS ORDERED: Bisacodyl 5 MG Tab PO ONE (16:00)
[2017-01-25] MEDS ORDERED: Sodium Chloride 0.9% 1,000 ML IV SCH (17:00)
[2017-01-25] MEDS ORDERED: Acetaminophen/HYDROcodone 325-10 MG Tab PO PRN (17:28)
[2017-01-25] MEDS ORDERED: Albuterol/Ipratropium 3.0-0.5 MG/3 ML Neb Soln NEB PRN (17:29)
[2017-01-26] MEDS: Nicotine 21 MG/24 Hr Patch TRDERM SCH (08:28)
[2017-01-26] MEDS: Sertraline 50 MG Tab PO SCH (08:29)
--- NOTE | 2017-01-26 10:44 | PN ---
01/26/2017 PATIENT NAME: MAHI VILLA CHIEF COMPLAINT: Feels better. No longer short of breath. Has more color to him. Has more strength and energy. BRIEF HISTORY: This 76-year-old gentleman, who was asked to return to the [facility] yesterday for possible admission due to low hemoglobin. He was recently hospitalized for hematuria, had a subsequent suprapubic catheter placed. At one point during his past hospitalization, he did receive a cystoscopy status post cauterization of bleeding blood vessels from his prostate. He has a suprapubic catheter. He did not have any further bleeding. His urine was clear; however, he did receive blood transfusion during his previous hospital stay. Yesterday, at the clinic, he was very pale, weak, dizzy, complains of bloody diarrhea with some tarry stools; however, he did have questionable tarry stools. He was on iron. He did not have any vomiting or nausea, so he was admitted basically for blood transfusion and prepare him for surgery for upper and lower endoscopies. This morning on rounds, the patient was alert and oriented, felt much better. LABORATORY DATA: Hemoglobin yesterday at the clinic was 6.7 status post 2 units of blood transfusion, it is 10.4, with corresponding hematocrit of 31.1, and platelets are 260. RDW, high. White count 14.1. PHYSICAL EXAMINATION: Vital signs; temperature 98.2, heart rate 135/74, heart rate 84, and O2 sats on room air is 97%. SKIN: Less pallor. DIAGNOSTICS: Microbiology: Stool for occult blood x3, all negative. Urological history: Most recent urological consultation in October 2015 due to metastatic prostate CA. Urology is recommending Medical Oncology evaluation at that time; however, the patient has refused. He does have a history of bilateral hydronephrosis along with history of urinary retention. He had refused suprapubic catheter in the past; however, he did agree to having it performed. This was performed on his previous admission. Does have history of anemia with prostate CA and renal disease. He is no longer taking Lupron injections for his prostate CA. Does have a history of DVTs in the right lower extremities two years ago due to edema. He did not have any pulmonary embolism history. He has been on 3 mg of Coumadin up until this past few weeks to months. However, that has been discontinued. He no longer wants his Coumadin due to high irregularities of INR. IMPRESSION/PLAN: 1. Anemia, likely contributing to chronic disease. Iron deficient; however, he does have anisocytosis. We will make the patient n.p.o. He will receive colonoscopy and upper endoscopy tomorrow. Stools have been negative x3. May need bone marrow biopsy. Secondary diagnosis: History of deep vein thrombosis, right common femoral vein. He is no longer on Coumadin per the patient. 2. Tobacco dependency. He is on nicotine patch. 3. Chronic kidney disease. This will be monitored. Baseline creatinine of 2.2 to 2.4. 4. Recent suprapubic catheter due to hematuria that has been corrected. 5. History of bilateral hydronephrosis. He now has a urinary suprapubic catheter in. Secondary diagnoses: Hyperlipidemia, history of hypertension, history of prostate CA, no longer on Lupron. 6. Depression. Seems stable on Zoloft. 7. Secondary hyperparathyroidism. 8. Chronic obstructive pulmonary disease. This appears stable. He has recently been discontinued from his all his medications. CODE STATUS: Do not resuscitate. OVERALL PLAN: N.p.o. Monitor for any hemodynamic instability. He will receive an upper and lower scoping tomorrow by Dr. Gomez Cabrera at [facility]. Possible plan for bone marrow biopsy. /[id number]/MODL
[2017-01-26] MEDS ORDERED: Polyethylene Glycol 3350 Powder 238 GM Bot PO ONE (16:00)
[2017-01-26] MEDS ORDERED: Bisacodyl 5 MG Tab PO ONE (18:00)
[2017-01-27] MEDS: Nicotine 21 MG/24 Hr Patch TRDERM SCH (08:07)
[2017-01-27] MEDS ORDERED: Lactated Ringers 1,000 ML IV SCH (09:00)
[2017-01-27] MEDS ORDERED: Midazolam 1 MG/ML 2 ML SDV ONE (09:12)
[2017-01-27] MEDS ORDERED: Propofol 200 MG/20 ML SDV ONE (09:13)
[2017-01-27] MEDS ORDERED: Ketamine 500 mg/10 ML MDV ONE (09:16)
--- NOTE | 2017-01-27 09:36 | PN ---
01/27/2017 PATIENT NAME: MAHI VILLA CHIEF COMPLAINT: Some nervousness. The patient is undergoing bowel prep for a scheduled endoscopy and colonoscopy this morning. He has been having low hemoglobin. He had a subsequent suprapubic catheter that was placed during previous hospital admission due to gross hematuria. We underwent a cystoscopy and then status post cauterization of bleeding blood vessels from his prostate. His urine has been clear and yellow. He had a hemoglobin less than 7. He was transfused 2 units of packed red blood cells. Hemoglobin 10.4 with hematocrit of 31.1. PHYSICAL EXAMINATION: VITAL SIGNS: All stable. No temperature. Blood pressure adequate. Respiratory rate 20. O2 sats 97%. LUNGS: Slight rhonchus, mainly on his left upper. He will receive a nebulizer before his procedure this morning. MICROBIOLOGY REPORT: Stool for occult blood x3 were negative. GI: Good bowel tones. The patient does have dark stools, however, he is on iron. IMPRESSION AND PLAN: 1. Anemia likely contributing to chronic disease, iron-deficient, with concomitant anisocytosis. He is n.p.o. He underwent bowel prep for pending endoscopy and colonoscopy this morning. We are holding all Coumadin due to history of deep vein thrombosis. 2. Tobacco dependency. He is on nicotine patch. 3. Chronic kidney disease, baseline creatinine 2.2-2.4. 4. Depression, seems stable on Zoloft. 5. Secondary hyperparathyroidism. This is stable. 6. Chronic obstructive pulmonary disease. Albuterol treatment this morning prior to his procedure. He has recently been discontinued from all his respiratory medications. 7. Code status: Do not resuscitate. 8. Overall plan: He will receive an upper endoscopy and a lower colonoscopy this morning. The patient may have to have a bone marrow biopsy. /[id number]/MODL
[2017-01-27] MEDS ORDERED: Propofol 200 MG/20 ML SDV IV ONE (10:15)
[2017-01-27] MEDS ORDERED: Midazolam 1 MG/ML 2 ML SDV IV ONE (10:15)
--- NOTE | 2017-01-27 11:01 | PCM.OPNOTE ---
- General Post-Op/Procedure Note Date of Surgery/Procedure: 01/27/17 Operative Procedure(s): Upper and lower GI endoscopies. Pre Op Diagnosis: Severe anemia. Melena. Rule out gastrointestinal bleeding. Post-Op Diagnosis: Normal colonoscopy. Tell tale evidence of bleeding within the stomach. Mild gastritis. No ulcers or bleeding lesion noted. Anesthesia Technique: MAC Primary Surgeon: Gianfranco Cabrera Complications: None Condition: Good Free Text/Narrative:: INFORMED CONSENT: Patient is here today for elective colonoscopy. All aspects of this procedure have been discussed with the patient. All possible complications also, including possibility of perforation, infection, pain, bleeding and unknown complications. In the event of perforation patient may need to have abdominal exploration, colon resection, colostomy and even was discussed. Anesthetic complications were handled by anesthesia department. The patient understands fully well. Patient did not have any further questions for me at the end of my interview. The patient wishes for me to proceed. PREOPERATIVE DIAGNOSIS/INDICATIONS: [[place]] POSTOPERATIVE DIAGNOSIS: [negative colonoscopy] INSTRUMENT USED: Olympus videocolonoscope. ASA CLASSIFICATION: [2] ANESTHESIA: Continuous EKG, oximetry and intermittent blood pressure and respiratory monitoring were performed throughout the procedure. IV Versed and Fentanyl were administered. PROCEDURE PERFORMED: Colonoscopy POSITIONS OF PATIENT: Left lateral. RECTUM: Normal. SIGMOID COLON: Normal. DESCENDING COLON: Normal. SPLENIC FLEXURE: Normal. TRANSVERSE COLON: Normal. HEPATIC FLEXURE: Normal. ASCENDING COLON: Normal. CECUM: Normal. ILEOCECAL VALVE: Normal. BIOPSY: None. TOLERANCE: Excellent. COMPLICATIONS: None. 01/26/17 01/27/17 01/27/17 22:59 06:59 14:59 Intake Total 300 0 Output Total 450 500 Balance -150 -500 INFORMED CONSENT: Patient is here today for elective upper GI endoscopy. All aspects of this procedure have been discussed with the patient. All possible complications also, including possibility of perforation, infection, pain, bleeding, numbness of the throat, swallowing difficulty and unknown complications. In the event of perforation the patient may need surgical exploration to repair the defect. The patient understands fully well. Patient did not have any further questions for me at the end of my interview. The patient wishes for me to proceed. INSTRUMENT USED: Video gastroscope ANESTHESIA: [MAC] ASA CLASSIFICATION: [2] PROCEDURE PERFORMED: [upper gastrointestinal endoscopy] PHARYNX: Normal. ESOPHAGUS: Normal. Proximal: Normal. Middle: Normal. Lower: Normal. GE Junction: Normal. a 5 cm hiatal hernia was noted without ulceration or other abnormality. STOMACH: Normal. Cardia: Normal. Fundus: Normal. Lesser Curvature: Normal. Greater Curvature: Normal. Antrum: Old blood was seen. The actual source was not visible. no evidence for ulcers, bile gastritis noted. Pylorus: Normal. DUODENUM: Normal. First Part: Normal. Second Part: Normal. Third Part: Normal. RETROFLEXION: Normal. BIOPSY: None. TOLERANCE: Excellent. COMPLICATIONS: None. Final diagnosis: Evidence of blood in the stomach but without an obvious cause. Mild gastritis.
[2017-01-27 12:21] VITALS: BP 137/68
[2017-01-27] MEDS: Sertraline 50 MG Tab PO SCH (14:24)
--- NOTE | 2017-01-28 08:18 | DISCH ---
The patient was admitted in observation on 01/25, discharged from observation 01/27. FINAL DIAGNOSIS: 1. Anemia, likely of chronic disease with concomitant iron deficiency. 2. Tobacco dependency. Continue with nicotine. 3. Chronic kidney disease. 4. Depression, stable on Zoloft. 5. Secondary hyperparathyroidism, stable. 6. Chronic obstructive pulmonary disease, recently discontinued from all his medications. 7. Primary prostate CA, discussion restarting possible Lupron injections. BRIEF HISTORY: This patient who was recently discharged from the hospital due to bloody hematuria with status post suprapubic catheter placement. He had return to the clinic for a followup and a routine hemoglobin recheck. It was noted to be low around 6.7. He was subsequently admitted for blood transfusion and further diagnostic studies. He underwent in the hospital an upper endoscopy and lower endoscopy, quite normal, does have some mild gastritis; however, he did not have any notable active source of bleeding. There was some mild blood in the stomach. HOSPITAL COURSE: Hospital course went well. He had negative stools x3. We will continue with iron. He had 2 units of blood transfusion. His hemoglobin responded and his hematocrit adequately to 10.4. He went through endoscopy and colonoscopy without any complications. He did have an albuterol treatment prior. Vital signs remained stable, afebrile. He did not have any adverse reactions or side effects to any medications and/or treatments. DISPOSITION: The patient will be discharged from the hospital in care of his caregiver. He will have a followup appointment next week. FOLLOW-UP RECOMMENDATIONS: Assess hemoglobin, discuss possible Lupron injections. No medication changes and/or adjustments upon discharge. MEDICAL DECISION MAKIN minutes was spent on this discharge planning and process. /[id number]/MODL
== END 2017-01-27 13:55 | disposition home or self-care (01) ==
LOC: KA.MS 14:15
PROVIDERS: ADMIT Nurse Practitioner Family; ATTEND Family Medicine
DX: K29.70 Gastritis, unspecified, without bleeding (principal); K44.9 Diaphragmatic hernia without obstruction or gangrene; F32.9 Major depressive disorder, single episode, unspecified; J44.9 Chronic obstructive pulmonary disease, unspecified; E21.1 Secondary hyperparathyroidism, not elsewhere classified; Z72.0 Tobacco use; Z79.899 Other long term (current) drug therapy; Z98.890 Other specified postprocedural states; F17.210 Nicotine dependence, cigarettes, uncomplicated
CPT/HCPCS: 36415; 36430; 43235; 45378; 80048; 82270; 85025; 86850; 86900; 86901; 86920; 86922; 94640; A9270; G0378; G0379; J2250; J2704; J7030; J7120; P9016; 00740; 00810

== ENCOUNTER 2017-03-07 15:30 | Inpatient (IN) | payer MEDICARE, MEDICAID ==
--- NOTE | 2017-03-07 16:05 | EDM.PDOC ---
ED HPI GENERAL MEDICAL PROBLEM - General Chief Complaint: General Stated Complaint: ? GI BLEED Time Seen by Provider: 03/07/17 15:56 Source of Information: Reports: Patient History Limitations: Reports: No Limitations - History of Present Illness INITIAL COMMENTS - FREE TEXT/NARRATIVE: PT STATES HE WAS RELEASED FROM [facility] 01/27/17 AND HAS PROGRESSIVELY BECOME MORE WEAK. SEEN BY PCP THIS WEEK AND FOUND TO HAVE HGB OF 7.0. STATES HE HAS BLACK DIARRHEA STOOLS BUT DOES TAKE PEPTO-BISMOL. MINIMAL ABD CRAMPING, BUT DENIES FEVER, CP, SOB, DARK URINE, STOUT, OR SYNCOPY EPISODE. Onset: Gradual Duration: Week(s):, Getting Worse Quality: Reports: Other (TIRED) Severity: Mild Improves with: Reports: None Worsens with: Reports: None Associated Symptoms: Reports: Cough, Loss of Appetite, Malaise, Nausea/Vomiting , Weakness. Denies: Confusion, Chest Pain, cough w sputum, Diaphoresis, Fever/ Chills, Headaches, Rash, Shortness of Breath, Syncope - Related Data Allergies Allergy/AdvReac Type Severity Reaction Status Date / Time aminocaproic acid Allergy Rash Verified 03/07/17 16:37 [From Amicar] Home Meds: Home Meds Hydrocodone/Acetaminophen [[place] 10-325] 1 each PO Q6H PRN 03/11/15 [History] Sertraline [Zoloft] 25 mg PO DAILY 03/11/15 [History] Ferrous Sulfate 325 mg PO BID 01/26/17 [History] Furosemide [Lasix] 40 mg PO Q48H PRN 01/26/17 [History] Past Medical History HEENT History: Reports: Hard of Hearing Cardiovascular History: Reports: Blood Clots/VTE/DVT, High Cholesterol, Other ( See Below) Other Cardiovascular History: Edema. Respiratory History: Reports: COPD Other Respiratory History: Current smoker. Genitourinary History: Reports: Prostate Disorder, Other (See Below) Other Genitourinary History: chronic kidney disease, prostate cancer, suprapubic catheter. Musculoskeletal History: Reports: Arthritis, Other (See Below) Other Musculoskeletal History: Chronic shoulder pain Neurological History: Reports: Vertigo Psychiatric History: Reports: Anxiety, Depression Hematologic History: Reports: Anticoagulation Therapy, Blood Transfusion(s) Oncologic (Cancer) History: Reports: Prostate Dermatologic History: Reports: Other (See Below) Other Dermatologic History: Scab to right forearm. - Infectious Disease History Infectious Disease History: Reports: Chicken Pox, Influenza, Measles, Mumps - Past Surgical History HEENT Surgical History: Reports: Cataract Surgery Male Surgical History: Reports: Suprapubic Catheter Placement, Other (See Below) Other Male Surgeries/Procedures: Cytoscopy. Social & Family History - Family History Family Medical History: Noncontributory HEENT: Reports: None Cardiac: Reports: Other (See Below) Respiratory: Reports: None GI: Reports: None : Reports: None OBGYN: Reports: None Musculoskeletal: Reports: None Neurological: Reports: None Psychiatric: Reports: None Endocrine/Metabolic: Reports: None Hematologic: Reports: None Immunologic: Reports: None Dermatologic: Reports: None Oncologic: Reports: None - Tobacco Use Smoking Status *Q: Current Every Day Smoker Years of Tobacco use: 65 Packs/Tins Daily: 1.5 Used Tobacco, but Quit: No Second Hand Smoke Exposure: Yes - Caffeine Use Caffeine Use: Reports: Coffee, Soda Caffeine Use Comment: coffee daily, seldom soda - Alcohol Use Days Per Week of Alcohol Use: 1 Number of Drinks Per Day: 2 Total Drinks Per Week: 2 - Recreational Drug Use Recreational Drug Use: No ED ROS GENERAL - Review of Systems Review Of Systems: ROS reveals no pertinent complaints other than HPI. Constitutional: Reports: Weakness, Fatigue, Decreased Appetite HEENT: Reports: No Symptoms Respiratory: Reports: Cough. Denies: Sputum Cardiovascular: Reports: No Symptoms Endocrine: Reports: No Symptoms GI/Abdominal: Reports: Abdominal Pain, Black Stool, Diarrhea, Nausea. Denies: Mucous in Stool, Vomiting : Reports: No Symptoms, Other (HAS SUPRAPUBIC CATH) Musculoskeletal: Reports: No Symptoms Skin: Reports: No Symptoms Neurological: Reports: No Symptoms Psychiatric: Reports: No Symptoms Hematologic/Lymphatic: Reports: Anemia, Easy Bruising Immunologic: Reports: No Symptoms ED EXAM, GENERAL - Physical Exam Exam: See Below Exam Limited By: No Limitations General Appearance: Alert, WD/WN, No Apparent Distress Eye Exam: Bilateral Eye: Normal Inspection Nose: Normal Inspection, Normal Mucosa, No Blood Throat/Mouth: Normal Inspection, Normal Oropharynx, Normal Voice, No Airway Compromise Head: Atraumatic, Normocephalic Neck: Normal Inspection, Supple Respiratory/Chest: No Respiratory Distress, No Accessory Muscle Use, Chest Non- Tender, Rales (BILAT) Cardiovascular: Regular Rate, Rhythm, No Murmur GI/Abdominal: Normal Bowel Sounds, Soft, Non-Tender, No Organomegaly, No Distention, No Abnormal Bruit, No Mass (Male) Exam: Other (SUPRAPUBIC URINARY CATH SITE WITHOUT ERYTHEMA OR D/C) Back Exam: Normal Inspection. No: CVA Tenderness (L), CVA Tenderness (R) Extremities: Normal Inspection, No Pedal Edema Neurological: Alert, Oriented, Normal Cognition Psychiatric: Normal Affect, Normal Mood Skin Exam: Warm, Dry, Intact, Normal Color, No Rash Lymphatic: No Adenopathy Course - Orders/Labs/Meds Orders: Active Orders 24 hr Category Date Time Status Chest 2V [CR] Stat Exams 03/07/17 15:56 Ordered CBC WITH AUTO DIFF [HEME] Stat Lab 03/07/17 15:56 Ordered COMPREHENSIVE METABOLIC PN,CMP [CHEM] Stat Lab 03/07/17 15:56 Ordered INR,PT,PROTHROMBIN TIME [COAG] Stat Lab 03/07/17 15:56 Ordered PTT,PARTIAL THROMBOPLSTIN TIME [COAG] Stat Lab 03/07/17 15:56 Ordered UA W/MICROSCOPIC [URIN] Stat Lab 03/07/17 15:56 Uncollected - Re-Assessments/Exams Free Text/Narrative Re-Assessment/Exam: 03/07/17 18:03 PT AFEBRILE, NONTOXIC APPEARING, VSS. DISCUSSED CASE WITH KAITLYNN ALAMO, [facility]. REQUESTED NEPHROLOGY CONSULT PRIOR TO ADMIT. DISCUSSED IN LENGTH CASE WITH DR RUIZ, HOG RINGER AT [facility]. ADVISED IV FLUIDS WITH BICARB, US OF KIDNEYS IN AM, ABX FOR UTI, AND ADMIT WITH AM LABS TO EVALUATE RENAL FUNCTION AND DETERMINATION OF STATUS. KAITLYNN ALAMO WILL ACCEPT ADMIT AND FOLLOW Departure - Departure Time of Disposition: 18:08 Disposition: Admitted As Inpatient 64 Condition: Fair Clinical Impression: UTI, Urinary tract infectious disease Anemia Qualifiers: Anemia type: iron deficiency Iron deficiency anemia type: chronic blood loss Qualified Code(s): D50.0 - Iron deficiency anemia secondary to blood loss ( chronic) Renal failure (ARF), acute on chronic Qualifiers: Acute renal failure type: unspecified Chronic kidney disease stage: stage 4 ( severe) Qualified Code(s): N17.9 - Acute kidney failure, unspecified; N18.4 - Chronic kidney disease, stage 4 (severe) - Discharge Information - My Orders Last 24 Hours: My Active Orders 03/07/17 15:56 Chest 2V [CR] Stat CBC WITH AUTO DIFF [HEME] Stat COMPREHENSIVE METABOLIC PN,CMP [CHEM] Stat INR,PT,PROTHROMBIN TIME [COAG] Stat PTT,PARTIAL THROMBOPLSTIN TIME [COAG] Stat UA W/MICROSCOPIC [URIN] Stat - Assessment/Plan Last 24 Hours: My Active Orders 03/07/17 15:56 Chest 2V [CR] Stat CBC WITH AUTO DIFF [HEME] Stat COMPREHENSIVE METABOLIC PN,CMP [CHEM] Stat INR,PT,PROTHROMBIN TIME [COAG] Stat PTT,PARTIAL THROMBOPLSTIN TIME [COAG] Stat UA W/MICROSCOPIC [URIN] Stat
[2017-03-07] MEDS ORDERED: Ondansetron 4 MG/2 ML SDV IVPUSH ONE (16:55)
[2017-03-07] MEDS ORDERED: cefTRIAXone 1 GM Vial IVPUSH ONE (17:09)
[2017-03-07] MEDS ORDERED: Sodium Chloride 0.9% 5 ML Syringe FLUSH PRN (17:31)
--- NOTE | 2017-03-07 19:42 | PCM.HP ---
H&P History of Present Illness - General Date of Service: 03/07/17 Admit Problem/Dx: Admission Diagnosis/Problem Admission Diagnosis/Problem Renal failure Source of Information: Old Records, Provider History Limitations: Reports: No Limitations - History of Present Illness Initial Comments - Free Text/Narative: This 76-year-old gentleman was admitted through the emergency department after he came in due to weakness. Patient was recently in the hospital about one month ago and was discharged with a final diagnoses of anemia likely due to chronic disease as he did have a normal colonoscopy however gastritis was revealed with old blood in an upper endoscopy. He does have a history of anemia with multiple blood transfusions, tobacco dependency, chronic kidney disease in which is BUN/creatinine is quite elevated on admission acutely. Suffers from depression, secondary hyperparathyroidism, COPD however refuses any medications for this. He also has primary prostate CA which he recently started back on his Lupron injections. He was on iron however about 5 days ago he discontinued this. He does admit to multiple dark coffee-ground material blood in appearance loose stools over the past few days. He does not have any abdominal pain however he has had significant nausea without vomiting. His recent hemoglobin was 7.0. - Related Data Allergies/Adverse Reactions: Allergies Allergy/AdvReac Type Severity Reaction Status Date / Time aminocaproic acid Allergy Rash Verified 03/07/17 16:37 [From Amicar] Home Medications: Home Meds Hydrocodone/Acetaminophen [[place] 10-325] 1 each PO Q6H PRN 03/11/15 [History] Sertraline [Zoloft] 25 mg PO DAILY 03/11/15 [History] Ferrous Sulfate 325 mg PO BID 01/26/17 [History] Furosemide [Lasix] 40 mg PO Q48H PRN 01/26/17 [History] Past Medical History HEENT History: Reports: Hard of Hearing Cardiovascular History: Reports: Blood Clots/VTE/DVT, High Cholesterol, Other ( See Below) Other Cardiovascular History: Edema. Respiratory History: Reports: COPD Other Respiratory History: Current smoker. Gastrointestinal History: Reports: Other (See Below) Other Gastrointestinal History: currently has diarrhea, poor appetite Genitourinary History: Reports: Prostate Disorder, Other (See Below) Other Genitourinary History: chronic kidney disease, prostate cancer, suprapubic catheter. Musculoskeletal History: Reports: Arthritis, Other (See Below) Other Musculoskeletal History: Chronic shoulder pain Neurological History: Reports: Vertigo Psychiatric History: Reports: Anxiety, Depression Hematologic History: Reports: Anticoagulation Therapy, Blood Transfusion(s) Oncologic (Cancer) History: Reports: Prostate Dermatologic History: Reports: Other (See Below) Other Dermatologic History: Scab to right forearm. - Infectious Disease History Infectious Disease History: Reports: Chicken Pox, Influenza, Measles, Mumps - Past Surgical History HEENT Surgical History: Reports: Cataract Surgery Male Surgical History: Reports: Suprapubic Catheter Placement, Other (See Below) Other Male Surgeries/Procedures: Cytoscopy. Social & Family History - Family History Family Medical History: Noncontributory HEENT: Reports: None Cardiac: Reports: Other (See Below) Respiratory: Reports: None GI: Reports: None : Reports: None OBGYN: Reports: None Musculoskeletal: Reports: None Neurological: Reports: None Psychiatric: Reports: None Endocrine/Metabolic: Reports: None Hematologic: Reports: None Immunologic: Reports: None Dermatologic: Reports: None Oncologic: Reports: None - Tobacco Use Smoking Status *Q: Current Every Day Smoker Years of Tobacco use: 65 Packs/Tins Daily: 1.5 Used Tobacco, but Quit: No Second Hand Smoke Exposure: Yes - Caffeine Use Caffeine Use: Reports: Coffee, Soda Caffeine Use Comment: coffee daily, seldom soda - Alcohol Use Days Per Week of Alcohol Use: 1 Number of Drinks Per Day: 2 Total Drinks Per Week: 2 - Recreational Drug Use Recreational Drug Use: No H&P Review of Systems - Review of Systems: Review Of Systems: See Below General: Reports: Weakness, Fatigue, Decreased Appetite. Denies: Fever, Night Sweats HEENT: Reports: No Symptoms Pulmonary: Reports: Cough, Sputum Cardiovascular: Reports: Dyspnea on Exertion. Denies: Chest Pain, Orthopnea, Edema, Syncope, Blood Pressure Problem Gastrointestinal: Reports: Anorexia, Black Stool, Bloody Stool, Diarrhea, Decreased Appetite, Nausea. Denies: Abdominal Pain, Constipation, Difficulty Swallowing, Distension, Mucous in Stool, Vomiting Genitourinary: Reports: Other (Suprapubic catheter). Denies: Flank Pain Musculoskeletal: Reports: No Symptoms Skin: Reports: Bruising Psychiatric: Reports: No Symptoms Neurological: Reports: No Symptoms Hematologic/Lymphatic: Reports: Anemia, Easy Bleeding, Easy Bruising Immunologic: Reports: No Symptoms Exam - Exam Exam: See Below - Vital Signs Vital Signs: Last Vital Signs Temp 98.8 F 03/07/17 18:06 Pulse 104 H 03/07/17 18:06 Resp 24 H 03/07/17 18:06 BP 175/95 H 03/07/17 18:06 Pulse Ox 100 03/07/17 18:06 Weight: 156 lb - Exam Quality Assessment: No: Supplemental Oxygen General: Cooperative HEENT: Conjunctiva Clear, Hearing Intact Neck: No: Lymphadenopathy Lungs: Rhonchi Cardiovascular: Regular Rate, Regular Rhythm, Normal S1, Normal S2 GI/Abdominal Exam: No Distention, Other (Very poor bowel tones). No: Distended , Rigid, Rebound, Tender, Hepatomegaly (Male) Exam: Deferred Rectal (Males) Exam: Other (Positive occult blood ED) Back Exam: No: CVA Tenderness (L), CVA Tenderness (R) Neurological: Strength Equal Bilateral, Normal Speech Neuro Extensive - Mental Status: Alert, Oriented x3, Normal Mood/Affect, Normal Cognition Psychiatric: Alert, Normal Affect, Normal Mood - Patient Data Result Diagrams: 03/08/17 07:10 03/08/17 07:10 *Q Meaningful Use (ADM) - VTE *Q VTE Criteria *Q: - Stroke *Q Stroke Criteria *Q: - AMI *Q AMI Criteria *Q: Problem List Initiated/Reviewed/Updated: Yes Orders Last 24hrs: Medication Orders Sodium Chloride (Syrex Flush) 5 ml FLUSH Q8HR PRN PRN Reason: Keep Vein Open Assessment/Plan Comment:: This 76-year-old gentleman was admitted through the emergency department after he came in due to weakness. Patient was recently in the hospital about one month ago and was discharged with a final diagnoses of anemia likely due to chronic disease as he did have a normal colonoscopy however gastritis was revealed with old blood in an upper endoscopy. He does have a history of anemia with multiple blood transfusions, tobacco dependency, chronic kidney disease in which is BUN/creatinine is quite elevated on admission acutely. Suffers from depression, secondary hyperparathyroidism, COPD however refuses any medications for this. He also has primary prostate CA which he recently started back on his Lupron injections. He was on iron however about 5 days ago he discontinued this. He does admit to multiple dark coffee-ground material blood in appearance loose stools over the past few days. He does not have any abdominal pain however he has had significant nausea without vomiting. His recent hemoglobin was 7.0. Diagnostics Chest x-ray, evidence of COPD EGD January 2017; official report demonstrates "Evidence of blood in the stomach but without an obvious cause. Mild gastritis." Colonoscopy, January 2017, normal colonoscopy CODE STATUS, DO NOT RESUSCITATE Impression/plan Anemia, normocytic, normochromic, anisocytosis, likely combination of ACD, VIPUL and chronic GI blood loss. Holding iron. Transfuse 1 unit tonight. Acute kidney injury, likely ATN due to GI hemoglobin loss, isotonic saline with bicarbonate overnight. Avoid nephrotoxins agents including CT contrast for tonight. Reactive thrombocytosis, we'll start Rocephin for urinary tract infection, likely will need suprapubic catheter change Urinary tract infection, Rocephin 1 g Elevation of ALP; significant at 1200 without major rise in AST/ALT, possible biliary origin however no abdominal pain. Hold off on CT/imaging due to ROLAN and reassess in a.m. Nothing by mouth tonight Gastritis, Mild as noted on recent EGD, started PPI last night. COPD, refuses home medications Prostate CA, now back on Lupron injections--possible contributory to ALP rise Nausea, Zofran. Tobacco dependency, 21 mg transdermal patch Depression, stable on Zoloft Overall plan, fluids tonight with bicarbonate. Reassess a.m. labs, nothing by mouth tonight. Likely will need to be transferred repeat colonoscopy/EGD. Hold off on contrast tonight due to significant elevated ROLAN. Avoid all nephrotoxins.
[2017-03-07] MEDS ORDERED: Sodium Chloride 0.9% 1,000 ML IV SCH (20:00)
[2017-03-07] MEDS ORDERED: cefTRIAXone 1 GM Vial ONE (20:01)
[2017-03-07] MEDS ORDERED: Sodium Chloride 0.9% 500 ML ONE (20:16)
[2017-03-07] MEDS: Nicotine 21 MG/24 Hr Patch TRDERM SCH (22:49)
[2017-03-08] MEDS ORDERED: Pantoprazole 40 MG Vial ONE (02:20)
[2017-03-08] MEDS ORDERED: Ondansetron 4 MG/2 ML SDV ONE (02:20)
[2017-03-08] MEDS: Ondansetron 4 MG/2 ML SDV IVPUSH PRN ×2 (02:28→15:37)
[2017-03-08] MEDS ORDERED: Sertraline 50 MG Tab PO SCH (09:00)
[2017-03-08] MEDS ORDERED: Pantoprazole 40 MG Vial IVPUSH SCH (09:00)
--- NOTE | 2017-03-08 10:13 | PCM.DCSUM1 ---
Discharge Summary - Hospital Course Brief History: This 76-year-old gentleman was admitted through the emergency department after he came in due to weakness. Patient was recently in the hospital about one month ago and was discharged with a final diagnoses of anemia likely due to chronic disease as he did have a normal colonoscopy however gastritis was revealed with old blood in an upper endoscopy. He does have a history of anemia with multiple blood transfusions, tobacco dependency, chronic kidney disease in which is BUN/creatinine is quite elevated on admission acutely. Suffers from depression, secondary hyperparathyroidism, COPD however refuses any medications for this. He also has primary prostate CA which he recently started back on his Lupron injections. He was on iron however about 5 days ago he discontinued this. He does admit to multiple dark coffee- ground material blood in appearance loose stools over the past few days. He does not have any abdominal pain however he has had significant nausea without vomiting. His recent hemoglobin was 7.0. - Discharge Data Discharge Date: 03/08/17 Discharge Disposition: DC/Tfer to Acute Hospital 02 Condition: Stable - Patient Summary/Data Complications: No complications other than some mild nausea during the middle the night. He was hemodynamically stable throughout the night. Consults: ED provider consulted with Dr Dinero--television cabinet finisher who recommended normal saline with additional bicarbonate added for acute renal injury Hospital Course: Patient was an only in the hospital overnight. He received IV fluids with bicarbonate isotonic saline. Rocephin was given in the ED. He remained stable other than mild nausea which improved somewhat on Zofran. He was kept nothing by mouth. Never ran a fever. He was given 1 unit of blood transfusion overnight and again this morning prior to transfer. Hemoglobin responded to 7.9 after the first unit. His alkaline phosphatase decreased from 1200 to 1063 overnight. With slightly improved renal indices. Leukocytosis improved, white count came down slightly. Consulted with hospitalist this morning and he does recommend patient may need further imaging and EGD/colonoscopy. He agreed for transfer upon bed availability at [place] - Discharge Plan Home Medications: Home Meds Hydrocodone/Acetaminophen [[place] 10-325] 1 each PO Q6H PRN 03/11/15 [History] Sertraline [Zoloft] 25 mg PO DAILY 03/11/15 [History] Ferrous Sulfate 325 mg PO BID 01/26/17 [History] Furosemide [Lasix] 40 mg PO Q48H PRN 01/26/17 [History] - Discharge Summary/Plan Comment DC Time >30 min.: Yes Discharge Summary/Plan Comment: FINAL DIAGNOSIS Anemia Acute kidney injury/ATN Urinary tract infection Reactive thrombocytosis Elevation and ALP Gastritis Hypoalbuminemia COPD Prostate CA Tobacco dependency Depression - Patient Data Vitals - Most Recent: Last Vital Signs Temp 97.1 F 03/08/17 06:21 Pulse 69 03/08/17 06:21 Resp 16 03/08/17 06:21 BP 149/75 H 03/08/17 06:21 Pulse Ox 99 03/08/17 06:45 Weight - Most Recent: 156 lb I&O - Last 24 hours: Intake & Output 03/07/17 03/08/17 03/08/17 22:59 06:59 14:59 Intake Total 589 749 Output Total 300 275 Balance 289 474 Lab Results - Last 24 hrs: Laboratory Results - last 24 hr 03/08/17 03/08/17 03/08/17 Range/Units 07:10 07:10 07:10 WBC 15.4 H (5.0-10.0) 10^3/uL RBC 2.80 L (4.50-6.00) 10^6/uL Hgb 7.9 L (13.0-17.0) g/dL Hct 23.7 L (40.0-52.0) % MCV 84.6 (82.0-92.0) fL MCH 28.3 (27.0-31.0) pg MCHC 33.4 (32.0-36.0) g/dL RDW 15.4 H (11.5-14.5) % Plt Count 365 H (150-300) 10^3/uL MPV 7.8 (7.4-10.4) fL Neut % (Auto) 84.8 H (50.0-70.0) % Lymph % (Auto) 9.7 L (20.0-40.0) % [place] % (Auto) 4.1 (2.0-8.0) % Eos % (Auto) 0.5 L (1.0-3.0) % Baso % (Auto) 0.9 (0.0-1.0) % Neut # (Auto) 13.1 H (2.5-7.0) 10^3/uL Lymph # (Auto) 1.5 (1.0-4.0) 10^3/uL [place] # (Auto) 0.6 (0.1-0.8) 10^3/uL Eos # (Auto) 0.1 (0.1-0.3) 10^3/uL Baso # (Auto) 0.1 (0.0-0.1) 10^3/uL PT 12.7 H (8.9-11.4) SEC INR 1.2 H (0.9-1.1) Sodium 139 (136-145) mmol/L Potassium 5.3 (3.3-5.3) mmol/L Chloride 108 (98-115) mmol/L Carbon Dioxide 14.3 L (21.0-32.0) mmol/L BUN 106 H* (6-25) mg/dL Creatinine 4.42 H (0.51-1.17) mg/dL Est Cr Clr Drug Dosing 13.79 mL/min Estimated GFR (MDRD) 13 mL/min Glucose 64 L (70-110) mg/dL Calcium 6.8 L (8.7-10.3) mg/dL Total Bilirubin 0.4 (0.2-1.0) mg/dL Direct Bilirubin 0.1 (0.0-0.2) mg/dL AST 44 H (15-37) U/L ALT 20 (12-78) U/L Alkaline Phosphatase 1063 H (46-116) IU/L Total Protein 5.1 L (6.4-8.2) g/dL Albumin 1.56 L (3.00-4.80) g/dL Med Orders - Current: Current Medications Sodium Chloride (Normal Saline) 1,000 mls @ 100 mls/hr IV ASDIRECTED [facility] Nicotine (Habitrol) 21 mg TRDERM DAILY ANI Last Admin: 03/07/17 22:49 Dose: 21 mg Ondansetron HCl (Zofran) 4 mg IVPUSH Q4H PRN PRN Reason: Nausea/Vomiting Last Admin: 03/08/17 02:28 Dose: 4 mg Pantoprazole Sodium (Protonix Iv) 40 mg IVPUSH DAILY@1700 [facility] Sertraline HCl (Zoloft) 25 mg PO DAILY [facility] Sodium Chloride (Syrex Flush) 5 ml FLUSH Q8HR PRN PRN Reason: Keep Vein Open Discontinued Medications Ceftriaxone Sodium (Rocephin) 1 gm IVPUSH ONETIME ONE Stop: 03/07/17 17:10 Last Admin: 03/07/17 20:09 Dose: Not Given Ceftriaxone Sodium (Rocephin) Confirm Administered Dose 1 gm .ROUTE .STK-MED ONE Stop: 03/07/17 20:02 Last Admin: 03/07/17 20:09 Dose: 1 gm Sodium Chloride (Normal Saline) Confirm Administered Dose 500 mls @ as directed .ROUTE .STK-MED ONE Stop: 03/07/17 20:17 Last Admin: 03/07/17 22:16 Dose: 500 ml Sodium Bicarbonate 75 meq/ (Sodium Chloride) 1,075 mls @ 100 mls/hr IV ONETIME ONE Stop: 03/08/17 09:45 Last Admin: 03/08/17 00:38 Dose: 100 mls/hr Ondansetron HCl (Zofran) 4 mg IVPUSH ONETIME ONE Stop: 03/07/17 16:56 Last Admin: 03/07/17 17:30 Dose: 4 mg Ondansetron HCl (Zofran) Confirm Administered Dose 4 mg .ROUTE .STK-MED ONE Stop: 03/08/17 02:21 Last Admin: 03/08/17 02:48 Dose: Not Given Pantoprazole Sodium (Protonix Iv) 40 mg IVPUSH DAILY ANI Last Admin: 03/08/17 02:35 Dose: 40 mg Pantoprazole Sodium (Protonix Iv) Confirm Administered Dose 40 mg .ROUTE .STK -MED ONE Stop: 03/08/17 02:21 Last Admin: 03/08/17 02:49 Dose: Not Given *Q Meaningful Use (DIS) - VTE *Q VTE Criteria *Q: - Stroke *Q Stroke Criteria *Q: - AMI *Q AMI Criteria *Q:
[2017-03-08] MEDS: Nicotine 21 MG/24 Hr Patch TRDERM SCH (11:09)
[2017-03-08] MEDS ORDERED: Sodium Chloride 0.9% 1,000 ML IV SCH (15:00)
[2017-03-08 15:13] VITALS: BP 149/75
[2017-03-09] MEDS ORDERED: Pantoprazole 40 MG Vial IVPUSH SCH (17:00)
== END 2017-03-08 15:55 | DRG 812 ==
LOC: KA.ED 15:30 → KA.MS 18:06
PROVIDERS: ADMIT Physician Assistant Surgical; ATTEND Nurse Practitioner Family
PROC: 30253N1 (ICD-10-PCS; principal; 2017-03-07)
DX: D50.0 Iron deficiency anemia secondary to blood loss (chronic) (principal); N39.0 Urinary tract infection, site not specified; N17.9 Acute kidney failure, unspecified; N18.4 Chronic kidney disease, stage 4 (severe); D63.8 Anemia in other chronic diseases classified elsewhere; F32.9 Major depressive disorder, single episode, unspecified; E21.3 Hyperparathyroidism, unspecified; C61 Malignant neoplasm of prostate; F17.210 Nicotine dependence, cigarettes, uncomplicated; J44.9 Chronic obstructive pulmonary disease, unspecified; K29.70 Gastritis, unspecified, without bleeding; Z66 Do not resuscitate; Z85.46 Personal history of malignant neoplasm of prostate
CPT/HCPCS: 36415; 36430; 71020; 80048; 80053; 80076; 81003; 82272; 83690; 85025; 85610; 85730; 86850; 86900; 86901; 86920; 86922; 96374; 99285; A9270-GY; C9113; J0696; J2405; J7030; J7040; P9016

== ENCOUNTER 2017-03-20 18:05 | Observation (INO) | payer MEDICARE, MEDICAID ==
[2017-03-20] MEDS ORDERED: Sodium Chloride 0.9% 1,000 ML IV SCH ×2 (19:00→20:30)
[2017-03-20] MEDS ORDERED: Sodium Chloride 0.9% 1,000 ML IV ONE (19:19)
[2017-03-20] MEDS ORDERED: Sodium Chloride 0.9% 5 ML Syringe FLUSH PRN ×2 (19:19→20:24)
[2017-03-20 19:23] LABS: CHLORIDE,CL 104 mmol/L (98-115); SODIUM,NA 137 mmol/L (136-145)
--- NOTE | 2017-03-20 19:28 | EDM.PDOC ---
ED HPI GENERAL MEDICAL PROBLEM - General Chief Complaint: General Stated Complaint: RECTAL BLEEDING Time Seen by Provider: 03/20/17 19:00 Source of Information: Reports: Patient, EMS, Long Term Records History Limitations: Reports: No Limitations - History of Present Illness INITIAL COMMENTS - FREE TEXT/NARRATIVE: 76 YO WM under hospice care who [facility]. Pt reports 3 episodes of BRBPR. Pt reports symptoms started approximately 1 hour ago. Pt reports previous episodes of bleeding requiring blood transfusion. Pt denies any chest pain, shortness of breath or weakness at this time. Onset: Sudden Onset Date: 03/20/17 Duration: Hour(s): (1) Location: Reports: Abdomen Quality: Reports: Other (intermittent 'cramping ) Severity: Mild Improves with: Reports: None Worsens with: Reports: None Associated Symptoms: Reports: No Other Symptoms, Weakness. Denies: Chest Pain, Diaphoresis, Fever/Chills, Nausea/Vomiting, Rash, Shortness of Breath, Syncope Left Pain Score (Numeric/FACES): 9 - Related Data Allergies Allergy/AdvReac Type Severity Reaction Status Date / Time aminocaproic acid Allergy Rash Verified 03/07/17 16:37 [From Amicar] Home Meds: Home Meds Sertraline [Zoloft] 25 mg PO DAILY 03/11/15 [History] Acetaminophen [Tactinal] 325 mg PO Q4H 03/20/17 [History] Bisacodyl [Dulcolax] 5 mg PO BID 03/20/17 [History] Bisacodyl [Dulcolax] 10 mg RECTAL DAILY PRN 03/20/17 [History] Docusate Sodium [Colace] 100 mg PO TID PRN 03/20/17 [History] Haloperidol [Haldol] 5 mg PO Q6H PRN 03/20/17 [History] Hyoscyamine Sulfate [Levsin] 0.125 mg PO Q4H PRN 03/20/17 [History] Morphine Sulfate Concentrate 2.5 mg BUCCAL Q4H PRN 03/20/17 [History] Ondansetron [Zofran] 4 mg PO TID PRN 03/20/17 [History] Sennosides/Docusate Sodium [Senna-Docusate Sodium Tablet] 1 each PO BID 08/12/ 17 [History] Past Medical History HEENT History: Reports: Hard of Hearing Cardiovascular History: Reports: Blood Clots/VTE/DVT, High Cholesterol, Other ( See Below) Other Cardiovascular History: Edema. Respiratory History: Reports: COPD Other Respiratory History: Current smoker. Gastrointestinal History: Reports: Other (See Below) Other Gastrointestinal History: currently has diarrhea, poor appetite Genitourinary History: Reports: Prostate Disorder, Other (See Below) Other Genitourinary History: chronic kidney disease, prostate cancer, suprapubic catheter. Musculoskeletal History: Reports: Arthritis, Other (See Below) Other Musculoskeletal History: Chronic shoulder pain Neurological History: Reports: Vertigo Psychiatric History: Reports: Anxiety, Depression Hematologic History: Reports: Anticoagulation Therapy, Blood Transfusion(s) Oncologic (Cancer) History: Reports: Prostate Dermatologic History: Reports: Other (See Below) Other Dermatologic History: Scab to right forearm. - Infectious Disease History Infectious Disease History: Reports: Chicken Pox, Influenza, Measles, Mumps - Past Surgical History HEENT Surgical History: Reports: Cataract Surgery Male Surgical History: Reports: Suprapubic Catheter Placement, Other (See Below) Other Male Surgeries/Procedures: Cytoscopy. Social & Family History - Family History Family Medical History: Noncontributory HEENT: Reports: None Cardiac: Reports: Other (See Below) Respiratory: Reports: None GI: Reports: None : Reports: None OBGYN: Reports: None Musculoskeletal: Reports: None Neurological: Reports: None Psychiatric: Reports: None Endocrine/Metabolic: Reports: None Hematologic: Reports: None Immunologic: Reports: None Dermatologic: Reports: None Oncologic: Reports: None - Tobacco Use Smoking Status *Q: Current Every Day Smoker Years of Tobacco use: 65 Packs/Tins Daily: 1.5 Used Tobacco, but Quit: No Second Hand Smoke Exposure: No - Caffeine Use Caffeine Use: Reports: Coffee, Soda Caffeine Use Comment: coffee daily, seldom soda - Alcohol Use Days Per Week of Alcohol Use: 1 Number of Drinks Per Day: 2 Total Drinks Per Week: 2 - Recreational Drug Use Recreational Drug Use: No ED ROS GENERAL - Review of Systems Review Of Systems: See Below Constitutional: Reports: No Symptoms HEENT: Reports: No Symptoms Respiratory: Reports: No Symptoms Cardiovascular: Reports: No Symptoms Endocrine: Reports: No Symptoms GI/Abdominal: Reports: Hematochezia : Reports: No Symptoms Musculoskeletal: Reports: No Symptoms Skin: Reports: No Symptoms Neurological: Reports: No Symptoms Psychiatric: Reports: No Symptoms Hematologic/Lymphatic: Reports: No Symptoms Immunologic: Reports: No Symptoms ED EXAM, GENERAL - Physical Exam Exam: See Below Exam Limited By: No Limitations General Appearance: Alert, WD/WN, No Apparent Distress Throat/Mouth: Normal Inspection, Normal Lips, Normal Teeth, Normal Gums, Normal Oropharynx, Normal Voice, No Airway Compromise Head: Atraumatic, Normocephalic Neck: Normal Inspection, Supple, Non-Tender, Full Range of Motion Respiratory/Chest: No Respiratory Distress, Lungs Clear, Normal Breath Sounds, No Accessory Muscle Use, Chest Non-Tender Cardiovascular: Normal Peripheral Pulses, Regular Rate, Rhythm, No Edema, No Gallop, No JVD, No Murmur, No Rub GI/Abdominal: Normal Bowel Sounds, Soft, Non-Tender, No Organomegaly, No Distention, No Abnormal Bruit, No Mass Rectal (Males) Exam: Normal Rectal Tone, Heme + Stool Back Exam: Normal Inspection, Full Range of Motion, NT Extremities: Normal Inspection, Normal Range of Motion, Non-Tender, Normal Capillary Refill, No Pedal Edema Neurological: Alert, Oriented, CN II-XII Intact, Normal Cognition, Normal Gait, Normal Reflexes, No Motor/Sensory Deficits Psychiatric: Normal Affect, Normal Mood Skin Exam: Warm, Dry, Intact, Normal Color, No Rash Lymphatic: No Adenopathy EKG INTERPRETATION EKG Date: 03/20/17 Time: 19:38 Rhythm: NSR Rate (Beats/Min): 84 Totz: Normal P-Wave: Present QRS: Normal ST-T: Normal QT: Normal Comparison: NA - No Prior EKG Course - Vital Signs Last Recorded V/S: Last Vital Signs Temp 36.8 C 03/20/17 18:19 Pulse 96 03/20/17 20:04 Resp 18 03/20/17 20:04 BP 125/54 L 03/20/17 20:04 Pulse Ox 98 03/20/17 20:04 - Orders/Labs/Meds Orders: Active Orders 24 hr Category Date Time Status EKG Documentation Completion [RC] ASDIRECTED Care 03/20/17 19:28 Active Peripheral IV Care [RC] . DIRECTED Care 03/20/17 19:19 Active TYPE AND SCREEN [BBK] Stat Lab 03/20/17 18:50 Received Sodium Chloride 0.9% [Normal Saline] 1,000 ml Med 03/20/17 19:00 Active IV ASDIRECTED Sodium Chloride 0.9% [Syrex Flush] Med 03/20/17 19:19 Active 5 ml FLUSH Q8HR PRN Peripheral IV Insertion Adult [OM.PC] Routine Oth 03/20/17 19:19 Ordered EKG 12 Lead [EK] Routine Ther 03/20/17 19:28 Ordered Medication Orders Sodium Chloride (Normal Saline) 1,000 mls @ 125 mls/hr IV ASDIRECTED ANI Last Admin: 03/20/17 19:09 Dose: 125 mls/hr Sodium Chloride (Syrex Flush) 5 ml FLUSH Q8HR PRN PRN Reason: Keep Vein Open Labs: Laboratory Tests 03/20/17 03/20/17 03/20/17 Range/Units 18:50 18:50 18:50 WBC 16.9 H (5.0-10.0) 10^3/uL RBC 2.34 L (4.50-6.00) 10^6/uL Hgb 6.9 L* (13.0-17.0) g/dL Hct 20.4 L (40.0-52.0) % MCV 87.0 (82.0-92.0) fL MCH 29.4 (27.0-31.0) pg MCHC 33.8 (32.0-36.0) g/dL RDW 19.1 H (11.5-14.5) % Plt Count 202 (150-300) 10^3/uL MPV 8.2 (7.4-10.4) fL Neut % (Auto) 93.1 H (50.0-70.0) % Lymph % (Auto) 4.7 L (20.0-40.0) % [place] % (Auto) 1.6 L (2.0-8.0) % Eos % (Auto) 0.3 L (1.0-3.0) % Baso % (Auto) 0.3 (0.0-1.0) % Neut # (Auto) 15.6 H (2.5-7.0) 10^3/uL Lymph # (Auto) 0.8 L (1.0-4.0) 10^3/uL [place] # (Auto) 0.3 (0.1-0.8) 10^3/uL Eos # (Auto) 0.1 (0.1-0.3) 10^3/uL Baso # (Auto) 0.1 (0.0-0.1) 10^3/uL PT 13.0 H (8.9-11.4) SEC INR 1.3 H (0.9-1.1) APTT 36.7 H (20.8-31.2) SEC Sodium 137 (136-145) mmol/L Potassium 5.3 (3.3-5.3) mmol/L Chloride 104 (98-115) mmol/L Carbon Dioxide 17.5 L (21.0-32.0) mmol/L BUN 121 H* (6-25) mg/dL Creatinine 6.21 H (0.51-1.17) mg/dL Est Cr Clr Drug Dosing TNP Estimated GFR (MDRD) 9 mL/min Glucose 142 H (70-110) mg/dL Calcium 5.9 L* (8.7-10.3) mg/dL Total Bilirubin 0.4 (0.2-1.0) mg/dL AST 78 H (15-37) U/L ALT 22 (12-78) U/L Alkaline Phosphatase 1062 H (46-116) IU/L Total Protein 4.4 L (6.4-8.2) g/dL Albumin 1.36 L (3.00-4.80) g/dL Meds: Medications Generic Name Dose Route Start Last Admin Trade Name Freq PRN Reason Stop Dose Admin Sodium Chloride 1,000 mls @ 125 mls/hr 03/20/17 19:00 03/20/17 19:09 Normal Saline IV 125 mls/hr ASDIRECTED ANI Administration Sodium Chloride 5 ml 03/20/17 19:19 Syrex Flush FLUSH Q8HR PRN Keep Vein Open Discontinued Medications Generic Name Dose Route Start Last Admin Trade Name Freq PRN Reason Stop Dose Admin Sodium Chloride 1,000 mls @ 999 mls/hr 03/20/17 19:19 03/20/17 20:01 Normal Saline IV 03/20/17 20:19 999 mls/hr .BOLUS ONE Administration Ondansetron HCl 4 mg 03/20/17 19:38 03/20/17 19:57 Zofran IVPUSH 03/20/17 19:39 4 mg ONETIME ONE Administration Departure - Departure Time of Disposition: 20:22 Disposition: Refer to Observation Condition: Serious Clinical Impression: Rectal bleed, End stage renal disease, Metabolic acidosis Anemia Qualifiers: Anemia type: iron deficiency Iron deficiency anemia type: chronic blood loss Qualified Code(s): D50.0 - Iron deficiency anemia secondary to blood loss ( chronic) - Discharge Information Forms: ED Department Discharge - My Orders Last 24 Hours: My Active Orders 03/20/17 18:50 TYPE AND SCREEN [BBK] Stat 03/20/17 19:00 Sodium Chloride 0.9% [Normal Saline] 1,000 ml IV ASDIRECTED 03/20/17 19:19 Peripheral IV Care [RC] . DIRECTED Sodium Chloride 0.9% [Syrex Flush] 5 ml FLUSH Q8HR PRN Peripheral IV Insertion Adult [OM.PC] Routine 03/20/17 19:28 EKG Documentation Completion [RC] ASDIRECTED EKG 12 Lead [EK] Routine - Assessment/Plan Last 24 Hours: My Active Orders 03/20/17 18:50 TYPE AND SCREEN [BBK] Stat 03/20/17 19:00 Sodium Chloride 0.9% [Normal Saline] 1,000 ml IV ASDIRECTED 03/20/17 19:19 Peripheral IV Care [RC] . DIRECTED Sodium Chloride 0.9% [Syrex Flush] 5 ml FLUSH Q8HR PRN Peripheral IV Insertion Adult [OM.PC] Routine 03/20/17 19:28 EKG Documentation Completion [RC] ASDIRECTED EKG 12 Lead [EK] Routine Assessment:: 1. rectal bleeding 2. anemia secondary to blood loss 3. ESRD- hospice 4. elevated LFTs Plan: 1. spoke with Adan Ramires who admitted for observation and blood transfusion 2. normal saline @100cc/hr with 75meq of bicarb 3. cbc/bmp in am 4. return to hospice- palliative care
[2017-03-20] MEDS ORDERED: Ondansetron 4 MG/2 ML SDV IVPUSH ONE (19:38)
[2017-03-20] MEDS ORDERED: Sodium Bicarbonate 75 MEQ in Dextrose 5% in Water 1,000 ML IV ONE ×2 (20:29)
[2017-03-21] MEDS ORDERED: Morphine 2 MG/ML Syringe IVPUSH PRN (01:21)
[2017-03-21] MEDS ORDERED: Pantoprazole 40 MG Vial IVPUSH ONE (01:22)
[2017-03-21] MEDS: Ondansetron 4 MG/2 ML SDV IV PRN ×2 (01:40→08:47)
[2017-03-21] MEDS ORDERED: SODIUM BICARBONATE IV ONE (03:05)
[2017-03-21] MEDS ORDERED: SODIUM IV ONE (03:05)
[2017-03-21] MEDS ORDERED: CHLORIDE IV ONE (03:05)
[2017-03-21 07:52] LABS: CHLORIDE,CL 104 mmol/L (98-115); SODIUM,NA 135 mmol/L (136-145)
[2017-03-21] MEDS: Acetaminophen/HYDROcodone 325-5 MG Tab PO PRN (08:56)
--- NOTE | 2017-03-21 11:41 | PCM.HP ---
H&P History of Present Illness - General Date of Service: 03/21/17 Admit Problem/Dx: Admission Diagnosis/Problem Admission Diagnosis/Problem Anemia Source of Information: Patient, Old Records, Provider, RN History Limitations: Reports: No Limitations Left Pain Score (Numeric/FACES): 3 - Related Data Allergies/Adverse Reactions: Allergies Allergy/AdvReac Type Severity Reaction Status Date / Time aminocaproic acid Allergy Rash Verified 03/20/17 22:33 [From Amicar] Home Medications: Home Meds Sertraline [Zoloft] 25 mg PO DAILY 03/11/15 [History] Acetaminophen [Tactinal] 325 mg PO Q4H 03/20/17 [History] Bisacodyl [Dulcolax] 5 mg PO BID 03/20/17 [History] Bisacodyl [Dulcolax] 10 mg RECTAL DAILY PRN 03/20/17 [History] Docusate Sodium [Colace] 100 mg PO TID PRN 03/20/17 [History] Haloperidol [Haldol] 5 mg PO Q6H PRN 03/20/17 [History] Hyoscyamine Sulfate [Levsin] 0.125 mg PO Q4H PRN 03/20/17 [History] Morphine Sulfate Concentrate 2.5 mg BUCCAL Q4H PRN 03/20/17 [History] Ondansetron [Zofran] 4 mg PO TID PRN 03/20/17 [History] Sennosides/Docusate Sodium [Senna-Docusate Sodium Tablet] 1 each PO BID [History] Past Medical History HEENT History: Reports: Hard of Hearing Cardiovascular History: Reports: Blood Clots/VTE/DVT, High Cholesterol, Other ( See Below) Other Cardiovascular History: Edema. Respiratory History: Reports: COPD Other Respiratory History: Current smoker. Gastrointestinal History: Reports: Other (See Below) Other Gastrointestinal History: currently has diarrhea, poor appetite Genitourinary History: Reports: Prostate Disorder, Other (See Below) Other Genitourinary History: chronic kidney disease, prostate cancer, suprapubic catheter. Musculoskeletal History: Reports: Arthritis, Other (See Below) Other Musculoskeletal History: Chronic shoulder pain Neurological History: Reports: Vertigo Psychiatric History: Reports: Anxiety, Depression Hematologic History: Reports: Anticoagulation Therapy, Blood Transfusion(s) Oncologic (Cancer) History: Reports: Prostate Dermatologic History: Reports: Other (See Below) Other Dermatologic History: Scab to right forearm. - Infectious Disease History Infectious Disease History: Reports: Chicken Pox, Influenza, Measles, Mumps - Past Surgical History HEENT Surgical History: Reports: Cataract Surgery Male Surgical History: Reports: Suprapubic Catheter Placement, Other (See Below) Other Male Surgeries/Procedures: Cytoscopy. Social & Family History - Family History Family Medical History: Noncontributory HEENT: Reports: None Cardiac: Reports: Other (See Below) Respiratory: Reports: None GI: Reports: None : Reports: None OBGYN: Reports: None Musculoskeletal: Reports: None Neurological: Reports: None Psychiatric: Reports: None Endocrine/Metabolic: Reports: None Hematologic: Reports: None Immunologic: Reports: None Dermatologic: Reports: None Oncologic: Reports: None - Tobacco Use Smoking Status *Q: Current Every Day Smoker Years of Tobacco use: 65 Packs/Tins Daily: 1.5 Used Tobacco, but Quit: No Second Hand Smoke Exposure: No - Caffeine Use Caffeine Use: Reports: Coffee, Soda Caffeine Use Comment: coffee daily, seldom soda - Alcohol Use Days Per Week of Alcohol Use: 1 Number of Drinks Per Day: 2 Total Drinks Per Week: 2 - Recreational Drug Use Recreational Drug Use: No H&P Review of Systems - Review of Systems: Review Of Systems: See Below General: Reports: Malaise, Weakness, Decreased Appetite. Denies: Fever, Night Sweats, Diaphoresis HEENT: Reports: No Symptoms Pulmonary: Reports: Cough Cardiovascular: Reports: Dyspnea on Exertion, Edema. Denies: Chest Pain, Palpitations Gastrointestinal: Reports: Abdominal Pain, Black Stool, Decreased Appetite, Melena. Denies: Hematochezia Genitourinary: Reports: Other (superubic catherter. ). Denies: Hematuria Musculoskeletal: Reports: No Symptoms Skin: Reports: Pallor, Dryness. Denies: Jaundice Psychiatric: Reports: No Symptoms Neurological: Reports: Dizziness, Pre-Existing Deficit, Weakness. Denies: Confusion Hematologic/Lymphatic: Reports: Anemia, Easy Bleeding, Easy Bruising Exam - Exam Exam: See Below - Vital Signs Vital Signs: Last Vital Signs Temp 96.6 F 03/21/17 06:48 Pulse 75 03/21/17 06:48 Resp 16 03/21/17 06:48 BP 132/75 03/21/17 06:48 Pulse Ox 99 03/21/17 06:48 Weight: 156 lb - Exam Quality Assessment: Urinary Catheter (suprapubic catherter. ). No: Supplemental Oxygen, Skin Breakdown General: Alert, Oriented, Mild Distress. No: Sedated, Lethargic HEENT: Conjunctiva Clear, Hearing Intact Neck: Supple. No: JVD Lungs: Rhonchi (significant rhonchi ant/post) Cardiovascular: Regular Rate, Regular Rhythm GI/Abdominal Exam: Soft, Non-Tender. No: Rigid, Rebound (Male) Exam: Deferred Rectal (Males) Exam: Deferred Back Exam: No: CVA Tenderness (L), CVA Tenderness (R) Extremities: Pedal Edema (right LE). No: Increased Warmth Peripheral Pulses: 1+: Radial (R), 2+: Radial (L) Neurological: Cranial Nerves Intact, Sensation Intact Neuro Extensive - Mental Status: Alert, Oriented x3, Normal Mood/Affect, Normal Cognition Neuro Extensive - Motor, Sensory, Reflexes: CN II-XII Intact - Patient Data Lab Results Last 24 hrs: Laboratory Results - last 24 hr 03/21/17 03/21/17 Range/Units 07:15 07:15 WBC 15.4 H (5.0-10.0) 10^3/uL RBC 2.81 L (4.50-6.00) 10^6/uL Hgb 8.3 L (13.0-17.0) g/dL Hct 24.8 L (40.0-52.0) % MCV 88.1 (82.0-92.0) fL MCH 29.5 (27.0-31.0) pg MCHC 33.5 (32.0-36.0) g/dL RDW 17.9 H (11.5-14.5) % Plt Count 161 (150-300) 10^3/uL MPV 8.1 (7.4-10.4) fL Neut % (Auto) 87.9 H (50.0-70.0) % Lymph % (Auto) 7.8 L (20.0-40.0) % [place] % (Auto) 3.5 (2.0-8.0) % Eos % (Auto) 0.2 L (1.0-3.0) % Baso % (Auto) 0.6 (0.0-1.0) % Neut # (Auto) 13.6 H (2.5-7.0) 10^3/uL Lymph # (Auto) 1.2 (1.0-4.0) 10^3/uL [place] # (Auto) 0.5 (0.1-0.8) 10^3/uL Eos # (Auto) 0.0 L (0.1-0.3) 10^3/uL Baso # (Auto) 0.1 (0.0-0.1) 10^3/uL Sodium 135 L (136-145) mmol/L Potassium 5.5 H (3.3-5.3) mmol/L Chloride 104 (98-115) mmol/L Carbon Dioxide 19.3 L (21.0-32.0) mmol/L BUN 125 H* (6-25) mg/dL Creatinine 6.14 H (0.51-1.17) mg/dL Est Cr Clr Drug Dosing TNP Estimated GFR (MDRD) 9 mL/min Glucose 110 (70-110) mg/dL Calcium 5.7 L* (8.7-10.3) mg/dL Result Diagrams: 03/21/17 07:15 03/21/17 07:15 *Q Meaningful Use (ADM) - VTE *Q VTE Criteria *Q: - Stroke *Q Stroke Criteria *Q: - AMI *Q AMI Criteria *Q: Problem List Initiated/Reviewed/Updated: Yes Orders Last 24hrs: Active Orders 24 hr Category Date Time Status Patient Status [ADT] Routine ADT 03/20/17 20:24 Ordered Oxygen Therapy [RC] Care 03/20/17 20:24 Active Pulse Oximetry [RC] .PRN Care 03/20/17 20:25 Active Up With Assistance [RC] DAILY Care 03/20/17 20:24 Active Vital Signs [RC] 0300,0700,1100,1500,1900,2300 Care 03/20/17 20:24 Active Regular Diet [DIET] Diet 03/21/17 Breakfast Active TYPE AND SCREEN [BBK] Stat Lab 03/20/17 18:50 Received Acetaminophen/HYDROcodone [Roland 325-5 MG] Med 03/20/17 22:07 Active 1 - 2 tab PO Q4H PRN Morphine Med 03/21/17 01:21 Active 1 - 3 mg IVPUSH Q2H PRN Ondansetron [Zofran] Med 03/20/17 20:24 Active 4 mg IV Q6H PRN Sodium Chloride 0.9% [Syrex Flush] Med 03/20/17 20:24 Active 5 ml FLUSH Q8HR PRN Peripheral IV Insertion Adult [OM.PC] Routine Oth 03/20/17 20:24 Ordered Transfuse PRBC [Transfuse Red Blood Cells] [COMM] Stat Oth 03/20/17 20:51 Ordered Transfuse PRBC [Transfuse Red Blood Cells] [COMM] Stat Ot 03/20/17 21:46 Ordered Transfuse RBC [Transfuse Red Blood Cells] [COMM] Stat Ot 03/20/17 21:00 Ordered Resuscitation Status Routine Resus Stat 03/20/17 20:24 Ordered Medication Orders Hydrocodone Bitart/Acetaminophen (Roland 325-5 Mg) 1 - 2 tab PO Q4H PRN PRN Reason: Pain Last Admin: 03/21/17 08:56 Dose: 1 tab Morphine Sulfate (Morphine) 1 - 3 mg IVPUSH Q2H PRN PRN Reason: Pain Last Admin: 03/21/17 01:41 Dose: 3 mg Ondansetron HCl (Zofran) 4 mg IV Q6H PRN PRN Reason: Nausea/Vomiting Last Admin: 03/21/17 08:47 Dose: 4 mg Admin: 03/21/17 01:40 Dose: 4 mg Sodium Chloride (Syrex Flush) 5 ml FLUSH Q8HR PRN PRN Reason: Keep Vein Open Assessment/Plan Comment:: History of Present Illness: This 76 gentleman was admitted through the ED due to anemia. The patient was just placed on Hospice due to terminal bladder/Prostate malignancy however he just revoked it and desires to be treated for anemia with transfusions only. He was sent to us from [facility] center with rectal bleeding. Pt reports 3 episodes of BRBPR that started about an hour prior to him arriving. He denies any chest pain, shortness of breath but admits so some weakness. He has prostate cancer with metastases, iron-deficiency anemia, and depression. Mr Iqbal was recently transferred and discharged from [facility] for GI Bleed and renal failure. Patient was admitted on March 11, 2017, with minimal oral intake, nausea, and vomiting. Patient was found to have creatinine of 4.7, from his previous baseline of 2 with black stools. He an EGD and was found to have gastric ulcer. His creatinine was elevated, and ultrasound of the kidneys showed bilateral hydronephrosis. Patient underwent CT scan with concern of bilateral hydronephrosis then had cystoscopy which showed malignant cells. At the time urology was not able to find the ureteral orifice stent placement. After nephrology was consulted and suggested percutaneous nephrostomy tube placement the patient refused and was discharged eventually back home and then eventually to long-term care as patient stated he did not want anymore further treatments. Just a few days ago he was placed in hospice care--however has revoked his hospice status but only desires blood transfusions CODE STATUS, DNR with comfort measures Impression/Plan. Anemia, due to GI blood loss. Transfused 1 unit of packed red blood cells. Hemoglobin >8. Hold off on Lasix Acute on chronic renal failure stage IV; hold off on Lasix Bilateral hydronephrosis, with prostate CA. Currently has suprapubic catheter Advanced prostate cancer, contributing to bilateral hydronephrosis, suprapubic catheter, minimal output
[2017-03-21] MEDS: Sodium Chloride 0.9% 1,000 ML IV SCH (14:41)
[2017-03-22] MEDS: Ondansetron 4 MG/2 ML SDV IV PRN (00:47)
[2017-03-22] MEDS: Sodium Chloride 0.9% 1,000 ML IV SCH (06:21)
[2017-03-22] MEDS: Acetaminophen/HYDROcodone 325-5 MG Tab PO PRN (06:24)
[2017-03-22 10:54] VITALS: BP 124/60
[2017-03-22] MEDS ORDERED: ALPRAZolam 0.25 MG Tab PO ONE (10:56)
--- NOTE | 2017-03-23 08:03 | DISCH ---
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 BRIEF HISTORY: This 76-year-old gentleman was admitted to the ED due to some bright red blood per rectum and some anemia. He had just been placed on hospice a few days prior due to terminal bladder and prostate malignancy, however, after he revoked it he desired to be treated for blood transfusions. He had been recently seen and evaluated and treated at [facility] due to ongoing concern for GI hemorrhage and advanced bladder prostate CA. He was sent to [place]. He was seen by Urology and underwent cystoscopy, which showed malignant cells in the bladder. Dr. Perez was not able to find the urethral orifice to place a stent. Nephrology was consulted in for possible percutaneous nephrostomy tubes, however, the patient declined all treatment regarding this. He wanted to be discharged on hospice to go home and " at home." He was then placed in long- term care center in [place], [place] [facility], however, he did most recently revoked his hospice, came to the ED. He was admitted and a unit of blood was transfused. The patient refused all other imaging. The patient did have an EGD, which was found to have a gastric ulcer. He has an elevated creatinine level. Again he got severe bilateral hydronephrosis. CT scan determined it was bilateral. Although, the patient did revoke his hospice designation, he is a DNR. HOSPITAL COURSE: The patient was placed in observation. He only desired light fluids and blood. He was transfused 1 unit of packed red blood cells. His hemoglobin was less than 8, it responded accordingly. Held off on Lasix due to severe high creatinine level around 6.0. Does have acute on chronic renal failure, stage 4. Did have a very little urine output. MEDICATION ADJUSTMENTS/CHANGES: 1. Acetaminophen/hydrocodone 325/5 one to two tabs p.o. every four hours p.r.n. for pain. Limiting acetaminophen total to less than 3000 mg per day all sources, this is newly added. 2. Discontinue buccal morphine. 3. Omeprazole 20 mg p.o. daily, newly added, GI pathology. 4. Discontinue hyoscyamine as this could have complications due to obstructive uropathy. 5. The patient can continue on all other home medications. LABS: When he came in, he had a white count of 16.9, undetermined any active source of infection. He did refuse any type of chest x-rays or other diagnostics to determine active infection, however, I did treat him empirically with 1 g of Rocephin. His hemoglobin was 8.3 on discharge improved from 6.8 on admission with a corresponding hematocrit 24.8, percentage neutrophils did decrease from 93% to 86%. INR 1.3. Sodium 135, potassium between 5.3, BUN 125, creatinine 6.14, slightly improved creatinine on discharge. Calcium 5.7. He does have a significantly elevated alkaline phosphatase at 1062, however, it was quit elevated while in [place] consistently high. No history of hepatobiliary origin, albumin 1.36, total protein 4.4, AST twice elevation at 78, ALT normal at 22. Vital signs on discharge, temperature 98.0, blood pressure 137/69, O2 sats 98% on room air, respiratory rate 20. MICROBIOLOGY REPORT: None. Total output the last 24 hours was 300 mL urine. He did not have any further GI bleeding while in the hospital. He has suprapubic catheter and that was drained dependently. I did place the patient with normal saline with 75 mEq of sodium bicarb due to his acute tubular necrosis, likely GI bleed etiology and dehydration. DISPOSITION: The patient was in observation status. He will be discharged back to [facility]. Long discussion with the patient regarding future options. Right now, he is still refusing hospice, however, he is also refusing a lot of other treatments including transfer to [place] for any further evaluation. He is declining any peripheral nephrostomy tubes or any further diagnostics, however, he will agree to a hemoglobin assessment mid-week. He also desires transfusions if applicable such as fluids or blood transfusions as outpatient in the near future if needed. Nurses to report any increase in fever, worsening abdominal pain, vomiting, or worsening GI bleed. Greater than 50 minutes was spent on this discharge planning and process and care coordination. /[id number]/MODL MTDD
== END 2017-03-22 13:30 ==
LOC: KA.ED 18:05 → KA.MS 20:20
PROVIDERS: ADMIT Physician Assistant Medical; ATTEND Nurse Practitioner Family
DX: D50.0 Iron deficiency anemia secondary to blood loss (chronic) (principal); N17.9 Acute kidney failure, unspecified; C79.82 Secondary malignant neoplasm of genital organs; N13.9 Obstructive and reflux uropathy, unspecified; N13.30 Unspecified hydronephrosis; N18.9 Chronic kidney disease, unspecified; F17.210 Nicotine dependence, cigarettes, uncomplicated; E78.00 Pure hypercholesterolemia, unspecified; J44.9 Chronic obstructive pulmonary disease, unspecified; F41.9 Anxiety disorder, unspecified; F32.9 Major depressive disorder, single episode, unspecified; Z88.8 Allergy status to other drugs, medicaments and biological substances; Z79.01 Long term (current) use of anticoagulants; Z79.899 Other long term (current) drug therapy; Z98.890 Other specified postprocedural states
CPT/HCPCS: 36415; 36430; 80048; 80053; 85025; 85610; 85730; 86850; 86900; 86901; 86920; 86922; 93005; 96361; 96365; 96366; 96375; 96376; 99285; A9270; C9113; G0378; J2270; J2405; J7030; P9016; 96374; J7060